=== PATIENT | female | born 1995 | race Two or more races ===

== ENCOUNTER → 2023-03-22 13:05 | Outpatient (BNVA) | payer OTHER, SELFPAY | PROVIDERS: PCP Internal Medicine; Visit Provider Physician Assistant Surgical ==

== ENCOUNTER 2023-03-30 07:48 | Outpatient (REF) | payer OTHER, SELFPAY ==
[2023-03-31 11:42] LABS: H Pylori Breath Test Negative (Negative)
== END 2023-03-30 07:49 | disposition home or self-care (01) ==
LOC: HO.LNP 07:48
PROVIDERS: Visit Provider Physician Assistant Surgical
DX: E66.01 Morbid (severe) obesity due to excess calories (principal)
CPT/HCPCS: 83013

== ENCOUNTER → 2023-03-30 08:32 | Outpatient (BNVA) | payer OTHER, SELFPAY | PROVIDERS: PCP Internal Medicine; Visit Provider Physician Assistant Surgical | DX: Z11.0 Encounter for screening for intestinal infectious diseases (principal); E66.01 Morbid (severe) obesity due to excess calories; Z68.42 Body mass index [BMI] 45.0-49.9, adult | CPT/HCPCS: 99202; 99211 ==

== ENCOUNTER 2023-03-31 10:00 | Outpatient (REF) | payer OTHER, SELFPAY ==
--- NOTE | ~2023-03-31 | XR_ITS ---
EXAMINATION: XR CHEST CLINICAL INFORMATION: Obesity COMPARISON: None available. TECHNIQUE: 2 views of the chest were obtained. FINDINGS: No significant abnormality is noted involving the heart, lungs, mediastinum, bony thorax or soft tissues. XR/XR chest 2V IMPRESSION: Unremarkable examination.
--- NOTE | 2023-03-31 10:08 | ECG_ITS ---
Test Reason : E66.01 Blood Pressure : / mmHG Vent. Rate : 081 BPM Atrial Rate : 081 BPM P-R Int : 140 ms QRS Dur : 072 ms QT Int : 402 ms P-R-T Axes : 024 037 008 degrees QTc Int : 466 ms Normal sinus rhythm Normal ECG No previous ECGs available Referred By: Valery Duncan Electronically Signed By:FANI GUZMAN MD
[2023-03-31 10:22] LABS: MANUAL DIFF FLAG NO
[2023-03-31 10:42] LABS: Basophils Percent Auto 0.4 % (0-2); Eosinophils Absolute Auto 0.1 X10*3/uL (0.0-0.4); Eosinophils Percent Auto 1.1 % (0-4); Hematocrit 39.8 % (37.0-47.0); Hemoglobin 12.5 g/dl (12.0-16.0); Imm Gran Abs Auto 0.04 X10*3/uL (0.00-0.03); Imm Gran Pct Auto 0.5 % (0.0-0.4); Lymphocytes Absolute Auto 1.2 X10*3/uL (1.2-4.9); Lymphocytes Percent Auto 14.6 % (20-40); Mean Corpuscular HGB Conc 31.4 g/dl (31.0-35.0); Mean Corpuscular Hemoglobin 26.1 pg (27.0-33.0); Mean Corpuscular Volume 83.1 fL (80.0-98.0); Mean Platelet Volume 11.5 fL (9.4-12.3); Monocytes Absolute Auto 0.5 X10*3/uL (0.1-1.2); Neutrophils Absolute Auto 6.3 x10*3/uL (2.0-8.3); Neutrophils Percent Auto 77.4 % (45-73); Platelet Count 289 X10*3/uL (160-400); Red Blood Count 4.79 X10*6/uL (4.20-5.50); Red Cell Distribution Width 13.7 % (11.0-16.0); White Blood Count 8.1 X10*3/uL (4.8-10.8)
[2023-03-31 11:29] LABS: Estimated Average Glucose 108 mg/dL; Hemoglobin A1c % 5.4 %
[2023-03-31 11:30] LABS: Alanine Aminotransferase 13 U/L (0-31); Albumin Level 4.2 g/dL (3.5-5.0); Alkaline Phosphatase 91 U/L (39-117); Anion Gap 14 (12-20); Aspartate Amino Transferase 13 U/L (5-31); Bilirubin Total 0.8 mg/dL (0.0-1.0); Blood Urea Nitrogen 9 mg/dL (9-16); C Reactive Protein 0.87 mg/dL (< or = 0.50); Carbon Dioxide 25 mmol/L (22-29); Chloride 104 mmol/L (96-108); Cholesterol 177 mg/dL; Estimated Glomerular Filt Rate > 60; Glucose Random 93 mg/dL (60-115); HDL Cholesterol 41 mg/dL; Iron 54 mcg/dL (30-160); LDL Cholesterol Calculated 117 mg/dl; Percent Iron Saturation 16 % (15-50); Sodium 139 mmol/L (135-145); Total Iron Binding Capacity 332 mcg/dL (228-428); Total Protein 7.6 g/dL (6.5-8.0); Triglycerides 97 mg/dL; Unsaturated Iron Binding 278 ug/dL
[2023-03-31 11:39] LABS: Ferritin 73 ng/mL (10-122); Insulin 21 uU/mL (2-29); TSH reflex Free T4 2.23 uIU/mL (0.32-4.0); Vitamin D 25-OH Total 24.4 ng/mL (>30)
[2023-03-31 11:56] LABS: Folate 11.9 ng/mL (> or = 4.0); Vitamin B12 394 pg/mL (200-900)
[2023-04-04 15:34] LABS: Calcium (PTHI) 9.1 mg/dL (8.6-10.2); PTHI 112 pg/mL (16-77)
[2023-04-06 01:03] LABS: Zinc 68 mcg/dL (60-130)
[2023-04-06 16:02] LABS: Vitamin A 39 mcg/dL (38-98)
[2023-04-08 13:54] LABS: Vitamin B1 13 nmol/L (8-30)
== END 2023-03-31 10:01 | disposition home or self-care (01) ==
LOC: HO.LAB 10:00
PROVIDERS: PCP Internal Medicine; Visit Provider Physician Assistant Surgical
DX: E66.01 Morbid (severe) obesity due to excess calories (principal)
CPT/HCPCS: 36415; 71046; 80053; 80061; 82306; 82607; 82728; 82746; 83036; 83525; 83540; 83970; 84425; 84443; 84590; 84630; 85025; 86140; 93005

== ENCOUNTER 2023-04-13 09:54 | Outpatient (REF) | payer OTHER, SELFPAY ==
--- NOTE | ~2023-04-13 | FL_ITS ---
EXAMINATION: XR FLUOROSCOPY UPPER GI WITH AIR CLINICAL INFORMATION: Obesity COMPARISON: None available. TECHNIQUE: Upper GI was performed using thin and thick barium and effervescent granules FINDINGS: Esophageal motility is normal. There is gastroesophageal reflux. No hernia is seen. The stomach and duodenum are normal. No fold thickening, mass, ulcer or stricture. FLUOROSCOPY TIME: 0.3 minutes DOSE AREA PRODUCT: 3.4 miller per centimeter squared. Total dose 24 mgy. 16 saved fluoroscopic images. FL/FL upper GI w air IMPRESSION: Gastroesophageal reflux otherwise unremarkable exam
== END 2023-04-13 09:55 | disposition home or self-care (01) ==
LOC: HO.XRAY 09:54
PROVIDERS: PCP Internal Medicine; Visit Provider Physician Assistant Surgical
DX: E66.01 Morbid (severe) obesity due to excess calories (principal)
CPT/HCPCS: 74246

== ENCOUNTER 2023-04-18 08:24 | Outpatient (REF) | payer OTHER, SELFPAY ==
--- NOTE | ~2023-04-18 | US_ITS ---
EXAMINATION: US COMPLETE ABDOMEN WITH LIVER ELASTOGRAPHY CLINICAL INFORMATION: Morbid obesity COMPARISON: None available. TECHNIQUE: Real-time imaging of the abdominal viscera. Noninvasive ultrasound liver fibrosis assessment is performed using Mamadou Elast[employer] point quantification shear wave elastography (2D-SWE) with a C5-2 MHz transducer. Multiple elastography samples are obtained. FINDINGS: PANCREAS: Normal. The visualized pancreatic head and body are normal in appearance. The remainder of the pancreas is obscured from visualization by the overlying bowel gas. ABDOMINAL AORTA: The proximal, middle, and distal aortic segments are normal in caliber. INFERIOR VENA CAVA: Visualized portions are normal. LIVER: Normal. The liver demonstrates normal size, contour and echogenicity. No focal lesion or intrahepatic biliary duct dilatation. The right lobe measures 16.4 cm in length. The left lobe measures 10.5 cm in length. Portal flow is hepatopedal Shear wave liver elastography median stiffness is 1.61 m/s (reference: normal median stiffness is 1.3 m/s or less). IQR/median stiffness to assess sampling precision is 0.11 (reference: good quality data set is IQR/median stiffness of 0.15 or less). GALLBLADDER: Normal. The gallbladder is physiologically distended without evidence of stones, sludge, polyps, wall thickening or pericholecystic fluid. COMMON BILE DUCT: Normal in caliber measuring 0.3 cm in diameter. RIGHT KIDNEY: Normal. No hydronephrosis. No renal calculi or focal parenchymal lesions. The kidney measures 10.5 cm in maximum dimension. LEFT KIDNEY: Normal. No hydronephrosis. No renal calculi or focal parenchymal lesions. The kidney measures 11.1 cm in maximum dimension. SPLEEN: Normal. The spleen measures 11.7 cm in maximum dimension. FREE FLUID: None. US/US abdomen comp w elastography IMPRESSION: 1. Normal abdominal ultrasound study. 2. Liver elastography: In the absence of other known clinical signs, measurements rule out compensated advanced chronic liver disease. If there are known clinical signs, further testing may be needed for confirmation. REFERENCE: Society of Radiologists in Ultrasound Liver Stiffness Thresholds (2019): LIVER STIFFNESS THRESHOLDS: *Liver Stiffness equal or less than 1.3 m/s: High probability of being normal. *Liver Stiffness less than 1.7 m/s: In the absence of other known clinical signs, rules out compensated advanced chronic liver disease. *Liver Stiffness 1.7-2.1 m/s: Suggestive of compensated advanced chronic liver disease but need further test for confirmation. *Liver Stiffness over 2.1 m/s: Rules in compensated advanced chronic liver disease. *Liver Stiffness over 2.4 m/s: Suggestive of clinically significant portal hypertension. QUALITY OF DATA SET: *IQR/Median value equal or less than 0.15 implies a quality data set. *IQR/Median value over 0.15 implies a poor quality data set. SIGNIFICANT CHANGE FROM PRIOR EXAM: Significant change if liver stiffness measurement is 10% or greater from prior exam. OTHER CONSIDERATIONS: The stage of liver fibrosis may be overestimated in the setting of acute hepatitis, liver inflammation, elevated liver function tests, hepatic vascular congestion, obstructive cholestasis, non-fasting state, and infiltrative diseases such as amyloidosis and lymphoma. In some patients with NAFLD, the liver stiffness thresholds for compensated advanced chronic liver disease may be lower. In causes other than viral hepatitis and NAFLD, liver stiffness thresholds are not well established.
== END 2023-04-18 08:25 | disposition home or self-care (01) ==
LOC: HO.US 08:24
PROVIDERS: PCP Internal Medicine; Visit Provider Physician Assistant Surgical
DX: E66.01 Morbid (severe) obesity due to excess calories (principal)
CPT/HCPCS: 76705; 76981

== ENCOUNTER 2023-04-26 10:31 | Outpatient (AMB) | payer OTHER, SELFPAY ==
[2023-04-26 10:33] VITALS: BP 120/68; PULSE 81; TEMP 36.3; O2SAT 95; BMI 44.2
--- NOTE | 2023-04-26 10:33 | A.OFFVIS_ITS ---
Intake VS Expanded 04/26/23 10:33 Height 5 ft 3 in Weight 249 lb 6.4 oz BMI 44.2 BP 120/68 Blood Pressure Location Rt brachial Blood Pressure Position Sitting Pulse 81 Pulse Source Pulse Oximeter Temp 97.4 F Temperature Source Temporal Artery Scan Pulse Oximetry 95 Oxygen Delivery Method Room Air Body Fat 110.4 Body Fat Percentage 44.3 Free Fat Mass 138.8 Muscle Mass 131.8 Visceral Mass 12.0 Water Mass 99.8 BMR 1,984 Intake Visit Reasons: (OV) F/U SWL Allergies No Known Allergies Allergy (Verified 04/26/23 10:36) Medication List - Last Reconciled 04/26/23 by СЕРГЕЙ Horton cholecalciferol (vitamin D3) 50 mcg PO DAILY HPI HPI Comments History of Present Illness Details The patient is a pleasant 28 year old female who returns to the clinic for pre-operative surgical weight loss management.? They were last seen in the office on 03/30/2023, recorded weight at that time was 258.2 pounds, with a BMI of 45.7.? Today's weight is 249.4 pounds and BMI is 44.2.? There has been a weight loss of 8.8 pounds since initiating the surgical weight loss program on 03/30/2023 with a total body weight loss of 3.4 %. Pre op work up completed as follows: SWL classes:? 02/21 BH appts: 05/03? RD appts: 05/02 Labs: 03/31, high CRP and PTH, low vit D H. pylori: 03/30, negative CXR: 03/31, unremarkable exam EK/15, NSR ABD U/S: done 04/18, read pending UGI: 04/13 Gastroesophageal reflux otherwise unremarkable exam? Sleep study: 04/28 Current meal plan includes: 2 Premier Protein shakes: 2 scoops in 8oz vanilla unsweetened almond milk (30 calories per 8oz) at 8:30am-10:30am and 1 scoop in 8oz vanilla unsweetened almond milk at 3pm-5pm 2 protein bars ([employer] or Atkins) at 12pm-2pm Dinner at 7pm (8 forks / 4 oz of protein and 8 forks / 4 oz of salad/vegetables).? Pt will sometimes have some yogurt (4oz) with lunchtime protein bar if she feels hungry Pt reports she changed to [employer] shakes. Current exercise plan includes: started walking, 30 min outside 3x/week PFSH Surgical History Hx of foot surgery Hx of wisdom tooth extraction Family History Mother Asthma Father No problems noted. Sister No problems noted. Sister PCOS (polycystic ovarian syndrome) Sister Epilepsy Sister Diabetes Son Autism Son Autism Son No problems noted. Social History Alcohol intake: current Alcohol intake frequency: holidays/special occasions only Patient Tobacco Use Status: Never used Tobacco Physical Exam Vital Signs: Last Vital Signs Temp 97.4 F 04/26/23 10:33 Pulse 81 04/26/23 10:33 BP 120/68 04/26/23 10:33 Pulse Ox 95 04/26/23 10:33 Oxygen Delivery Method Room Air 04/26/23 10:33 BMI result Body Mass Index 44.2 Assessment & Plan Assessment & Plan (1) Morbid obesity: Code(s): E66.01 - Morbid (severe) obesity due to excess calories Plan Pt to continue same meal plan but make sure she has either half a protein bar in evening, or a few oz yogurt at lunch to get to protein goal. Encouraged increasing exercise as able but also congratulated pt on making exercise a part of her routine considering she has a busy work schedule and has 3 young children. Labs reviewed, vit D previously supplemented. Will have pt meet with Dr. Thomas in 2 weeks, then next visit with me 2 weeks subsequent to that. Patient is morbidly obese and is not considered stable at this time. I spent a total of 30 minutes reviewing/updating records, examining the patient and counseling the patient on weight management as detailed above. Coding Level of Care Code Est Pt Level 4 (64173) Diagnoses Morbid obesity E66.01
== END 2023-04-26 11:08 | disposition home or self-care (01) ==
PROVIDERS: PCP Internal Medicine; Visit Provider Physician Assistant Surgical
DX: E66.01 Morbid (severe) obesity due to excess calories (principal); Z68.41 Body mass index [BMI] 40.0-44.9, adult
CPT/HCPCS: 99214

== ENCOUNTER → 2023-04-26 10:31 | Outpatient (BNVA) | payer OTHER, SELFPAY | PROVIDERS: PCP Internal Medicine; Visit Provider Physician Assistant Surgical | DX: E66.01 Morbid (severe) obesity due to excess calories (principal); Z68.41 Body mass index [BMI] 40.0-44.9, adult | CPT/HCPCS: 99212 ==

== ENCOUNTER → 2023-04-28 13:50 | Outpatient (REF) | payer OTHER, SELFPAY | LOC: HO.SL 13:50 | PROVIDERS: PCP Internal Medicine; Visit Provider Physician Assistant Surgical | DX: R06.83 Snoring (principal); E66.01 Morbid (severe) obesity due to excess calories | CPT/HCPCS: 95806 ==

== ENCOUNTER → 2023-04-28 13:59 | Outpatient (BNV) | payer OTHER, SELFPAY | PROVIDERS: PCP Internal Medicine; Visit Provider Psychiatry & Neurology Neurology | DX: R06.83 Snoring (principal) | CPT/HCPCS: 95806 ==

== ENCOUNTER 2023-05-02 09:00 | Outpatient (AMB) | payer OTHER, SELFPAY ==
--- NOTE | 2023-05-02 09:19 | MHC.AMNUTRGE ---
Intake Intake Visit Reasons: VIDEO Initial Nutrition [facility] Allergies No Known Allergies Allergy (Verified 04/26/23 10:36) HPI Nutrition Presentation Reason for consult elevated BMI Diet Assmnt Details 2 Aug[employer] protein shakes 26g, 1 bar, 1 meal Tuesday night had potato salad, rice, and meat. didn't feel good after eating it yesterday had alisa soup Stopped drinking soda and juice. Trying to drink more water. Exercise: walking 30 minute 1.5 miles - tracking on apple watch [facility] online classes: 01/22 completed Previous weight loss methods attempted Never tried to really change eating habits. Dietary counseling reduction Meal frequency regular: breakfast (linda dnouts breakfast sandwich , refresher drink), dinner and snacks and irregular: lunch ([employer] or fast food) Lifestyle Eating out 4 or more times/week Food frequency Dairy: daily (cheese and yogurt ), Fruit: daily, Vegetables: daily, Grains/pasta/breads/cereal (carbs): daily, Meats/poultry/fish (protein): daily, Soda: daily (but stopped 1 month ), Juice: daily and Coffee: never Diagnosis Nutrition problem #1 overweight/obesity As related to (etiology) #1 excess energy intake and physical inactivity As evidenced by (sign/symptom) #1 high BMI Monitoring/Goals Nutrition problem monitoring total energy intake, level of knowledge/skill, total PRO intake, total CHO intake, weight and oral fluids Outcome progress progressing Learning/Education Readiness to learn good Stages of change action Educational materials provided Yes Most Recent Diabetes Results: Cholesterol 177 mg/dL 03/31/23 HDL Cholesterol 41 mg/dL 03/31/23 Triglycerides 97 mg/dL 03/31/23 Creatinine 0.76 mg/dL (0.5-1.4) 03/31/23 Blood Urea Nitrogen 9 mg/dL (9-16) 03/31/23 Sodium 139 mmol/L (135-145) 03/31/23 Potassium 4.0 mmol/L (3.3-5.1) 03/31/23 Chloride 104 mmol/L (96-108) 03/31/23 Carbon Dioxide 25 mmol/L (22-29) 03/31/23 Calcium 9.0 mg/dL (8.4-10.2) 03/31/23 AST 13 U/L (5-31) 03/31/23 ALT 13 U/L (0-31) 03/31/23 Total Protein 7.6 g/dL (6.5-8.0) 03/31/23 Albumin 4.2 g/dL (3.5-5.0) 03/31/23 PFSH Surgical History Hx of foot surgery Hx of wisdom tooth extraction Family History Mother Asthma Father No problems noted. Sister No problems noted. Sister PCOS (polycystic ovarian syndrome) Sister Epilepsy Sister Diabetes Son Autism Son Autism Son No problems noted. Social History Alcohol intake: current Alcohol intake frequency: holidays/special occasions only Patient Tobacco Use Status: Never used Tobacco Assessment & Plan Assessment & Plan (1) Morbid obesity: Code(s): E66.01 - Morbid (severe) obesity due to excess calories Patient Instructions: Pt will continue her nutrition plan and focus on consistency. She will work on increasing exercise to 5 days, or increase duration. Finish online classes and follow-up with me in 4-6 weeks Telehealth Telehealth Location of provider rendering services: practice address Location of patient: address on file Patient Identification confirmed using: Name, : Yes Telehealth method: video Patient verbally consented to treatment: Yes Patient verbally consented to billing insurance company: Yes Patient informed of any privacy concerns related to visit: Yes Minutes spent on Phone/Video with Pt.: 30 Coding Level of Care Code Nutr Indiv Intake (83869) Diagnoses Morbid obesity E66.01 Time Spent (min) 30
== END 2023-05-02 12:55 | disposition home or self-care (01) ==
LOC: HO.HBS 09:42
PROVIDERS: PCP Internal Medicine; Visit Provider Dietitian, Registered
DX: E66.01 Morbid (severe) obesity due to excess calories (principal)

== ENCOUNTER → 2023-05-02 09:00 | Outpatient (BNVA) | payer OTHER, SELFPAY | PROVIDERS: PCP Internal Medicine; Visit Provider Dietitian, Registered | DX: E66.01 Morbid (severe) obesity due to excess calories (principal); Z71.3 Dietary counseling and surveillance | CPT/HCPCS: 97802 ==

== ENCOUNTER 2023-05-03 09:07 | Outpatient (AMB) | payer OTHER, SELFPAY ==
--- NOTE | 2023-05-03 09:09 | MHC.WMTHER ---
Intake Intake Visit Reasons: VIDEO BH Intake Allergies No Known Allergies Allergy (Verified 04/26/23 10:36) PFSH Surgical History Hx of foot surgery Hx of wisdom tooth extraction Family History Mother Asthma Father No problems noted. Sister No problems noted. Sister PCOS (polycystic ovarian syndrome) Sister Epilepsy Sister Diabetes Son Autism Son Autism Son No problems noted. Social History Alcohol intake: current Alcohol intake frequency: holidays/special occasions only Patient Tobacco Use Status: Never used Tobacco Behavioral Health Assessment Weight Management Therapy Therapy Notes Details Pt is looking to have weight loss surgery to help improve her health and quality of life. She stated that she struggles to keep up with her children, has low energy , and out of breathe often. She reported no therapist and stated that she has never been in therapy as an adult. Pt has no history of problems with drugs or alcohol, no eating disorder diagnosis from the past, no legal issues, and no history of inpatient psychiatric admissions. Presenting Concerns Referral Source provider Reason for referral weight loss surgery evaluation Precipitating Event obesity Living Situation Current Living Situation Rent At risk of losing current housing? No Satisfied with current living situation? Yes Comments She lives with her children ages 7, 6, and 1. Food/Weight/Diet Expectations of change weight loss and maintenance History/Relationship with food Pt stated that she has a very busy life with raising children, working all day and going to school. She would often have fast food and soda. Often would skip meals as well. History/Relationship with weight She reported life long weight issues, previously to having children she was 230lbs. Pt stated that she would gain and drastically loose as a teenager and had to have tests done for her thyroid/other conditions. History/Relationship with dieting OTC pills, keto, smaller portions Binge Eating Do you frequently eat large amounts of food in short periods of time, not feeling physically hungry? No Do you feel out of control when you eat a large amount of food in a short period of time? No Do you eat large amounts of food rapidly and typically alone? Yes Night Eating Do you wake up at least once during the night to eat? No If you wake up in the night, do you find that it is necessary to eat something in order to fall back asleep? Yes Do you have little or no appetite in the morning and feel very hungry in the evening, often overeating between dinner and when you go to bed? Yes Social History Family history and relationship Pt has three children that she lives with alone. She reported help from their father. 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 none Education Highest grade completed Currently in school for respitory therapy. Preferred learning style Auditory, Verbal, Written, Learn by doing and Visual Currently enrolled in educational program? Yes Interested in further educational program? 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 No Meaningful activities walking, going to the park with the kids Financial Situation Describe current financial situation Occasional struggle Financial assistance? None Service Service? No Mental Health and Addiction Treatment Current/Past substance abuse? No Current/Past addictive behavior concerns? No Medical and Physical Health Summary Physical exam in the last year? Yes Pain Screening Current pain? No Pain in the last few months? No Medications Is the patient compliant with medications? Yes Does the patient have Gonsalez Guardian in place? Not applicable Does the patient use complimentary health approaches? No Trauma/Abuse History History of trauma? No Questionnaires PHQ-9 Over the last 2 weeks, how often have you been bothered by any of the following problems? 1. Little interest or pleasure in doing things: several days 2. Feeling down, depressed, or hopeless: several days 3. Trouble falling or staying asleep, or sleeping too much: more than half the days 4. Feeling tired or having little energy: more than half the days 5. Poor appetite or overeating: nearly every day 6. Feeling bad about yourself - or that you are a failure or have let yourself or your family down: not at all 7. Trouble concentrating on things, such as reading the newspaper or watching television: several days 8. Moving or speaking so slowly that other people could have noticed. Or the opposite - being so fidgety or restless that you have been moving around a lot more than usual: not at all 9. Thoughts that you would be better off or of hurting yourself in some way: not at all Total score: 10 Source: Developed by Drs. Jalen Jones, Isabella Jackson, Saurabh Santo and colleagues, with an educational maria esther from [employer]. Binge Eating Scale Group 1 A. I don't feel self-conscious about my wt. or body size when I'm with others. B. I feel concerned about how I look to others, but it normally does not make me fell disappointed with myself C. I do get self-conscious about my appearance and wt. which makes me feel disappointed in myself. D. I feel very self-conscious about my wt. and frequently I feel intense shame and disgust for myself. I try to avoid social contacts because of my self-consciousness. Response Group 1: C Group 2 A. I don't have any difficulty eating slowly in the proper manner. B. Although I seem to gobble down foods, I don't end up feeling stuffed because of eating to much. C. At times, I tend to eat quickly and then, I feel uncomfortably full afterwards. D. I have the habit of bolting down my food, without really chewing it. When this happens I usually feel uncomfortably stuffed because I've eaten to much. Response Group 2: C Group 3 A. I feel capable to control my eating urges when I want to. B. I feel like I have failed to control my eating more than the average person. C. I feel utterly helpless when it comes to feeling in control of my eating urges. D. Because I feel so helpless about controlling my eating I have become very desperate about trying to get control. Response Group 3: B Group 4 A. I don't have the habit of eating when I'm bored. B. I sometimes eat when I'm bored, but often I'm able to get busy and get my mind off food. C. I have a regular habit of eating when I'm bored, but occasionally, I can use some other activity to get my mind off eating. D. I have a strong habit of eating when I'm bored. Nothing seems to help me breath the habit. Response Group 4: D Group 5 A. I'm usually physically hungry when I eat something. B. Occasionally, I eat something on impulse even though I really am not hungry. C. I have the regular habit of eating foods, that I might not really enjoy, to satisfy a hungry feeling even though physically, I don't need the food. D. Although I'm not physically hungry, I get a hungry feeling in my mouth that only seems to be satisfied when I eat a food, like sandwich, that fills my mouth. Sometimes, when I eat the food to satisfy my mouth hunger, I then spit the food out so I won't gain weight. Response Group 5: B Group 6 A. I don't feel any guilt or self-hate after I overeat. B. After I overeat, occasionally I feel guilt or self-hate. C. Almost all the time I experience strong guilt or self-hate after I overeat. Response Group 6: B Group 7 A. I don't lose total control of my eating when dieting even after periods when I overeat. B. Sometimes when I eat a forbidden food on a diet, I feel like I blew it and eat even more. C. Frequently, I have the habit of saying to myself, I've blown it now, why not go all the way, when I overeat on a diet. When that happens I eat more. D. I have a regular habit of starting a strict diets for myself but I break the diets by going on an eating binge. My life seems to be either a feast or famine. Response Group 7: B Group 8 A. I rarely eat so much food that I feel uncomfortably stuffed afterwards. B. Usually about once a month, I each such a quantity of food, I end up feeling very stuffed. C. I have regular periods during the month when I eat large amounts of food, either at mealtime or at snacks. D. I eat so much food that I regularly feel quite uncomfortable after eating and sometimes a bit nauseous. Response Group 8: B Group 9 A. My level of calorie intake does not go up very high or go down very low on a regular basis. B. Sometimes after I overeat, I will try to reduce my caloric intake to almost nothing to compensate for the excess calories I've eaten. C. I have a regular habit of overeating during the night. It seems that my routine is not to be hungry in the morning but overeat in the evening. D. In my adult years, I have had week-long periods where I practically starve myself. This follows periods when I overeat. It seems I live a life of either feast or famine. Response Group 9: D Group 10 A. I usually am able to stop eating when I want to. I know when enough is enough. B. Every so often, I experience a compulsion to eat which I can't seem to control. C. Frequently, I experience strong urges to eat which I seem unable to control, but at other times I can control my eating urges. D. I feel incapable of controlling urges to eat. I have a fear of not being able to stop eating voluntarily. Response Group 10: A Group 11 A. I don't have any problem stopping eating when I feel full. B. I usually can stop eating when I feel full but occasionally overeat leaving me feeling uncomfortably stuffed. C. I have a problem stopping eating once I start and usually I feel uncomfortably stuffed after I eat a meal. D. Because I have a problem not being able to stop eating when I want, I sometimes have to induce vomiting to relieve my stuffed feeling. Response Group 11: A Group 12 A. I seem to eat just as much when I'm with others, Family social gatherings as when I'm by myself. B. Sometimes, when I'm with other persons, I don't eat as much as I want to eat because I'm self-conscious about my eating. C. Frequently, I eat only a small amount of food when others are present, because I'm very embarrassed about my eating. D. I feel so ashamed about overeating that I pick times to overeat when I know no one will see me. I feel like a closet eater. Response Group 12: A Group 13 A. I eat three meals a day with only an occasional between meal snack. B. I eat 3 meals a day, but I also normally snack between meals. C. When I am snacking heavily, I get in the habit of skipping regular meals. D. There are regular periods when I seem to be continually eating, with no planned meals. Response Group 13: D Group 14 A. I don't think much about trying to control unwanted eating urges. B. At least some of the time, I feel my thoughts are pre-occupied with trying to control my eating urges. C. I feel that frequently I spend much time thinking about how much I ate or about trying not to eat anymore. D. It seems to me that most of my waking hours are pre-occupied by thoughts about eating or not eating. I feel like I'm constantly struggling not to eat. Response Group 14: A Group 15 A. I don't think about food a great deal. B. I have strong craving for food but they last only for brief periods of time. C. I have days when I can't seem to think about anything else but food. D. Most of my days seem to be pre-occupied with thoughts about food. I feel like I live to eat. Response Group 15: B Group 16 A. I usually know whether or not I'm physically hungry. I take the right portion of food to satisfy me. B. Occasionally, I feel uncertain about knowing whether or not I'm physically hungry. A these times it's hard to know how much food I should take to satisfy me. C. Even though I might know how many calories I should eat, I don't have any idea what is a normal amount of food for me. Response Group 16: C Binge Eating Score: 21 Score less than 17 Minimal Risk Score between 18-26 Moderate Risk Score between 27-46 High Risk Assessment & Plan Assessment & Plan (1) Adjustment disorder, unspecified: Code(s): F43.20 - Adjustment disorder, unspecified (2) Morbid obesity: Code(s): E66.01 - Morbid (severe) obesity due to excess calories Plan Patient reported doing well, some struggles around food and one food based meal but no reported serious issues. She is cleared for surgery when ready. Telehealth Telehealth Location of provider rendering services: other Location of patient: address on file Patient Identification confirmed using: Name, : Yes Telehealth method: video Patient verbally consented to treatment: Yes Patient verbally consented to billing insurance company: Yes Patient informed of any privacy concerns related to visit: Yes Minutes spent on Phone/Video with Pt.: 45 Coding Level of Care Code Tele Psy Diag Eval (05541) Diagnoses Adjustment disorder, unspecified F43.20 Morbid obesity E66.01 Time Spent (min) 45
== END 2023-05-03 09:38 | disposition home or self-care (01) ==
LOC: HO.HBST 09:07
PROVIDERS: PCP Internal Medicine; Visit Provider Counselor Mental Health
DX: F43.20 Adjustment disorder, unspecified (principal); E66.01 Morbid (severe) obesity due to excess calories
CPT/HCPCS: 90791

== ENCOUNTER → 2023-05-03 09:07 | Outpatient (BNVA) | payer OTHER, SELFPAY | PROVIDERS: PCP Internal Medicine; Visit Provider Counselor Mental Health ==

== ENCOUNTER 2023-05-10 09:21 | Outpatient (AMB) | payer OTHER, SELFPAY ==
--- NOTE | 2023-05-10 09:43 | MHC.OFFVISWM ---
Intake VS Expanded 05/10/23 09:52 Height 5 ft 3 in Weight 247 lb BMI 43.7 BP 123/73 Blood Pressure Location Lt brachial Blood Pressure Position Sitting Pulse 84 Temp 97 F Temperature Source Temporal Artery Scan Oxygen Flow Rate 98 Body Fat 112.4 Body Fat Percentage 45.5 Free Fat Mass 134.4 Muscle Mass 127.6 Visceral Mass 12.0 Water Mass 96.6 BMR 1,930 Neck Circumference 16 in Waist Circumference 3 ft 7 in Intake Visit Reasons: (OV) F/U SWL Intake Note: Patient is seen in office for follow up visit, following surgical weight loss. Veterans' Coordinator Required: No Accompanied by: Self / Same As Patient Allergies No Known Allergies Allergy (Verified 05/10/23 09:56) HPI HPI Comments History of Present Illness Details The patient is a 28-year-old woman who reports weight gain that started in high school and predominantly kept at bay by being active. She notes that her weight has continued to increase after childbirth; she has no plans to increase her family number at this time and has 3 children at home with an IUD in place. The patient is tried other fad diets and portion restriction within affective weight loss so she is interested in surgical weight loss, specifically a sleeve gastrectomy. She reports her heaviest weight is 259 lb and entered the surgical weight loss program with a weight of 258 lb. Today's weight 247 pounds and BMI is 43.8.? There has been a weight loss of 10.8 pounds since initiating the surgical weight loss program on 03/30/2023. Pre op work up completed as follows: SWL classes:? 02/21 BH appts: 05/03? RD appts: 05/02 Labs: 03/31, high CRP and PTH, low vit D H. pylori: 03/30, negative CXR: 03/31, unremarkable exam EK/15, NSR ABD U/S: done 04/18, read pending UGI: 04/13?Gastroesophageal reflux otherwise unremarkable exam? Sleep study: 04/28 [facility] Surgical History Hx of foot surgery Hx of wisdom tooth extraction Family History Mother Asthma Father No problems noted. Sister No problems noted. Sister PCOS (polycystic ovarian syndrome) Sister Epilepsy Sister Diabetes Son Autism Son Autism Son No problems noted. Social History Alcohol intake: current Alcohol intake frequency: holidays/special occasions only Patient Tobacco Use Status: Never used Tobacco Review of Systems Const All systems reviewed & are unremarkable except as noted in HPI and below Reports as per HPI Physical Exam The patient is non-toxic & in good spirits NC/AT, PERRLA, EOMI Mood, affect & judgment all appear appropriate Sclera anicteric conjunctiva pink and moist Oropharynx is clear with no aphthous ulcers, Mallampati class 4, mucous membranes moist Neck is supple with no masses, adenopathy or bruits Thyroid is nontender and free of dominant masses Heart is regular, normal S1-S2 no rubs or murmurs Lungs are clear and equal anteriorly with no audible wheezing, rubs or dullness to percussion Abdomen is obese with no demonstrable hernias. No HSM, rebound, rigidity, guarding, masses or bruits are present. Rectal exam is deferred Skin has good turgor and is free of rashes Extremities free of cyanosis clubbing edema Results Reviewed Results Reviewed: Labs 03/31/23 Hemoglobin 12.5 with normal indices, iron studies are within normal limits; platelet count 289k, white blood cell count 8.1 BUN 9, creatinine 0.76 Hemoglobin A1c 5.4 CRP elevated 0.87 Lipids, liver function tests, electrolytes within normal parameters Vitamin-D slightly low in being replaced, other multivitamins normal Diagnostic imaging CXR: NAD UGI: No HH, GERD Abd U/S: No significant pathology Sleep study result is pending Assessment & Plan Assessment & Plan (1) Vitamin D deficiency: Code(s): E55.9 - Vitamin D deficiency, unspecified (2) Morbid obesity: Code(s): E66.01 - Morbid (severe) obesity due to excess calories (3) Adjustment disorder, unspecified: Code(s): F43.20 - Adjustment disorder, unspecified Plan Using a teaching line assembly utility worker, I reviewed normal pathophysiology and options regarding surgical weight loss including laparoscopic sleeve gastrectomy, gastric bypass and continued medical weight loss. The importance of following postoperative diet that is high in lean protein and fiber and minimizing carbohydrates and fats was discussed and apparently understood. I reviewed the inherent risks of this procedure which include, but are not limited to: Bleeding that could require another operation or blood transfusion; the inherent risks of transfusion reaction infectious disease from blood transfusions; the risk of staple line leaks that could cause sepsis, multi-system organ failure and ; the risk of mesenteric or deep vein thrombosis of the lower extremities that could cause a fatal pulmonary embolism was reviewed; the risk of GERD that could require conversion to gastric bypass was discussed; the risk of recurrent hiatal hernia, especially in the setting of weight regain was reviewed. The risk of weight regain if maladaptive eating and sedentary behavior continue was discussed. The importance of proper diet and increased activity to augment surgical weight loss and the fact that no operation would result in weight loss of poor dietary decisions and sedentary behavior are resumed were discussed at length and apparently understood. The patient had the option of having a extension division director present and declined this option. 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 She had some questions regarding work restrictions postoperatively which seemed to be satisfactorily answered. Patient will follow-up with me a week after she sees Valery Duncan and continue on her current diet and work on increasing her exercise to 5 days a week, preferably every other day. Coding Level of Care Code Est Pt Level 4 (45994) Diagnoses Vitamin D deficiency E55.9 Morbid obesity E66.01 Adjustment disorder, unspecified F43.20
[2023-05-10 09:52] VITALS: BP 123/73; PULSE 84; TEMP 36.1; BMI 43.7
== END 2023-05-10 10:00 | disposition home or self-care (01) ==
PROVIDERS: PCP Internal Medicine; Visit Provider Surgery
DX: E66.01 Morbid (severe) obesity due to excess calories (principal); Z68.41 Body mass index [BMI] 40.0-44.9, adult; F43.20 Adjustment disorder, unspecified; E55.9 Vitamin D deficiency, unspecified
CPT/HCPCS: 99214

== ENCOUNTER → 2023-05-10 09:21 | Outpatient (BNVA) | payer OTHER, SELFPAY | PROVIDERS: PCP Internal Medicine; Visit Provider Surgery | DX: E66.01 Morbid (severe) obesity due to excess calories (principal); F43.20 Adjustment disorder, unspecified; Z68.41 Body mass index [BMI] 40.0-44.9, adult | CPT/HCPCS: 99212 ==

== ENCOUNTER 2023-05-24 10:54 | Outpatient (AMB) | payer OTHER, SELFPAY ==
--- NOTE | 2023-05-24 10:56 | A.OFFVIS_ITS ---
Intake VS Expanded 05/24/23 11:03 Height 5 ft 3 in Weight 244 lb BMI 43.2 BP 125/76 Blood Pressure Location Rt brachial Blood Pressure Position Sitting Pulse 89 Pulse Source Pulse Oximeter Temp 97.3 F Temperature Source Tympanic Pulse Oximetry 96 Oxygen Delivery Method Room Air Body Fat 105.4 Body Fat Percentage 43.2 Free Fat Mass 138.4 Muscle Mass 131.4 Visceral Mass 11.0 Water Mass 99.4 BMR 1,970 Intake Visit Reasons: (OV) F/U SWL Hotel [employer] Dining Room Cashier Required: No Allergies No Known Allergies Allergy (Verified 05/24/23 11:06) Medication List - Last Reviewed 05/24/23 by Rakel Quezada CMA cholecalciferol (vitamin D3) 50 mcg PO DAILY HPI HPI Comments History of Present Illness Details The patient is a pleasant 28 year old female who returns to the clinic for pre-operative surgical weight loss management.? They were last seen in the office on 03/30/2023, recorded weight at that time was 258.2 pounds, with a BMI of 45.7.? Today's weight is 249.4 pounds and BMI is 44.2.? There has been a weight loss of 8.8 pounds since initiating the surgical weight loss program on 03/30/2023 with a total body weight loss of 5.5 %. Pre op work up completed as follows: SWL classes:?05/24 BH appts: cleared 05/03? RD appts: needs followup Labs: 03/31, high CRP and PTH, low vit D H. pylori: 03/30, negative CXR: 03/31, unremarkable exam EK/15, NSR ABD U/S: done 04/18, WNL UGI: 04/13?Gastroesophageal reflux otherwise unremarkable exam? Sleep study: 04/28, no evidence of sleep apnea/hypoxemia Current meal plan includes: 2 [employer] shakes 8:30am-10:30am and 3pm-5pm 2 protein bars ([employer]Crunch or Atkins) at 12pm-2pm and optional 8-10pm (or second bar could be replaced with yogurt) Dinner at 7pm (8 forks / 4 oz of protein and 8 forks / 4 oz of salad/vegetables).? Pt will sometimes have some yogurt (4oz) with lunch Pt had changed to [employer]life shakes but plans to purchase the 30g version once she finishes her 26g shakes. Current exercise plan includes: started walking, 30 min outside 3x/week PFSH Surgical History Hx of foot surgery Hx of wisdom tooth extraction Family History Mother Asthma Father No problems noted. Sister No problems noted. Sister PCOS (polycystic ovarian syndrome) Sister Epilepsy Sister Diabetes Son Autism Son Autism Son No problems noted. Social History Alcohol intake: current Alcohol intake frequency: holidays/special occasions only Patient Tobacco Use Status: Never used Tobacco Assessment & Plan Assessment & Plan (1) Morbid obesity: Code(s): E66.01 - Morbid (severe) obesity due to excess calories (2) Adjustment disorder, unspecified: Code(s): F43.20 - Adjustment disorder, unspecified (3) Vitamin D deficiency: Code(s): E55.9 - Vitamin D deficiency, unspecified Plan Pt would like to continue same meal plan for now. She has increased walking for exercise to 4-5 days per week. Preop workup completed; pt has one additional followup with RD now that she has finished SWL classes. RTC [address] Thomas, then 3 weeks subsequent for next visit with me. Patient is morbidly obese and is not considered stable at this time. I spent a total of 30 minutes reviewing/updating records, examining the patient and counseling the patient on weight management as detailed above. Coding Level of Care Code Est Pt Level 4 (77614) Diagnoses Morbid obesity E66.01 Adjustment disorder, unspecified F43.20 Vitamin D deficiency E55.9
[2023-05-24 11:03] VITALS: BP 125/76; PULSE 89; TEMP 36.3; O2SAT 96; BMI 43.2
== END 2023-05-24 11:41 | disposition home or self-care (01) ==
PROVIDERS: PCP Internal Medicine; Visit Provider Physician Assistant Surgical
DX: E66.01 Morbid (severe) obesity due to excess calories (principal); Z68.41 Body mass index [BMI] 40.0-44.9, adult; F43.20 Adjustment disorder, unspecified; E55.9 Vitamin D deficiency, unspecified
CPT/HCPCS: 99214

== ENCOUNTER → 2023-05-24 10:54 | Outpatient (BNVA) | payer OTHER, SELFPAY | PROVIDERS: PCP Internal Medicine; Visit Provider Physician Assistant Surgical | DX: E66.01 Morbid (severe) obesity due to excess calories (principal); E55.9 Vitamin D deficiency, unspecified; F43.20 Adjustment disorder, unspecified; Z68.41 Body mass index [BMI] 40.0-44.9, adult | CPT/HCPCS: 99212 ==

== ENCOUNTER 2023-05-31 | Outpatient (REF) | payer OTHER, SELFPAY | END 2023-05-31 00:01 | LOC: CF | PROVIDERS: PCP Internal Medicine; Visit Provider Surgery | DX: E66.01 Morbid (severe) obesity due to excess calories (principal); E55.9 Vitamin D deficiency, unspecified; F43.20 Adjustment disorder, unspecified; Z68.41 Body mass index [BMI] 40.0-44.9, adult | CPT/HCPCS: 99212 ==

== ENCOUNTER 2023-05-31 08:08 | Outpatient (AMB) | payer OTHER, SELFPAY ==
--- NOTE | 2023-05-31 08:23 | A.OFFVIS_ITS ---
Intake VS Expanded 05/31/23 08:26 Height 5 ft 3 in Weight 244 lb 9.6 oz BMI 43.3 BP 123/69 Blood Pressure Location Rt brachial Blood Pressure Position Sitting Pulse 98 Pulse Source Pulse Oximeter Temp 96.9 F Temperature Source Temporal Artery Scan Pulse Oximetry 96 Oxygen Delivery Method Room Air Body Fat 110.4 Body Fat Percentage 45.2 Free Fat Mass 134.0 Muscle Mass 127.2 Visceral Mass 12.0 Water Mass 96.4 BMR 1,921 Intake Visit Reasons: (OV) F/U SWL System Manager Required: No License Clerk: License Clerk offered & declined Allergies No Known Allergies Allergy (Verified 05/31/23 08:27) Medication List - Last Reconciled 05/31/23 by Bassem Thomas MD cholecalciferol (vitamin D3) 50 mcg PO DAILY HPI HPI Comments History of Present Illness Details The patient is a 28-year-old woman who reports weight gain that started in high school and predominantly kept at bay by being active. She notes that her weight has continued to increase after childbirth; she has no plans to increase her family number at this time and has 3 children at home with an IUD in place. The patient is tried other fad diets and portion restriction within affective weight loss so she is interested in surgical weight loss, specifically a sleeve gastrectomy. She reports her heaviest weight is 259 lb and entered the surgical weight loss program with a weight of 258 lb. The patient notes that she is doing well on her current diet and is having morning shake, a lunch bar or shake, the yogurt and at 15:00 shake Dinner is frequently 4 oz of lean protein with 4 oz of vegetable or fruit She is currently walking 3 days a week approximately 30-60 minutes. On her phone, she dropped her last exercise session which was 232 kilocalorie views burned over 35 minutes Today's weight 244.6 pounds and BMI is 43.3.? There has been a weight loss of 13.4 pounds since initiating the surgical weight loss program on 03/30/2023. Pre op work up completed as follows: SWL classes:?05/24 appts: cleared 05/03? RD appts: needs followup Labs: 03/31, high CRP and PTH, low vit D H. pylori: 03/30, negative CXR: 03/31, unremarkable exam EK/15, NSR ABD U/S: done 04/18, WNL UGI: 04/13?Gastroesophageal reflux otherwise unremarkable exam? Sleep study: 04/28, no evidence of sleep apnea/hypoxemia PFSH Surgical History Hx of foot surgery Hx of wisdom tooth extraction Family History Mother Asthma Father No problems noted. Sister No problems noted. Sister PCOS (polycystic ovarian syndrome) Sister Epilepsy Sister Diabetes Son Autism Son Autism Son No problems noted. Social History Alcohol intake: current Alcohol intake frequency: holidays/special occasions only Patient Tobacco Use Status: Never used Tobacco Physical Exam Vital Signs: Last Vital Signs Temp 96.9 F 05/31/23 08:26 Pulse 98 05/31/23 08:26 BP 123/69 05/31/23 08:26 Pulse Ox 96 05/31/23 08:26 Oxygen Delivery Method Room Air 05/31/23 08:26 BMI result Body Mass Index 43.3 On exam she is nontoxic She is in good spirits She is in no acute respiratory distress Her sclera anicteric Abdomen is obese and nontender Results Reviewed Results Reviewed: Labs 03/31/23 Hemoglobin 12.5 with normal indices, iron studies are within normal limits; platelet count 289k, white blood cell count 8.1 BUN 9, creatinine 0.76 Hemoglobin A1c 5.4 CRP elevated 0.87 Lipids, liver function tests, electrolytes within normal parameters Vitamin-D slightly low in being replaced, other multivitamins normal Diagnostic imaging CXR: NAD UGI: No HH, GERD Abd U/S: No significant pathology Sleep study 04/28/23 result is negative for obstructive sleep apnea Assessment & Plan Assessment & Plan (1) Class 3 obesity: Code(s): E66.01 - Morbid (severe) obesity due to excess calories (2) Vitamin D deficiency: Code(s): E55.9 - Vitamin D deficiency, unspecified (3) Adjustment disorder, unspecified: Code(s): F43.20 - Adjustment disorder, unspecified (4) Morbid obesity: Code(s): E66.01 - Morbid (severe) obesity due to excess calories Plan The patient is congratulated on her healthy lifestyle changes and rib weight loss. We reviewed her diet and she does note that she has occasionally straight from the diet purchasing fast food for convenience reasons since there is been an unexpected in the family. She noted an intolerance to the food and now a preference for the healthier food and protein shakes that she is taking. The importance of increased activity to help facilitate weight loss was discussed and apparently understood. Her diet will stay as previously adjusted but she will try to increase to an additional day of walking or extend the 3 days to 60 minutes with a goal of 300 kilocalorie per exercise session. Using a teaching gang leader, again we reviewed the options of bypass at, medical weight loss and sleeve gastrectomy. The patient remains interested in a laparoscopic sleeve gastrectomy. We briefly reviewed the risks of dehydration, DVT and PE. The importance of following the diet and avoiding during the day 1st 18 months was again discussed. Patient currently has an IUD. Her questions seemed to be satisfactorily answered. She will follow up with Valery and all see her the week after that. Patient is advised that if she gets to 8% weight loss, she is free to contact us to begin submitting paperwork for insurance. She will be in college full-time at that point in the importance of allowing 1-2 weeks to focus on hydration and her own health postoperatively to minimize complications related to dehydration was reviewed and apparently understood. Coding Level of Care Code Est Pt Level 4 (57663) Diagnoses Class 3 obesity E66.01 Vitamin D deficiency E55.9 Adjustment disorder, unspecified F43.20 Morbid obesity E66.01
[2023-05-31 08:26] VITALS: BP 123/69; PULSE 98; TEMP 36.1; O2SAT 96; BMI 43.3
== END 2023-05-31 09:38 | disposition home or self-care (01) ==
PROVIDERS: PCP Internal Medicine; Visit Provider Surgery
DX: E66.01 Morbid (severe) obesity due to excess calories (principal); Z68.41 Body mass index [BMI] 40.0-44.9, adult; E55.9 Vitamin D deficiency, unspecified; F43.20 Adjustment disorder, unspecified
CPT/HCPCS: 99214

== ENCOUNTER 2023-06-02 09:12 | Outpatient (AMB) | payer OTHER, SELFPAY ==
--- NOTE | 2023-06-02 09:06 | A.OFFVIS_ITS ---
Intake Intake Visit Reasons: VIDEO f/u SWL Allergies No Known Allergies Allergy (Verified 05/31/23 08:27) HPI Nutrition Presentation Reason for consult elevated BMI Diet Assmnt Details 8:30 Core power shake - 26g 12pm fitcrunch bar 16g 3pm Core protein 26g 6pm dinner 4oz chicken, 2oz brococli, 2oz cauliflower she likes this plan, doesn't feel hungry. Patient has no questions or concerns today Exercise: walking 4x per week 30 minute-45 minutes - tracking on [employer] online classes: completed , scored well on post op material. reviewed. Previous weight loss methods attempted Never tried to really change eating habits. Diagnosis Nutrition problem #1 overweight/obesity As related to (etiology) #1 excess energy intake and physical inactivity As evidenced by (sign/symptom) #1 high BMI Monitoring/Goals Nutrition problem monitoring total energy intake, level of knowledge/skill, total PRO intake, total CHO intake, weight and oral fluids Outcome progress progressing Learning/Education Readiness to learn good Stages of change action Educational materials provided Yes Most Recent Diabetes Results: No Data to Display PFSH Surgical History Hx of foot surgery Hx of wisdom tooth extraction Family History Mother Asthma Father No problems noted. Sister No problems noted. Sister PCOS (polycystic ovarian syndrome) Sister Epilepsy Sister Diabetes Son Autism Son Autism Son No problems noted. Social History Alcohol intake: current Alcohol intake frequency: holidays/special occasions only Patient Tobacco Use Status: Never used Tobacco Assessment & Plan Assessment & Plan (1) Morbid obesity: Code(s): E66.01 - Morbid (severe) obesity due to excess calories Patient Instructions: Patient is cleared from a nutrition standpoint for bariatric surgery. Educational requirements have been completed. Reviewed vitamin supplementation and commitment to protein shake for several months post surgery. Encouraged communication with office as needed Telehealth Telehealth Location of provider rendering services: practice address Location of patient: address on file Patient Identification confirmed using: Name, : Yes Telehealth method: video Patient verbally consented to treatment: Yes Patient verbally consented to billing insurance company: Yes Patient informed of any privacy concerns related to visit: Yes Minutes spent on Phone/Video with Pt.: 15 Coding Level of Care Code Nutr Indiv Subseq ([id number]) Diagnoses Morbid obesity E66.01 Time Spent (min) 15
== END 2023-06-02 09:14 | disposition home or self-care (01) ==
LOC: HO.HBS 09:12
PROVIDERS: PCP Internal Medicine; Visit Provider Dietitian, Registered
DX: E66.01 Morbid (severe) obesity due to excess calories (principal)

== ENCOUNTER → 2023-06-02 09:12 | Outpatient (BNVA) | payer OTHER, SELFPAY | PROVIDERS: PCP Internal Medicine; Visit Provider Dietitian, Registered | DX: E66.01 Morbid (severe) obesity due to excess calories (principal) | CPT/HCPCS: 97803 ==

== ENCOUNTER 2023-06-28 11:29 | Outpatient (AMB) | payer OTHER, SELFPAY ==
--- NOTE | 2023-06-28 11:31 | A.OFFVIS_ITS ---
Intake VS Expanded 06/28/23 11:43 Height 5 ft 3 in Weight 245 lb 3.2 oz BMI 43.4 BP 124/58 L Blood Pressure Location Rt radial Blood Pressure Position Sitting Pulse 82 Pulse Source Pulse Oximeter Temp 96.7 F L Temperature Source Temporal Artery Scan Pulse Oximetry 97 Oxygen Delivery Method Room Air Body Fat 110.2 Body Fat Percentage 45.0 Free Fat Mass 135.0 Muscle Mass 128.0 Visceral Mass 12.0 Water Mass 97.0 BMR 1,932 Intake Visit Reasons: (OV) F/U SWL Allergies No Known Allergies Allergy (Verified 06/28/23 11:39) Medication List - Last Reconciled 06/28/23 by СЕРГЕЙ Horton cholecalciferol (vitamin D3) 50 mcg PO DAILY HPI HPI Comments History of Present Illness Details The patient is a pleasant 28 year old female who returns to the clinic for pre-operative surgical weight loss management.? They were last seen in the office on 05/31/2023, recorded weight at that time was 244.6 pounds.? Today's weight is 245.2 pounds and BMI is 43.4.? There has been a weight loss of 13 pounds since initiating the surgical weight loss program on 03/30/2023 with a total body weight loss of 5.03 %. Pt reports a lot of stress, school started, had a lot of events including her dad's wedding, was helping her [id number] after she fractured her ankle. Pre op work up completed as follows: SWL classes:?05/24 BH appts: cleared 05/03? RD appts: cleared 06/02 Labs: 03/31, high CRP and PTH, low vit D H. pylori: 03/30, negative CXR: 03/31, unremarkable exam EK/15, NSR ABD U/S: done 04/18, WNL UGI: 04/13?Gastroesophageal reflux otherwise unremarkable exam? Sleep study: 04/28, no evidence of sleep apnea/hypoxemia Current meal plan: 8:30 Fairlife 30g shake - chocolate 12pm fitcrunch bar 16g or chicken with s alad 3pm Fairlife 30g shake 6pm dinner 4oz chicken, 2oz broccoli, 2o z cauliflower drinking adequate fluids Exercise: walking 4x per week 30-45 minutes - tracking on apple watch PFSH Surgical History Hx of foot surgery Hx of wisdom tooth extraction Family History Mother Asthma Father No problems noted. Sister No problems noted. Sister PCOS (polycystic ovarian syndrome) Sister Epilepsy Sister Diabetes Son Autism Son Autism Son No problems noted. Social History Alcohol intake: current Alcohol intake frequency: holidays/special occasions only Patient Tobacco Use Status: Never used Tobacco Assessment & Plan Assessment & Plan (1) Morbid obesity: Code(s): E66.01 - Morbid (severe) obesity due to excess calories (2) Adjustment disorder, unspecified: Code(s): F43.20 - Adjustment disorder, unspecified (3) Vitamin D deficiency: Code(s): E55.9 - Vitamin D deficiency, unspecified Plan Pt would like to continue same meal plan and will make a concerted effort with her adherence. Encouraged increasing time spent exercising as well. Her preop testing is complete. She will follow up at previously scheduled appt with Dr. Thomas next week. Encouraged her to reach out via text with any questions or concerns between visits. Patient is morbidly obese and is not considered stable at this time. I spent a total of 30 minutes reviewing/updating records, examining the patient and counseling the patient on weight management as detailed above. Coding Level of Care Code Est Pt Level 4 (85052) Diagnoses Morbid obesity E66.01 Adjustment disorder, unspecified F43.20 Vitamin D deficiency E55.9
[2023-06-28 11:43] VITALS: BP 124/58; PULSE 82; TEMP 35.9; O2SAT 97; BMI 43.4
== END 2023-06-28 12:13 | disposition home or self-care (01) ==
PROVIDERS: PCP Internal Medicine; Visit Provider Physician Assistant Surgical
DX: E66.01 Morbid (severe) obesity due to excess calories (principal); Z68.41 Body mass index [BMI] 40.0-44.9, adult; E55.9 Vitamin D deficiency, unspecified
CPT/HCPCS: 99213

== ENCOUNTER → 2023-06-28 11:29 | Outpatient (BNVA) | payer OTHER, SELFPAY | PROVIDERS: PCP Internal Medicine; Visit Provider Physician Assistant Surgical ==

== ENCOUNTER 2023-07-04 12:45 | Outpatient (AMB) | payer OTHER, SELFPAY ==
--- NOTE | 2023-07-04 12:52 | A.OFFVIS_ITS ---
Intake VS Expanded 07/04/23 12:57 Height 5 ft 3 in Weight 247 lb 9.6 oz BMI 43.9 Blood Pressure Location Rt brachial Blood Pressure Position Sitting Pulse 90 Pulse Source Pulse Oximeter Temp 97.5 F Temperature Source Temporal Artery Scan Pulse Oximetry 97 Oxygen Delivery Method Room Air Body Fat 109.8 Body Fat Percentage 44.3 Free Fat Mass 137.8 Muscle Mass 131.0 Visceral Mass 12.0 Water Mass 99.0 BMR 1,969 Intake Visit Reasons: (OV) F/U SWL Allergies No Known Allergies Allergy (Verified 07/04/23 12:55) HPI HPI Comments History of Present Illness Details The patient is a 28-year-old woman who reports weight gain that started in high school and predominantly kept at bay by being active. She notes that her weight has continued to increase after childbirth; she has no plans to increase her family number at this time and has 3 children at home with an IUD in place. The patient is tried other fad diets and portion restriction within affective weight loss so she is interested in surgical weight loss, specifically a sleeve gastrectomy. She reports her heaviest weight is 259 lb and entered the surgical weight loss program with a weight of 258 lb. Her goal weight loss for surgery: 233 lbs / 25lbs weight loss; 07/04/23 office visit weight: 247.6 lbs/43.9 BMI, which is less than 50% goal. Today's weight is a 2 lb gain from last visit, but represents 11 lb weight loss since entering the program. The patient notes that she has not been trending her calorie expenditure during exercise due to not charging her watch or phone & is walking 3 days/week about 30 minutes. The patient notes that she is doing well on her current diet: Fairlife 30gm shake at breakfast Nooon/lunch bar or shake, or chicken & a green salad 3pm shake Fairlife 30 gm Dinner is frequently 4 oz of lean protein with 4 oz of vegetable or fruit Pre op work up completed as follows: SWL classes:?05/24 BH appts: cleared 05/03? RD appts: needs followup Labs: 03/31, high CRP and PTH, low vit D H. pylori: 03/30, negative CXR: 03/31, unremarkable exam EK/15, NSR ABD U/S: done 04/18, WNL UGI: 04/13?Gastroesophageal reflux otherwise unremarkable exam? Sleep study: 04/28, no evidence of sleep apnea/hypoxemia PFSH Surgical History Hx of wisdom tooth extraction Hx of foot surgery Family History Mother Asthma Father No problems noted. Sister No problems noted. Sister PCOS (polycystic ovarian syndrome) Sister Epilepsy Sister Diabetes Son Autism Son Autism Son No problems noted. Social History Alcohol intake: current Alcohol intake frequency: holidays/special occasions only Patient Tobacco Use Status: Never used Tobacco Review of Systems Const All systems reviewed & are unremarkable except as noted in HPI and below Reports as per HPI Physical Exam On exam she is nontoxic She is in good spirits She is in no acute respiratory distress Her sclera anicteric Abdomen is obese and nontender Results Reviewed Results Reviewed: Labs 03/31/23 Hemoglobin 12.5 with normal indices, iron studies are within normal limits; platelet count 289k, white blood cell count 8.1 BUN 9, creatinine 0.76 Hemoglobin A1c 5.4 CRP elevated 0.87 Lipids, liver function tests, electrolytes within normal parameters Vitamin-D slightly low in being replaced, other multivitamins normal Diagnostic imaging CXR: NAD UGI: No HH, GERD Abd U/S: No significant pathology Sleep study 04/28/23 result is negative for obstructive sleep apnea Assessment & Plan Assessment & Plan (1) Class 3 obesity: Code(s): E66.01 - Morbid (severe) obesity due to excess calories (2) Vitamin D deficiency: Code(s): E55.9 - Vitamin D deficiency, unspecified (3) Adjustment disorder, unspecified: Code(s): F43.20 - Adjustment disorder, unspecified Plan We reviewed the patient's recent weight gain and the fact that she has plateaue d. The importance of following the meal plan and upstaging from any snacking, especially of high carbohydrate/high fat foods was reviewed. The importance of trending her exercise burning a minimum of 350 kcal per session was reviewed in the patient notes that she has not been trending her exercise expenditure. She voiced is appointment over the weight gain and states that she has confused as to how she could gain weight with following the diet and exercising. Patient noted she would charge her cell phone and wash to trend her calorie expenditure with exercise. She is instructed to continue the current meal plan, concentrated on avoiding high carbohydrate/high fat foods and will follow up with me and 3 weeks. We again reviewed the fact that no operative intervention would result in weight loss if diet and increased activity/exercise were not part of the postoperative care. Patient verbalized understanding and her questions seemed to be answered. Coding Level of Care Code Est Pt Level 4 (75753) Diagnoses Class 3 obesity E66.01 Vitamin D deficiency E55.9 Adjustment disorder, unspecified F43.20
[2023-07-04 12:57] VITALS: PULSE 90; TEMP 36.4; O2SAT 97; BMI 43.9
== END 2023-07-04 13:12 | disposition home or self-care (01) ==
PROVIDERS: PCP Internal Medicine; Visit Provider Surgery
DX: E66.01 Morbid (severe) obesity due to excess calories (principal); Z68.41 Body mass index [BMI] 40.0-44.9, adult; E55.9 Vitamin D deficiency, unspecified; F43.20 Adjustment disorder, unspecified
CPT/HCPCS: 99214

== ENCOUNTER → 2023-07-04 12:45 | Outpatient (BNVA) | payer OTHER, SELFPAY | PROVIDERS: PCP Internal Medicine; Visit Provider Surgery | DX: E66.01 Morbid (severe) obesity due to excess calories (principal); E55.9 Vitamin D deficiency, unspecified; F43.20 Adjustment disorder, unspecified; Z68.41 Body mass index [BMI] 40.0-44.9, adult | CPT/HCPCS: 99212 ==

== ENCOUNTER 2023-07-18 12:47 | Outpatient (AMB) | payer OTHER, SELFPAY ==
--- NOTE | 2023-07-18 12:50 | MHC.OFFVISWM ---
Intake VS Expanded 07/18/23 12:56 BP 126/58 L Blood Pressure Location Rt brachial Blood Pressure Position Sitting Pulse 84 Pulse Source Pulse Oximeter Temp 98.0 F Temperature Source Tympanic Pulse Oximetry 95 Oxygen Delivery Method Room Air Height 5 ft 3 in Weight 243 lb 9.6 oz BMI 43.1 Body Fat % 43.7 Body Fat Mass 106.2 Fat Free Mass 137.2 Visceral Fat Rating 11.0 Body Water % 40.5 Body Water Mass 98.6 Muscle Mass/Score 130.2 Basal Metabolic Rate/Score 1,954 Intake Visit Reasons: (OV) F/U SWL Survey Research Analyst Required: No Head Banquet Waitress: Head Banquet Waitress offered & declined Allergies No Known Allergies Allergy (Verified 07/18/23 13:06) HPI HPI Comments History of Present Illness Details The patient is a 28-year-old woman who reports weight gain that started in high school and predominantly kept at bay by being active. She notes that her weight has continued to increase after childbirth; she has no plans to increase her family number at this time and has 3 children at home. Pt states an IUD in place & she has no plans to increase family/become . The patient is tried other fad diets and portion restriction within affective weight loss so she is interested in surgical weight loss, specifically a sleeve gastrectomy. She reports her heaviest weight is 259 lb and entered the surgical weight loss program with a weight of 258 lb. Her goal weight loss for surgery: 233 lbs / 25lbs weight loss; 07/18/23 office visit weight today: 247.6 lbs/43.1 BMI. Today's weight is a 4 lb loss from last visit, and represents 7 lb weight loss since entering the program. The patient notes that she has been trending her calorie expenditure during exercise & she's been reaching 350 kcal/session. The patient notes that she is doing well on her current diet: Fairlife 30gm premixed shake at breakfast at 8:30am Noon/lunch shake, or chicken & a green salad 3pm shake Fairlife 30 gm or protein bar Dinner is frequently 4 oz of lean protein with 4 oz of vegetable or fruit The pt reports hunger in the morning & we reviewed options: the pt can add a Monegasque yogurt as a mid-morning snack around 10-1030am, or a hard-boiled egg. Pt notes on the go life at times & wanted permission to change the order of the morning's meal plan, based on her time, which seems reasonable. The importance of avoiding carbs & drive-through foods was discussed and seemed to be understood. The pt will call if she needs adjustment re: meal plan. Pre op work up completed as follows: SWL classes:?05/24 BH appts: cleared 05/03? RD appts: cleared after her 06/02 visit Labs: 03/31, high CRP and PTH, low vit D (pt reports taking Vit D as directed) H. pylori: 03/30, negative CXR: 03/31, unremarkable exam EK/15, NSR ABD U/S: done 04/18, WNL UGI: 04/13?Gastroesophageal reflux otherwise unremarkable exam? Sleep study: 04/28, no evidence of sleep apnea/hypoxemia PFSH Surgical History Hx of wisdom tooth extraction Hx of foot surgery Family History Mother Asthma Father No problems noted. Sister No problems noted. Sister PCOS (polycystic ovarian syndrome) Sister Epilepsy Sister Diabetes Son Autism Son Autism Son No problems noted. Social History Alcohol intake: current Alcohol intake frequency: holidays/special occasions only Patient Tobacco Use Status: Never used Tobacco Review of Systems Const All systems reviewed & are unremarkable except as noted in HPI and below Reports as per HPI Physical Exam On exam she is nontoxic She is in good spirits She is in no acute respiratory distress Her sclera anicteric Abdomen is obese and nontender Results Reviewed Results Reviewed: Labs 03/31/23 Hemoglobin 12.5 with normal indices, iron studies are within normal limits; platelet count 289k, white blood cell count 8.1 BUN 9, creatinine 0.76 Hemoglobin A1c 5.4 CRP elevated 0.87 Lipids, liver function tests, electrolytes within normal parameters Vitamin-D slightly low in being replaced, other multivitamins normal Diagnostic imaging CXR: NAD UGI: No HH, GERD Abd U/S: No significant pathology Sleep study 04/28/23 result is negative for obstructive sleep apnea Assessment & Plan Assessment & Plan (1) Class 3 obesity: Code(s): E66.01 - Morbid (severe) obesity due to excess calories (2) Vitamin D deficiency: Code(s): E55.9 - Vitamin D deficiency, unspecified (3) Adjustment disorder, unspecified: Code(s): F43.20 - Adjustment disorder, unspecified (4) Morbid obesity: Code(s): E66.01 - Morbid (severe) obesity due to excess calories Plan We reviewed the patient's recent weight loss of 4 lbs with following the meal plan & exercise as directed. She expressed concern over being hungry in the morning and we reviewed options including a protein bar, additional shake, egg as well as being sure that changes of the lean protein do not lead to unwise choices regarding fats and carbohydrates her premade fast food.. The importance of following the meal plan and abstaining from any snacking, especially of high carbohydrate/high fat foods was reviewed. The importance of trending her exercise for a minimum of 350 kcal per session was noted by the pt & she will continue. working towards adding another day to increase weight loss was recommended. She is instructed to continue the current meal plan as outlined: Breakfast: Fairlife 30gm shake or 2 eggs--no carbs midmornin-10:30am: Fairlife 30gm shake, or Monegasque yogurt, or a protein bar if she is on the run Noon- Fairlife protein shake 30gm 3pm protein bar dinner 6-7pm: 4 oz protein/4 oz vegs (8 forkfuls/8 forkfuls) She will concentrate on avoiding high carbohydrate/high fat foods and will follow up with me and 3 weeks at the end of Jul. We again reviewed the fact that no operative intervention would result in weight loss if diet and increased activity/exercise were not part of the postoperative care. The importance of following the meal plan & calling with questions/hunger concerns was reviewed. Patient verbalized understanding and her questions seemed to be answered. Goal weight 233 representing a 25 lb weight loss re: pre-op surgery goal discussed; questions answered. Coding Level of Care Code Est Pt Level 4 (42939) Diagnoses Class 3 obesity E66.01 Vitamin D deficiency E55.9 Adjustment disorder, unspecified F43.20 Morbid obesity E66.01
[2023-07-18 12:56] VITALS: BP 126/58; PULSE 84; TEMP 36.7; O2SAT 95; BMI 43.1
== END 2023-07-18 13:18 | disposition home or self-care (01) ==
PROVIDERS: PCP Internal Medicine; Visit Provider Surgery
DX: E66.01 Morbid (severe) obesity due to excess calories (principal); Z68.41 Body mass index [BMI] 40.0-44.9, adult; E55.9 Vitamin D deficiency, unspecified; F43.20 Adjustment disorder, unspecified
CPT/HCPCS: 99214

== ENCOUNTER → 2023-07-18 12:47 | Outpatient (BNVA) | payer OTHER, SELFPAY | PROVIDERS: PCP Internal Medicine; Visit Provider Surgery | DX: E66.01 Morbid (severe) obesity due to excess calories (principal); E55.9 Vitamin D deficiency, unspecified; F43.20 Adjustment disorder, unspecified; Z68.41 Body mass index [BMI] 40.0-44.9, adult | CPT/HCPCS: 99212 ==

== ENCOUNTER → 2023-08-04 08:10 | Outpatient (BNVA) | payer OTHER, SELFPAY | PROVIDERS: PCP Internal Medicine; Visit Provider Physician Assistant Surgical ==

== ENCOUNTER 2023-08-17 14:25 | Outpatient (AMB) | payer OTHER, SELFPAY ==
--- NOTE | 2023-08-17 14:28 | A.OFFVIS_ITS ---
Intake VS Expanded 08/17/23 14:35 BP 117/62 Blood Pressure Location Rt brachial Blood Pressure Position Sitting Pulse 97 Pulse Source Pulse Oximeter Temp 96.5 F L Temperature Source Tympanic Pulse Oximetry 96 Oxygen Delivery Method Room Air Height 5 ft 3 in Weight 239 lb 9.6 oz BMI 42.4 Body Fat % 44.1 Body Fat Mass 105.6 Fat Free Mass 133.8 Visceral Fat Rating 11.0 Body Water % 40.1 Body Water Mass 96.2 Muscle Mass/Score 127.0 Basal Metabolic Rate/Score 1,910 Intake Visit Reasons: (OV) F/U SWL Allergies No Known Allergies Allergy (Verified 07/18/23 13:06) HPI HPI Comments History of Present Illness Details The patient is a 28-year-old woman who reports weight gain that started in high school and predominantly kept at bay by being active/exercising. She notes that her weight has continued to increase after childbirth; she has no plans to increase her familyby becoming . Has 3 children at home. Pt states an IUD in place. She reports she as tried fad diets and portion restriction without effective weight loss. She is interested in surgical weight loss, specifically a sleeve gastrectomy. She reports her heaviest weight is 259 lb and entered the surgical weight loss program with a weight of 258 lb. Her goal weight loss for surgery: 233 lbs / 25lbs weight loss; 08/17/23 office visit weight today: 239.6 lbs/42.4 BMI. Today's weight is a 8 lb loss from last visit, and represents 20 lb weight loss since entering the program. The patient notes that she has been trending her calorie expenditure during exercise & she's been reaching 350 kcal/session. She notes she hasn't exercised the past week due to school testing & URI. The patient notes that she is doing well on her current diet & no longer having hunger: Fairlife 30gm premixed shake at breakfast at 8:30am Noon/lunch shake, or chicken & a green salad 3pm shake Fairlife 30 gm or protein bar Dinner is frequently 4 oz of lean protein with 4 oz of vegetable or fruit Pt notes on the go life at times & wanted permission to change the order of the morning's meal plan, based on her time, which seems reasonable. The importance of avoiding carbs & drive-through foods was discussed and seemed to be understood. The pt will call if she needs adjustment re: meal plan. Pre op work up completed as follows: SWL classes:?05/24 BH appts: cleared 05/03? RD appts: cleared after her 06/02 visit Labs: 03/31, high CRP and PTH, low vit D (pt reports taking Vit D as directed) H. pylori: 03/30, negative CXR: 03/31, unremarkable exam EK/15, NSR ABD U/S: done 04/18, WNL UGI: 04/13?Gastroesophageal reflux otherwise unremarkable exam? Sleep study: 04/28, no evidence of sleep apnea/hypoxemia PFSH Surgical History Hx of wisdom tooth extraction Hx of foot surgery Family History Mother Asthma Father No problems noted. Sister No problems noted. Sister PCOS (polycystic ovarian syndrome) Sister Epilepsy Sister Diabetes Son Autism Son Autism Son No problems noted. Social History Alcohol intake: current Alcohol intake frequency: holidays/special occasions only Patient Tobacco Use Status: Never used Tobacco Review of Systems Const All systems reviewed & are unremarkable except as noted in HPI and below Physical Exam On exam she is nontoxic She is in good spirits She is in no acute respiratory distress Her sclera anicteric Abdomen is obese and nontender Results Reviewed Results Reviewed: Labs 03/31/23 Hemoglobin 12.5 with normal indices, iron studies are within normal limits; platelet count 289k, white blood cell count 8.1 BUN 9, creatinine 0.76 Hemoglobin A1c 5.4 CRP elevated 0.87 Lipids, liver function tests, electrolytes within normal parameters Vitamin-D slightly low in being replaced, other multivitamins normal Diagnostic imaging CXR: NAD UGI: No HH, GERD Abd U/S: No significant pathology Sleep study 04/28/23 result is negative for obstructive sleep apnea Assessment & Plan Assessment & Plan (1) Class 3 obesity: Code(s): E66.01 - Morbid (severe) obesity due to excess calories (2) Morbid obesity: Code(s): E66.01 - Morbid (severe) obesity due to excess calories (3) Vitamin D deficiency: Code(s): E55.9 - Vitamin D deficiency, unspecified (4) Adjustment disorder, unspecified: Code(s): F43.20 - Adjustment disorder, unspecified Plan The patient is congratulated on her ongoing healthy lifestyle choices. We again discussed the importance of meal plan and exercise. Her goal of 233 lbs was discussed and the patient believes she can continue with the current meal plan and is feeling well enough that she can resume exercise and would like to be re- evaluated in 2 weeks. Options including continued medical management versus sleeve gastrectomy were discussed. Patient remains interested sleeve gastrectomy. The risk of weight regain if maladaptive eating and sedentary behavior resume was again discussed and apparently understood. Patient's questions seemed to be satisfactorily answered. The importance of self-care, hydration and looking into purchasing celebrate 4 in 1 protein shakes was again discussed. Patient will return in 2 weeks. Coding Level of Care Code Est Pt Level 4 (87059) Diagnoses Class 3 obesity E66.01 Morbid obesity E66.01 Vitamin D deficiency E55.9 Adjustment disorder, unspecified F43.20
[2023-08-17 14:35] VITALS: BP 117/62; PULSE 97; TEMP 35.8; O2SAT 96; BMI 42.4
== END 2023-08-17 15:42 | disposition home or self-care (01) ==
PROVIDERS: PCP Internal Medicine; Visit Provider Surgery
DX: E66.01 Morbid (severe) obesity due to excess calories (principal); Z68.41 Body mass index [BMI] 40.0-44.9, adult
CPT/HCPCS: 99213

== ENCOUNTER → 2023-08-17 14:25 | Outpatient (BNVA) | payer OTHER, SELFPAY | PROVIDERS: PCP Internal Medicine; Visit Provider Surgery | DX: E66.01 Morbid (severe) obesity due to excess calories (principal); Z68.41 Body mass index [BMI] 40.0-44.9, adult; E55.9 Vitamin D deficiency, unspecified; F43.20 Adjustment disorder, unspecified | CPT/HCPCS: 99212 ==

== ENCOUNTER → 2023-08-31 14:23 | Outpatient (BNVA) | payer OTHER, SELFPAY | PROVIDERS: PCP Internal Medicine; Visit Provider Surgery ==

== ENCOUNTER 2023-09-01 08:12 | Outpatient (AMB) | payer OTHER, SELFPAY ==
--- NOTE | 2023-09-01 08:10 | MHC.OFFVISWM ---
Intake Intake Visit Reasons: (TV) F/U SWL Clinical Practice Consultant Required: No Allergies No Known Allergies Allergy (Verified 07/18/23 13:06) Medication List - Last Reconciled 09/01/23 by Bassem Thomas MD, [facility] [place] cholecalciferol (vitamin D3) 50 mcg PO DAILY HPI HPI Comments History of Present Illness Details The patient is a 28-year-old woman who reports weight gain that started in high school and predominantly kept at bay by being active/exercising. She notes that her weight has continued to increase after childbirth; she has no plans to increase her familyby becoming . Has 3 children at home. Pt states an IUD in place. She reports she as tried fad diets and portion restriction without effective weight loss. She is interested in surgical weight loss, specifically a sleeve gastrectomy. She reports her heaviest weight is 259 lb and entered the surgical weight loss program with a weight of 258 lb. Her goal weight loss for surgery: 233 lbs / 25lbs weight loss; 08/31/23 office visit weight today: 238.6 lbs/42.3 BMI. Today's weight is a 8 lb loss from last visit, and represents 21 lb weight loss since entering the program. The patient notes that she has been trending her calorie expenditure during exercise & she's been reaching 350 kcal/session. The patient notes that she is doing well on her current diet & no longer having hunger: Fairlife 30gm premixed shake at breakfast at 8:30am Noon/lunch shake, or chicken & a green salad 3pm shake Fairlife 30 gm or protein bar Dinner is frequently 4 oz of lean protein with 4 oz of vegetable or fruit Pt notes on the go life at times & wanted permission to change the order of the morning's meal plan, based on her time, which seems reasonable. The importance of avoiding carbs & drive-through foods was discussed and seemed to be understood. The pt will call if she needs adjustment re: meal plan. Pre op work up completed as follows: SWL classes:?05/24 BH appts: cleared 05/03? RD appts: cleared after her 06/02 visit Labs: 03/31, high CRP and PTH, low vit D (pt reports taking Vit D as directed) H. pylori: 03/30, negative CXR: 03/31, unremarkable exam EK/15, NSR ABD U/S: done 04/18, WNL UGI: 04/13?Gastroesophageal reflux otherwise unremarkable exam? Sleep study: 04/28, no evidence of sleep apnea/hypoxemia PFSH Surgical History Hx of wisdom tooth extraction Hx of foot surgery Family History Mother Asthma Father No problems noted. Sister No problems noted. Sister PCOS (polycystic ovarian syndrome) Sister Epilepsy Sister Diabetes Son Autism Son Autism Son No problems noted. Social History Alcohol intake: current Alcohol intake frequency: holidays/special occasions only Patient Tobacco Use Status: Never used Tobacco Review of Systems Const All systems reviewed & are unremarkable except as noted in HPI and below Results Reviewed Results Reviewed: Labs 03/31/23 Hemoglobin 12.5 with normal indices, iron studies are within normal limits; platelet count 289k, white blood cell count 8.1 BUN 9, creatinine 0.76 Hemoglobin A1c 5.4 CRP elevated 0.87 Lipids, liver function tests, electrolytes within normal parameters Vitamin-D slightly low in being replaced, other multivitamins normal Diagnostic imaging CXR: NAD UGI: No HH, GERD Abd U/S: No significant pathology Sleep study 04/28/23 result is negative for obstructive sleep apnea Assessment & Plan Assessment & Plan (1) Class 3 obesity: Code(s): E66.01 - Morbid (severe) obesity due to excess calories (2) Vitamin D deficiency: Code(s): E55.9 - Vitamin D deficiency, unspecified (3) Adjustment disorder, unspecified: Code(s): F43.20 - Adjustment disorder, unspecified (4) Morbid obesity: Code(s): E66.01 - Morbid (severe) obesity due to excess calories Plan The patient is congratulated on her interval weight loss. She has but a new exercise machine that was arriving next week and would like to proceed with sleeve gastrectomy. We again reviewed the importance of diet and following the recommended meal plan in addition to exercising 4 times a week with a goal of burning 2000 calories per week to optimize surgical weight loss. I again reminded the patient that if she relapses into a high carbohydrate, high fat diet and sedentary behavior, she will regain weight. The patient stated she understands and would like to proceed. We also briefly reviewed the importance of hydration in the inherent risks of surgery including bleeding, infection, weight regain, GERD, risk of DVT that could cause a fatal PE. The option of continuing with medical management given the upcoming holiday season was offered and discussed, but the patient notes that she would like to return to the office for preoperative/perioperative plan and schedule surgery this year. Patient is congratulated on her healthy lifestyle changes and her questions seemed to be satisfactorily answered. In addition to the telephone time, I spent 26 minutes total reviewing her record and tests to help coordinate her care. Follow-up in the office next week for 1 hour preop visit. Telehealth Telehealth Location of provider rendering services: practice address Location of patient: address on file Patient Identification confirmed using: Name, : Yes Telehealth method: voice only Patient verbally consented to treatment: Yes Patient verbally consented to billing insurance company: Yes Patient informed of any privacy concerns related to visit: Yes Minutes spent on Phone/Video with Pt.: 17 Coding Level of Care Code Tele New Pt Level 4 (84328) Diagnoses Class 3 obesity E66.01 Vitamin D deficiency E55.9 Adjustment disorder, unspecified F43.20 Morbid obesity E66.01
== END 2023-09-01 08:47 | disposition home or self-care (01) ==
LOC: HO.HBS 08:12
PROVIDERS: PCP Internal Medicine; Visit Provider Surgery
DX: E66.01 Morbid (severe) obesity due to excess calories (principal); Z68.41 Body mass index [BMI] 40.0-44.9, adult; E55.9 Vitamin D deficiency, unspecified; F43.20 Adjustment disorder, unspecified
CPT/HCPCS: 99213

== ENCOUNTER → 2023-09-01 08:12 | Outpatient (BNVA) | payer OTHER, SELFPAY | PROVIDERS: PCP Internal Medicine; Visit Provider Surgery ==

== ENCOUNTER 2023-09-13 07:46 | Outpatient (REF) | payer OTHER, SELFPAY ==
[2023-09-13 08:15] LABS: MANUAL DIFF FLAG NO
[2023-09-13 08:44] LABS: Basophils Percent Auto 0.4 % (0-2); Eosinophils Absolute Auto 0.1 X10*3/uL (0.0-0.4); Hematocrit 38.4 % (37.0-47.0); Hemoglobin 12.3 g/dl (12.0-16.0); Imm Gran Abs Auto 0.01 X10*3/uL (0.00-0.03); Imm Gran Pct Auto 0.1 % (0.0-0.4); Lymphocytes Percent Auto 14.3 % (20-40); Mean Corpuscular Hemoglobin 25.8 pg (27.0-33.0); Mean Corpuscular Volume 80.5 fL (80.0-98.0); Mean Platelet Volume 11.5 fL (9.4-12.3); Monocytes Absolute Auto 0.5 X10*3/uL (0.1-1.2); Monocytes Percent Auto 7.3 % (2-11); Neutrophils Absolute Auto 5.3 x10*3/uL (2.0-8.3); Neutrophils Percent Auto 76.9 % (45-73); Platelet Count 298 X10*3/uL (160-400); Red Blood Count 4.77 X10*6/uL (4.20-5.50); Red Cell Distribution Width 13.9 % (11.0-16.0); White Blood Count 6.9 X10*3/uL (4.8-10.8)
[2023-09-13 08:48] LABS: INTERNATIONAL NORM RATIO 1.1 (0.9-1.1); Prothrombin Time 13.4 SEC (11.1-13.3)
[2023-09-13 08:51] LABS: Partial Thromboplastin Time 33.7 SEC (26.0-36.4)
[2023-09-13 08:55] LABS: Estimated Average Glucose 108 mg/dL; Hemoglobin A1c % 5.4 % (<6.0)
[2023-09-13 09:19] LABS: Alanine Aminotransferase 16 U/L (0-31); Albumin Level 4.5 g/dL (3.5-5.0); Alkaline Phosphatase 92 U/L (39-117); Anion Gap 15 (12-20); Aspartate Amino Transferase 20 U/L (5-31); Blood Urea Nitrogen 10 mg/dL (9-16); C Reactive Protein 0.89 mg/dL (< or = 0.50); Calcium 9.1 mg/dL (8.4-10.2); Carbon Dioxide 23 mmol/L (22-29); Chloride 103 mmol/L (96-108); Cholesterol 170 mg/dL (<200); Estimated Glomerular Filt Rate > 60; Glucose Random 77 mg/dL (60-115); HDL Cholesterol 32 mg/dL (>40); Iron 47 mcg/dL (30-160); LDL Cholesterol Calculated 123 mg/dL (<100); Percent Iron Saturation 16 % (15-50); Potassium 3.8 mmol/L (3.3-5.1); Sodium 137 mmol/L (135-145); Total Iron Binding Capacity 295 mcg/dL (228-428); Triglycerides 79 mg/dL (<150); Unsaturated Iron Binding 248 ug/dL
[2023-09-13 09:36] LABS: Vitamin B12 636 pg/mL (200-900)
[2023-09-13 09:40] LABS: Ferritin 145 ng/mL (10-122); TSH reflex Free T4 1.37 uIU/mL (0.32-4.0); Vitamin D 25-OH Total 30.8 ng/mL (>30)
[2023-09-16 02:39] LABS: Zinc 84 mcg/dL (60-130)
[2023-09-16 03:13] LABS: Vitamin A 27 mcg/dL (38-98)
[2023-09-17 11:38] LABS: Vitamin B1 6 nmol/L (8-30)
== END 2023-09-13 07:47 | disposition home or self-care (01) ==
LOC: HO.LAB 07:46
PROVIDERS: PCP Internal Medicine; Visit Provider Surgery
DX: E66.01 Morbid (severe) obesity due to excess calories (principal); E55.9 Vitamin D deficiency, unspecified; F43.20 Adjustment disorder, unspecified
CPT/HCPCS: 36415; 80053; 80061; 82306; 82607; 82728; 83036; 83540; 84425; 84443; 84590; 84630; 85025; 85610; 85730; 86140

== ENCOUNTER 2023-09-13 08:20 | Outpatient (AMB) | payer OTHER, SELFPAY ==
--- NOTE | 2023-09-13 08:23 | MHC.OFFVISWM ---
Intake VS Expanded 09/13/23 08:30 BP 145/78 H Blood Pressure Location Rt brachial Blood Pressure Position Sitting Pulse 102 H Pulse Source Pulse Oximeter Temp 97.7 F Temperature Source Tympanic Pulse Oximetry 96 Oxygen Delivery Method Room Air Height 5 ft 3 in Weight 229 lb 3.2 oz BMI 40.6 Body Fat % 44.0 Body Fat Mass 100.8 Fat Free Mass 128.4 Visceral Fat Rating 11.0 Body Water % 40.2 Body Water Mass 92.2 Muscle Mass/Score 122.0 Basal Metabolic Rate/Score 1,831 Intake Visit Reasons: (OV) Pre Op LSG 09/21/23 Library Media Technician: Library Media Technician offered & declined Allergies No Known Allergies Allergy (Verified 09/13/23 08:33) HPI HPI Comments History of Present Illness Details The patient is a 28-year-old woman who reports weight gain that started in high school and predominantly kept at bay by being active/exercising. She notes that her weight has continued to increase after childbirth; she has no plans to increase her family by becoming . Has 3 children at home. Pt states an IUD in place. She reports she as tried fad diets and portion restriction without effective weight loss. She is interested in surgical weight loss, specifically a sleeve gastrectomy. She reports her heaviest weight is 259 lb and entered the surgical weight loss program with a weight of 258 lb/45.7 BMI. Her goal weight loss for surgery was met: 233 lbs / 25lbs weight loss; 09/14/23 office visit weight today: 229.2 lbs/40.6 BMI. Today's weight is a loss from last visit, and represents 29 lb weight loss since entering the SWL program. The patient notes that she has been trending her calorie expenditure during exercise & she's been reaching 350 kcal/session. The patient notes that she is doing well on her current diet (liver shrinking liquid diet sine last week)& no longer having hunger. Fairlife 30gm premixed shake x 4 Pt notes on the go life at times & wanted permission to change the order of the morning's meal plan, based on her time, which seems reasonable. The importance of avoiding carbs & drive-through foods was discussed and seemed to be understood. The pt will call if she needs adjustment re: meal plan. Pre op work up completed as follows: SWL classes:?05/24 appts: cleared 05/03? RD appts: cleared after her 06/02 visit Labs: 03/31, high CRP and PTH, low vit D (pt reports taking Vit D as directed) H. pylori: 03/30, negative CXR: 03/31, unremarkable exam EK/15, NSR ABD U/S: done 04/18, WNL UGI: 04/13?Gastroesophageal reflux otherwise unremarkable exam? Sleep study: 04/28, no evidence of sleep apnea/hypoxemia PFSH Surgical History Hx of wisdom tooth extraction Hx of foot surgery Family History Mother Asthma Father No problems noted. Sister No problems noted. Sister PCOS (polycystic ovarian syndrome) Sister Epilepsy Sister Diabetes Son Autism Son Autism Son No problems noted. Alcohol intake: current Alcohol intake frequency: holidays/special occasions only Patient Tobacco Use Status: Never used Tobacco Review of Systems Const All systems reviewed & are unremarkable except as noted in HPI and below Physical Exam On exam she is nontoxic She is in good spirits She is in no acute respiratory distress Her sclera anicteric Abdomen is obese and nontender Results Reviewed Results Reviewed: Labs 03/31/23 Hemoglobin 12.5 with normal indices, iron studies are within normal limits; platelet count 289k, white blood cell count 8.1 BUN 9, creatinine 0.76 Hemoglobin A1c 5.4 CRP elevated 0.87 Lipids, liver function tests, electrolytes within normal parameters Vitamin-D slightly low in being replaced, other multivitamins normal Diagnostic imaging CXR: NAD UGI: No HH, GERD Abd U/S: No significant pathology Sleep study 04/28/23 result is negative for obstructive sleep apnea Assessment & Plan Assessment & Plan (1) Class 3 obesity: Code(s): E66.01 - Morbid (severe) obesity due to excess calories (2) Vitamin D deficiency: Code(s): E55.9 - Vitamin D deficiency, unspecified (3) Adjustment disorder, unspecified: Code(s): F43.20 - Adjustment disorder, unspecified (4) Morbid obesity: Code(s): E66.01 - Morbid (severe) obesity due to excess calories Plan The patient is congratulated on her ongoing weight loss and options including continued medical weight loss, 2nd opinion, surgical weight loss including sleeve gastrectomy and gastric bypass were discussed. Patient seems to understand her options and would like to proceed with a laparoscopic sleeve gastrectomy, possible hiatal hernia repair, intraoperative upper endoscopy, possible open surgery, possible ventral hernia repair. I reviewed the inherent risks of this procedure which include, but are not limited to: Bleeding that could require another operation or blood transfusion; the inherent risks of transfusion reaction infectious disease from blood transfusions; the risk of staple line leaks that could cause sepsis, multi-system organ failure and ; the risk of mesenteric or deep vein thrombosis of the lower extremities that could cause a fatal pulmonary embolism was reviewed; the risk of GERD that could require conversion to gastric bypass was discussed; the risk of recurrent hiatal hernia, especially in the setting of weight regain was reviewed. The risk of weight regain if maladaptive eating and sedentary behavior continue was discussed. The importance of proper diet and increased activity to augment surgical weight loss and the fact that no operation would result in weight loss of poor dietary decisions and sedentary behavior are resumed were discussed at length and apparently understood. The patient had the option of having a hydrographic surveyor present and declined this option. Perioperative plan including the need to obtain protein shakes(she just purchased them), multivitamins, postop medications including the preoperative bowel prep were discussed & written instructions reviewed/questions answered. The importance of staying on the liquid/protein shake diet as long as possible to optimize weight loss and activity restrictions include that she will be able to walk for exercise was discussed and apparently understood. The patient will void her bladder chiropractor sole practitioner to surgery, have Ancef, 2 g IV and SCDs will be in place. Postoperative activity restrictions including recommendations regarding work were reviewed. 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 We discussed this candidly and that if she is not meeting hydration goals or protein goals at her 1 week postop, we need to proceed in the safest manner to minimize risk and help her recovery. Orders: Orders IRON PROFILE Today E55.9 - Vitamin D deficiency, unspecified, E66.01 - Morbid (severe) obesity due to excess calories, F43.20 - Adjustment disorder, unspecified Hemoglobin A1c Today E55.9 - Vitamin D deficiency, unspecified, E66.01 - Morbid (severe) obesity due to excess calories, F43.20 - Adjustment disorder, unspecified Prothrombin Time INR Today E55.9 - Vitamin D deficiency, unspecified, E66.01 - Morbid (severe) obesity due to excess calories, F43.20 - Adjustment disorder, unspecified Vitamin A Today E55.9 - Vitamin D deficiency, unspecified, E66.01 - Morbid (severe) obesity due to excess calories, F43.20 - Adjustment disorder, unspecified Type and Screen Today E55.9 - Vitamin D deficiency, unspecified, E66.01 - Morbid (severe) obesity due to excess calories, F43.20 - Adjustment disorder, unspecified Vitamin B1 Today E55.9 - Vitamin D deficiency, unspecified, E66.01 - Morbid (severe) obesity due to excess calories, F43.20 - Adjustment disorder, unspecified C Reactive Protein Today E55.9 - Vitamin D deficiency, unspecified, E66.01 - Morbid (severe) obesity due to excess calories, F43.20 - Adjustment disorder, unspecified Partial Thromboplastin Time Today E55.9 - Vitamin D deficiency, unspecified, E66.01 - Morbid (severe) obesity due to excess calories, F43.20 - Adjustment disorder, unspecified Vitamin B12 Today E55.9 - Vitamin D deficiency, unspecified, E66.01 - Morbid (severe) obesity due to excess calories, F43.20 - Adjustment disorder, unspecified Vitamin D 25-OH Total Today E55.9 - Vitamin D deficiency, unspecified, E66.01 - Morbid (severe) obesity due to excess calories, F43.20 - Adjustment disorder, unspecified Comprehensive Met. Panel Today E55.9 - Vitamin D deficiency, unspecified, E66.01 - Morbid (severe) obesity due to excess calories, F43.20 - Adjustment disorder, unspecified TSH reflex Free T4 Today E55.9 - Vitamin D deficiency, unspecified, E66.01 - Morbid (severe) obesity due to excess calories, F43.20 - Adjustment disorder, unspecified Lipid Panel Today E55.9 - Vitamin D deficiency, unspecified, E66.01 - Morbid (severe) obesity due to excess calories, F43.20 - Adjustment disorder, unspecified Complete Blood Count Auto Diff Today E55.9 - Vitamin D deficiency, unspecified, E66.01 - Morbid (severe) obesity due to excess calories, F43.20 - Adjustment disorder, unspecified PTHI Today E55.9 - Vitamin D deficiency, unspecified, E66.01 - Morbid (severe) obesity due to excess calories, F43.20 - Adjustment disorder, unspecified Ferritin Today E55.9 - Vitamin D deficiency, unspecified, E66.01 - Morbid (severe) obesity due to excess calories, F43.20 - Adjustment disorder, unspecified Zinc Today E55.9 - Vitamin D deficiency, unspecified, E66.01 - Morbid (severe) obesity due to excess calories, F43.20 - Adjustment disorder, unspecified Medications: New ondansetron HCl 4 mg PO Q6H PRN 20 tabs 0RF nausea and vomiting polyethylene glycol 3350 (Miralax) Take 7 packets 2 days before surgery and 7 packets 1 day before surgery. Mix each packet with 8 oz's of water before surgery. 14 packets 0RF pantoprazole 40 mg PO QAM 30 days 30 tabs 2RF sucralfate 10 mL PO BID 30 days 600 mL 2RF acetaminophen 500 mg (15 mL) PO Q6H PRN 237 mL 2RF fever or pain Coding Level of Care Code Est Pt Level 4 (38194) Diagnoses Class 3 obesity E66.01 Vitamin D deficiency E55.9 Adjustment disorder, unspecified F43.20 Morbid obesity E66.01
[2023-09-13 08:30] VITALS: BP 145/78; PULSE 102; TEMP 36.5; O2SAT 96; BMI 40.6
== END 2023-09-13 09:13 | disposition home or self-care (01) ==
PROVIDERS: PCP Internal Medicine; Visit Provider Surgery
DX: E66.01 Morbid (severe) obesity due to excess calories (principal); Z68.41 Body mass index [BMI] 40.0-44.9, adult; E55.9 Vitamin D deficiency, unspecified; F43.20 Adjustment disorder, unspecified
CPT/HCPCS: 99499

== ENCOUNTER 2023-09-21 06:14 | Inpatient (IN) | payer OTHER, SELFPAY ==
[2023-09-14 14:38] VITALS: BMI 40.4
--- NOTE | 2023-09-20 09:28 | P.CONAN_ITS ---
Documented by User: Leonie Phillips NP 09/20/23 09:29 HPI - Anesthesia Eval Consult details Narrative: 28yo F for Gastrectomy Sleeve-EGD, possible diaphragmatic hernia, possible ventral hernia, possible open PMFSH Active Problems Active Problems: All Active Problems (Updated 09/14/23 @ 14:41 by Shira Robertson RN) Class 3 obesity (Acute) Vitamin D deficiency (Acute) Adjustment disorder, unspecified (Acute) Morbid obesity (Acute) Past Medical History Medical History Acid reflux History of PCOS Family History Family History Mother Asthma Father No problems noted. Sister No problems noted. Sister PCOS (polycystic ovarian syndrome) Sister Epilepsy Sister Diabetes Son Autism Son Autism Son No problems noted. 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 If so, by whom?: No Are you DNR?: No Advance Directives: No Advance Directives Information Provided: Yes Advance Directives on File: No Recently lost weight without trying: No Nutrition Risks: No Nutritional Risk Patient : No FDLMP: unknown : No Poor oral hygiene: No Meds Allergies Allergy/AdvReac Type Severity Reaction Status Date / Time No Known Allergies Allergy Verified 09/14/23 14:43 Exam Height,Weight and Vital Signs: Height 5 ft 3 in Weight 103.419 kg Pertinent Lab Results Pertinent Lab Results: Laboratory Tests 09/13/23 08:10 Blood Type O Positive Antibody Screen NEGATIVE Laboratory Tests 09/13/23 08:13 WBC 6.9 Hgb 12.3 Hct 38.4 Plt Count 298 Sodium 137 Potassium 3.8 Chloride 103 Carbon Dioxide 23 BUN 10 Creatinine 0.83 Narrative Narrative: EKG 03/2023 Vent. Rate : 081 BPM Atrial Rate : 081 BPM P-R Int : 140 ms QRS Dur : 072 ms QT Int : 402 ms P-R-T Axes : 024 037 008 degrees QTc Int : 466 ms Normal sinus rhythm Normal ECG No previous ECGs available Assessment and Plan Assessment Anesthesia Assessment: Chart Reviewed Documented by User: Belia Leon MD 09/21/23 07:34 [facility] Past Medical History Medical History Acid reflux History of PCOS Family History Family History Mother Asthma Father No problems noted. Sister No problems noted. Sister PCOS (polycystic ovarian syndrome) Sister Epilepsy Sister Diabetes Son Autism Son Autism Son No problems noted. 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 If so, by whom?: No Are you DNR?: No Advance Directives: No Advance Directives Information Provided: Yes Advance Directives on File: No Recently lost weight without trying: No Nutrition Risks: No Nutritional Risk Patient : No FDLMP: unknown : No Poor oral hygiene: No Meds Allergies Allergy/AdvReac Type Severity Reaction Status Date / Time No Known Allergies Allergy Verified 09/14/23 14:43 Exam Airway Mallampati Class: II TM Dist: >3cm Neck ROM: Full Loose/Missing/Broken Teeth: No Heart: RRR Lungs: CTA Assessment and Plan Assessment Anesthesia Assessment: Anesthesia Plan Discussed Final Anesthetic Review NPO: Yes ASA Class: III Final Preanesthetic Review: Meds/Allgs Chart Reviewed, Consent Obtained/Reviewed and Anes Risks/Benef Reviewed Patient Risk: Intermediate Procedure Risk: Intermediate Anesthetic Plan Anesthetic Plan: GA Disposition: Standard PACU
--- NOTE | 2023-09-20 17:25 | MHC.SHP ---
Pre-Procedural Eval Section A Date of Service: 09/20/23 The patient is an INPATIENT: Yes The History & Physical has been completed within 30 days and I have reviewed it.: Yes Section B Chief Complaint: Morbid (severe) obesity due to excess calories Allergies: Allergies Allergy/AdvReac Type Severity Reaction Status Date / Time No Known Allergies Allergy Verified 09/14/23 14:43 Plan I have reviewed the history and physical and performed a pertinent physical examination on my patient. No changes have occurred unless specified. Time Spent With Patient Time: Total time managing care of this patient today ____ minutes.
[2023-09-21] VITALS (14 sets, daily range): BP systolic 117–141; BP diastolic 72–87; PULSE 64–97; RESP 9–18; TEMP 36.2–36.8; O2SAT 96–100; BMI 39.4
[2023-09-21 06:23] LABS: UPreg QC Valid YES; Urine Pregnancy NEGATIVE (NEGATIVE)
--- NOTE | 2023-09-21 06:31 | P.OP_ITS ---
Operative Note Operative Note Date of Service: 09/21/23 Narrative: Preop diagnosis: [Obesity] Postop diagnosis: [Same, no evidence of hiatal hernia] Procedure: [Laparoscopic sleeve gastrectomy, gastropexy, intraoperative upper endoscopy] Surgeon: Bassem Thomas MD, [facility], [facility] Assist: [Grabiel Cortes PA-C] Anesthesia: [GET, Local: Marcaine, 0.5% plain] Estimated blood loss: [10cc] Specimen: [Portion of stomach with fundus] Intraoperative findings: [No evidence of hiatal hernia, grossly normal liver (slightly enlarged and fatty but with no other gross finding) and grossly normal stomach] Indications: [The patient is a 28-year-old woman with obesity refractory to medical management who presented to the surgical weight loss program in March, at a weight of 258 lb with a BMI of 45.7. She had attempted multiple medical weight loss efforts which failed and after being provided with options, was interested in a laparoscopic sleeve gastrectomy. Education regarding diet and exercise was provided in the importance of postoperative compliance with the meal plan and exercise to optimize surgical weight loss was reviewed and after the patient demonstrated appropriate weight loss preoperatively, options again were discussed and the patient wanted to proceed with a laparoscopic or open sleeve gastrectomy, possible hiatal hernia repair, intraoperative upper endoscopy and possible ventral hernia repair. I reviewed the inherent risks of this procedure which include, but are not limited to: Bleeding that could require another operation or blood transfusion; the inherent risks of transfusion reaction infectious disease from blood transfusions; the risk of staple line leaks that could cause sepsis, multi-system organ failure and ; the risk of mesenteric or deep vein thrombosis of the lower extremities that could cause a fatal pulmonary embolism was reviewed; the risk of GERD that could require conversion to gastric bypass was discussed; the risk of recurrent hiatal hernia, especially in the setting of weight regain was reviewed. The risk of weight regain if maladaptive eating and sedentary behavior continue was discussed. The importance of proper diet and increased activity to augment surgical weight loss and the fact that no operation would result in weight loss of poor dietary decisions and sedentary behavior are resumed were discussed at length and apparently understood; she declined a 2nd opinion, interpretive services and stated that she wanted to proceed.] Procedure: [The patient was identified in the preoperative holding area by myself and again in the operating suite 6 by myself and the OR team. Patient was placed supine on the operating table. Safety straps were utilized and a footboard utilized. The patient was induced in general endotracheal anesthesia administered with excellent effect. An appropriate time-out was performed. The patient's abdomen was then widely prepped and draped in the usual manner for surgery using chlorprep. Antibiotics per protocol were administered by Anesthesia. After infiltrating preemptive local in the skin and subcutaneous tissues in the left upper quadrant, a stab incision was made sharply in the left subcostal abdomen and the Veress needle inserted without incident. An appropriate drop test was performed then a pneumoperitoneum of 15 mmHg was obtained using carbon dioxide. Opening pressures were 9 mmHg. Next, a 5 mm 0 degree scope over a 5 mm Optiview trocar was used to access the abdomen via the epigastric incision in the midline. Once the abdomen was entered, the the trocar obturator was removed and the laparoscope was used to confirm there was no injury from the Veress needle nor trocar insertion injury to the bowel or mesentery, then the scope was switched to a 5 mm 45 degree laparoscope. Next, using preemptive local, additional 5 mm trocars were placed under direct laparoscopic vision on the patient's left abdomen, then right and the 5 mm midline trocar upsized to a 12 mm to accommodate the stapler. The patient was then positioned in reverse Trendelenburg and the liver retractor deployed through the right lateral 5 mm trocar and secured. A 40 British ViSiGi bougie was inserted by Anesthesia per os and advanced to the stomach to decompress. It was then withdrawn to the GE junction all under direct laparoscopic vision. Dissection was begun along the greater curvature using the 5 mm [place] LigaSure for hemostasis and continued to the left rosalva of the diaphragm. Dissection was then carried towards the pylorus to 3-4 cm from the pylorus and retro gastric adhesions lysed. The gastroesophageal fat pad was carefully mobilized taking care to avoid injury to the esophagus and stomach and dissection carried towards the short gastrics taking care to avoid injury to the spleen and splenic artery. The diaphragmatic hiatus was carefully examined for a hernia, and no apparent hernia was appreciated. Next, the 40 Fr ViSiGi bougie was advanced by anesthesia under direct vision and laparoscopic guidance and positioned in the antrum approximately 3 cm from the pylorus using laparoscopic graspers to serve as a guide for a stapled sleeve gastrectomy. Stapling was performed with [employer] power stapler Endo-AILEEN stapler with a purple 45 and 60 loads as needed to keep the sleeve morphology uniform. The bougie served as a guide to maintain the same sleeve caliber to avoid stricture & sleeve distortion. The 10 mm clip electronic coils supervisor was used to apply additional clips to the staple line. Care was taken to be sure that the sleeve laid flat and was without stricture. Once the sleeve was complete, the portion of stomach was placed in the lower abdomen to be sent for removal and permanent section. The staple line, gastrocolic omentum, spleen and short gastric areas were all inspected for hemostasis which was found to be good. The bougie was withdrawn under laparoscopic vision used to suction the esophagus and hypopharynx and then discarded. After inspecting again for hemostasis, a gastropexy was performed using 2-0 Polysorb suture to secure the sleeve gastrectomy to the gastrocolic omentum with intracorporeal suturing technique. Next, I broke scrub perform an on-table upper endoscopy to assess the sleeve and the esophagus and stomach. The patient was returned to neutral position and the Olympus 160 gastroscope was advanced per os taking care to preserve the endotracheal tube. The esophagus was intubated without incident. Minimal air was insufflated and the scope advanced into the newly formed sleeve. The staple line was inspected for hemostasis and the morphology of the sleeve appeared straight with a uniform diameter. Intraoperatively, there was no evidence of staple line leak seen during laparoscopy as air was insufflated via endoscope. The scope was then used to aspirate the air from the sleeve withdrawn and removed. I then rescrubbed to return to the operative field and again inspected the field for hemostasis. After final assessment for hemostasis, the patient was returned to neutral position, a Crissy used to withdraw the resected gastric specimen which was sent for permanent section. The fascia of the 12 mm midline was closed using an 0 Polysorb figure of 8 on a suture passer under direct l aparoscopic vision. The abdomen was then deflated and all trocars removed. The suture was then tied and the skin closed with 4-0 Monocryl subcuticular sutures. The abdomen was then washed and dried, benzoin and Steri-Strips applied followed by Tegaderms. The patient tolerated the procedure well was then extubated the recover in stable condition. All sponge needle and instrument counts were correct x2. At the patient's request, I contacted Lazara Berger at [phone] to review the operation, perioperative and postoperative plan. A brief message saying that surgery went well was left as no in answered.. ]
[2023-09-21] MEDS: Aprepitant 32 MG/4.4 ML VIAL IVPUSH (07:02)
[2023-09-21] MEDS: Lactated Ringers 1,000 ML 150 ML IVCONT (07:02)
--- NOTE | 2023-09-21 07:07 | PHA.MEDREC ---
Pharmacy Consult ? Medication Reconciliation Pharmacy has REVIEWED the medication reconciliation DONE BY RN.
[2023-09-21] MEDS: ceFAZolin Sodium/Dextrose,Iso 2 GM/50 ML PIGGYBACK IV ×2 (07:55→13:39)
[2023-09-21] MEDS: Acetaminophen 1,000 MG/100 ML PIGGYBACK 400 MG IV (10:00)
--- NOTE | 2023-09-21 10:35 | PM.DS ---
DS: Providers Provider Date of Service: 09/22/23 Date of admission: 09/21/23 06:14 Primary care physician: Unknown Physician DS: Summary Hospital Course Hospital Course: ADMITTING DIAGNOSIS: obesity, ? DISCHARGE DIAGNOSIS: same, s/p laparoscopic sleeve gastrectomy ? PAST SURGICAL HISTORY: foot surgery ? PROCEDURE: upper endoscopy, laparoscopic sleeve gastrectomy ? DISCHARGE SUMMARY: ? History of Present Illness: ? The patient is a?28 year-old woman with a BMI of?45.7 kg/m2 and associated co-morbidities as described above. The patient had extensive work-up,lost?30.8 lbs preoperatively and was electively scheduled for laparoscopic, possible open sleeve gastrectomy and gastropexy. Risks and complications of the surgery were discussed with the patient in advance, particularly the possibility of , pulmonary embolism, anastomotic leak, bleeding, bowel injury, GERD, cardiac, renal or pulmonary complications. The patient understood all the risks and was in agreement with the surgical plan. ? Hospital Course: ? The patient underwent an uneventful laparoscopic sleeve gastrectomy with gastropexy on the day of admission. Postoperatively, the patient was transferred to the surgical floor. The patient received IV Acetaminophen and IV dilaudid for pain control. Patient was started on bariatric phase 1 diet POD #0. On postoperative day one, the patient was feeling well without nausea, vomiting, fevers, or tachycardia. The patient had some mild incisional pain and the abdomen was soft. ? On the morning of postoperative day one, the patient was continued on 1 ounce of water or ice every half hour. During the day, the patient did fairly well, having some incisional pain, but able to ambulate adequately and to tolerate liquids well. ? Since the patient is doing well, we decided that the patient was ready to be discharged. The patient was given instructions to follow-up with me next week and to call my office for any fever over 101, persistent abdominal pain, nausea, vomiting, GERD, symptoms of DVT such as calf tenderness, or leg swelling, or pulmonary embolism such as chest pain or shortness of breath. The patient was also instructed to drink 40-60 ounces of liquids per day using the 1-ounce cups. The patient had been given prescriptions for Tylenol for pain, Zofran prn for nausea, and pantoprazole and carafate previously. The patient was encouraged to ambulate and use the incentive spirometer. The patient was allowed to shower, but no baths, and encouraged to stay active at home. All of these instructions were given to the patient personally. All questions were answered and the patient understood all instructions, the instructions were also given to the patient in print. Time Attestation Discharge coordination time: Less than 30 minutes Quality: Safe Use of Opioids Does Pt have an Active Cancer Diagnosis on the Problem List?: No Quality: Stroke Does the patient have a stroke diagnosis?: No Physical Exam Vital Signs: Vital Signs: Last Vital Signs Temp 97.4 F 09/21/23 06:33 Pulse 96 09/21/23 06:33 Resp 16 09/21/23 06:33 BP 117/73 09/21/23 06:33 Pulse Ox 98 09/21/23 06:33 O2 Del Method Room Air 09/21/23 06:33 BMI result Body Mass Index 39.4 DS: Data Data Completed and Pending Pending studies at discharge: Pending at discharge 09/21/23 10:18 Surgical [PTH] Routine Labs on day of discharge: Laboratory Results - last 24 hr 09/21/23 06:14 Urine Test NEGATIVE Discharge Plan Discharge Anticipated Discharge Date/Time: 09/22/23 10:00 Patient Disposition: Home, Self-Care Discharge Diagnosis: s/p laparoscopic sleeve gastrectomy Referrals: Physician,Unknown J [Physician] - 1 Week Discharge Medications: Continued ondansetron HCl 4 mg tablet 4 mg PO Q6H PRN (Reason: nausea and vomiting) Qty: 20 0RF pantoprazole 40 mg tablet,delayed release (DR/EC) 40 mg PO QAM 30 Days Qty: 30 2RF sucralfate 100 mg/mL suspension 10 ml PO BID 30 Days Qty: 600 2RF acetaminophen 500 mg/15 mL liquid 500 mg PO Q6H PRN (Reason: fever or pain) Qty: 237 2RF Discontinued cholecalciferol (vitamin D3) 50 mcg (2,000 unit) capsule 50 mcg PO DAILY Qty: 90 3RF Discharge Orders: Discharge Order (Routine); Ordered 09/22/23 Ordered By: Bassem Thomas Diet: bariatric diet Activity on Discharge: No heavy lifting Stand Alone Forms: Patient Portal Discharge page Care Plan Goals: weight loss Health Concerns: obesity Plan of Treatment: No tub baths, sex or returning to work until discussed at first post op appointment. No exercise, alcohol, tobacco or illegal drug use. Continue to use incentive spirometer hourly while awake. Walk in home for 5- 10 minutes every 2 hours during the first week. Follow all instructions in the bariatric handbook and call with any questions.Discharge Instructions 1. Please call your doctor or come back to the emergency room should any new symptoms arise. 2. You will receive a courtesy call from [facility] 24-48 hours after discharge. 3. Activity: abstain from alcohol, practice limited stair climbing, no bending, no driving, no exercise, no illicit substances, no lifting, no sex, no tub bath, no work. 4. Diet: continue as discussed with Dr. Thomas. 5. Dressing Change/Wound Care: Your incision is covered by clear bandages and guaze underneath. If the area is tender, you may apply an ice pack for short intervals (no more than 20 minutes on, followed by at least 20 minutes off). Do not apply heat. Do not use creams, lotions, or topical antibiotics unless instructed to do so by your surgeon. These can cause infection or allergic reaction. 6. Call your doctor if: - Your temperature exceeds 101.5 F - You experience excessive pain or swelling - You have an unexpected reaction to medication - You have excessive bleeding - You experience continued vomiting/nausea - Your incision begins to separate - Your incision shows signs of infection such as increased redness, swelling, excessive pain, heat, or drainage (light blood or clear fluid is normal) 7. General instructions: No lifting greater than 5 lbs for 1 week and not more than 20lbs the next 3?weeks. No driving until seen at the office in 5-7 days after surgery. If you do not move your bowels in the next 2 days, please tell?Dr. Thomas. Please walk around your home every hour or two to prevent blood clots from forming in your legs. You do not need to wake from sleeping to walk. Please sleep in a bed or couch to prevent kinking at the hips and knees. Please take your incentive spirometer (your lung supervisor ship maintenance services) home with you and use it for the next few days to prevent pneumonia. You may shower, no hot tubs, baths or swimming pools.?Please follow the post op diet instructions you are?given by Dr Thomas? and text me daily at 5-6pm for an update.?If you have any issues or concerns or questions please communicate this to him via text.? The Celebrate shakes have all of the bariatric vitamins you need if you consume these shakes. If you are drinking other protein shakes, you will need to purchase the Celebrate multivitamins and calcium that are available in the hospital gift shop on the first floor of the main hospital.??Do not take anything without first discussing with Dr Thomas. Please make sure you are consuming at least 40 ounces of fluids per day starting the?day AFTER your discharge from the hospital. Always drink 1-2 ml per minute using the 5ml?syringe. If you drink faster you may experience?bloating,?gas pain, burping, nausea or heartburn. In that case please slow down your pace and use the syringe to?understand better the?proper?pace and volume of drinking. Do not hesitate to contact the office with any questions at . The patient's medical history has been reviewed and they are considered low risk for post op DVT and therefore DVT prophylaxis is not considered necessary. Travel after surgery was reviewed. The patient has not disclosed any travel plans during the first 30 days after surgery and they have been advised that within the first 30 days after surgery any bus, plane, train or car travel over 2 hours in duration is contraindicated due to the possibility of developing blood clots from immobility. Any travel, needs to include periods of ambulation of 10 minutes in duration every 2 hours.? The patient was instructed to discuss any plans for travel during this period with their bariatric surgeon. Assessment: stable s/p laparoscopic sleeve gastrectomy Discharge Date/Time: 09/22/23 10:13
[2023-09-21 11:50] LABS: Hematocrit 38.6 % (37.0-47.0); Hemoglobin 12.3 g/dl (12.0-16.0)
[2023-09-21 11:53] LABS: Anion Gap 20 (12-20); Blood Urea Nitrogen 7 mg/dL (9-16); Calcium 8.5 mg/dL (8.4-10.2); Carbon Dioxide 16 mmol/L (22-29); Chloride 105 mmol/L (96-108); Creatinine Clr Calc Pharmacy 128.3; Estimated Glomerular Filt Rate > 60; Glucose Random 128 mg/dL (60-115); Potassium 3.8 mmol/L (3.3-5.1); Sodium 137 mmol/L (135-145)
[2023-09-21] MEDS: HYDROmorphone HCl 0.5 MG/0.5 ML SYRINGE 0.25 MG IVPUSH ×3 (12:20→22:06)
--- NOTE | 2023-09-21 12:36 | P.PNGS_ITS ---
Subjective Subjective Date of Service: 09/21/23 Patient reports: no new complaints, still having pain and nausea Interval history: The patient is seen postop and 384 on [place] 3. She is still somewhat groggy and has some nausea but denies any vomiting. She is just starting sips of water and has not been out of bed yet due to her grogginess. She notes some pain but that it is adequately controlled and denies any chest pain or difficulty breathing. Physical Exam 2 Vital Signs: Vital Signs: Last Vital Signs Temp 98.2 F 09/21/23 10:30 Pulse 93 09/21/23 12:00 Resp 16 09/21/23 12:20 BP 125/72 09/21/23 12:20 Pulse Ox 98 09/21/23 12:20 O2 Del Method Nasal Cannula wit h Capnography 09/21/23 12:20 O2 Flow Rate 2 09/21/23 12:20 BMI result Body Mass Index 39.4 Most recent pulse is 64 Patient is in good spirits She is having no respiratory distress and has appropriate incisional pain with the binder in place Objective Data Active Medications Albuterol Sulfate (Albuterol Sulfate (0.083%) 2.5 Mg/3 Ml Vial.Neb) 2.5 mg INHALE ONCE PRN PRN Reason: Wheezing Fentanyl (Fentanyl Citrate/Pf 100 Mcg/2 Ml Vial) 25 mcg IVPUSH Q5M PRN; Protocol PRN Reason: Pain, Moderate(Pain Scale 4-6) Hydromorphone HCl (Hydromorphone Hcl 0.5 Mg/0.5 Ml Syringe) 0.25 mg IVPUSH Q5M PRN; Protocol PRN Reason: Pain, Severe (Pain Scale 7-10) Last Admin: 09/21/23 12:20 Dose: 0.25 mg Documented By: AIMEE Lactated Ringer's (Lr) 1,000 mls @ 150 mls/hr IVCONT .Q6H40M ZENIA Last Admin: 09/21/23 07:02 Dose: 150 mls/hr Documented By: NEHA Promethazine HCl 6.25 mg/ (Sodium Chloride) 50.25 mls @ 201 mls/hr IV ONCE PRN PRN Reason: Nausea and Vomiting Ondansetron HCl (Ondansetron Hcl 4 Mg/2 Ml Vial) 4 mg IVPUSH ONCE PRN PRN Reason: Nausea and Vomiting Oxycodone HCl (Oxycodone Hcl Immed Release 5 Mg Tablet) 5 mg PO ONCE PRN PRN Reason: Pain, Severe (Pain Scale 7-10) Labs 09/21/23 11:30 09/21/23 11:30 Labs: Laboratory Results - last 24 hr 09/21/23 09/21/23 06:14 11:30 Anion Gap 20 Estim Creat Clear Calc 128.3 Estimated GFR > 60 Random Glucose 128 H Calcium 8.5 D Urine Test NEGATIVE Procedures Date of Service Date of Service: 09/21/23 Progress Note: A&P Assessment and plan (1) S/P laparoscopic sleeve gastrectomy: Status: Acute (2) Class 3 obesity: Status: Acute (3) Vitamin D deficiency: Status: Acute Plan The importance of beginning sips when her nausea settles down was discussed. Patient will get out of bed with nurses help when she is more awake. See orders. Patient briefed of the operation her questions seemed satisfactorily answered. Time Spent With Patient Time: Total time managing care of this patient today ____ minutes. Quality Stroke Does the patient have a stroke diagnosis?: No VTE Prior VTE?: No VTE Risk Level:: Surgical - moderate VTE Device Contraindication: N/A - Device Ordered VTE Drug Contraindication: Treatment Not Indicated
[2023-09-21] MEDS: Lactated Ringers 1,000 ML 100 ML IVCONT ×2 (12:54→21:53)
[2023-09-21] MEDS: ondansetron HCL 4 MG/2 ML VIAL IVPUSH (16:02)
[2023-09-21] MEDS: Acetaminophen 1,000 MG/100 ML PIGGYBACK 16.7 MG IV ×2 (16:03→21:53)
[2023-09-21] MEDS: Famotidine/PF 20 MG/2 ML VIAL IVPUSH (20:42)
[2023-09-22 04:00] VITALS: BP 140/87; PULSE 81; RESP 16; TEMP 36.1; O2SAT 98
[2023-09-22] MEDS: Acetaminophen 1,000 MG/100 ML PIGGYBACK 16.7 MG IV (04:04)
--- NOTE | 2023-09-22 06:24 | P.PNGS_ITS ---
Subjective Subjective Date of Service: 09/22/23 Patient reports: no new complaints, feels better and tolerating liquids well Interval history: Patient is postop day 1 status post sleeve gastrectomy. She reports she is doing very well, been up and walked and meeting hydration goals. Labs were drawn but not reported as of this note. She denies any GERD, regurgitation, odynophagia, dysphagia, chest pain, difficulty breathing or shortness of breath. She is anxious to go home Physical Exam 2 Vital Signs: Vital Signs: Last Vital Signs Temp 97.0 F 09/22/23 04:00 Pulse 81 09/22/23 04:00 Resp 16 09/22/23 04:00 BP 140/87 H 09/22/23 04:00 Pulse Ox 98 09/22/23 04:00 O2 Del Method Room Air 09/22/23 04:00 O2 Flow Rate 2 09/21/23 14:36 BMI result Body Mass Index 39.4 On exam she is in good spirits She is in no acute distress She is having no respiratory difficulty Abdominal binder is intact with the appropriate incisional tenderness and no peritoneal sign Objective Data Active Medications Albuterol Sulfate (Albuterol Sulfate (0.083%) 2.5 Mg/3 Ml Vial.Neb) 2.5 mg INHALE ONCE PRN PRN Reason: Wheezing Famotidine (Famotidine/Pf 20 Mg/2 Ml Vial) 20 mg IVPUSH BID ZENIA Last Admin: 09/21/23 20:42 Dose: 20 mg Documented By: CASTILTrina Fentanyl (Fentanyl Citrate/Pf 100 Mcg/2 Ml Vial) 25 mcg IVPUSH Q5M PRN; Protocol PRN Reason: Pain, Moderate(Pain Scale 4-6) Hydromorphone HCl (Hydromorphone Hcl 0.5 Mg/0.5 Ml Syringe) 0.25 mg IVPUSH Q5M PRN; Protocol PRN Reason: Pain, Severe (Pain Scale 7-10) Last Admin: 09/21/23 12:20 Dose: 0.25 mg Documented By: AIMEE Hydromorphone HCl (Hydromorphone Hcl 0.5 Mg/0.5 Ml Syringe) 0.25 mg IVPUSH Q4H PRN; Protocol PRN Reason: Pain, Moderate(Pain Scale 4-6) Last Admin: 09/21/23 22:06 Dose: 0.25 mg Documented By: BOBBY Lactated Ringer's (Lr) 1,000 mls @ 150 mls/hr IVCONT .Q6H40M [facility] Last Admin: 09/22/23 04:06 Dose: Not Given Documented By: BOBBY Non-Admin Reason: IV Running Promethazine HCl 6.25 mg/ (Sodium Chloride) 50.25 mls @ 201 mls/hr IV ONCE PRN PRN Reason: Nausea and Vomiting Lactated Ringer's (Lr) 1,000 mls @ 100 mls/hr IVCONT .Q10H [facility] Last Admin: 09/21/23 21:53 Dose: 100 mls/hr Documented By: BOBBY Acetaminophen (Ofirmev) 1,000 mg in 100 mls @ 16.7 mls/hr IV .Q6H [facility] Last Admin: 09/22/23 04:04 Dose: 16.7 mls/hr Documented By: BOBBY Metoclopramide HCl (Metoclopramide Hcl 10 Mg/2 Ml Vial) 10 mg IVPUSH Q6H PRN PRN Reason: Nausea Ondansetron HCl (Ondansetron Hcl 4 Mg/2 Ml Vial) 4 mg IVPUSH ONCE PRN PRN Reason: Nausea and Vomiting Ondansetron HCl (Ondansetron Hcl 4 Mg/2 Ml Vial) 4 mg IVPUSH Q8H PRN PRN Reason: Nausea Last Admin: 09/21/23 16:02 Dose: 4 mg Documented By: JASON Oxycodone HCl (Oxycodone Hcl Immed Release 5 Mg Tablet) 5 mg PO ONCE PRN PRN Reason: Pain, Severe (Pain Scale 7-10) Sodium Chloride (0.9 % Sodium Chloride Flush 3 Ml Syringe) 3 ml IVFLUSH QSHIFT [facility] Last Admin: 09/22/23 00:07 Dose: Not Given Documented By: BOBBY Non-Admin Reason: IV Running Labs 09/21/23 11:30 09/21/23 11:30 Labs: Laboratory Results - last 24 hr 09/21/23 11:30 Anion Gap 20 Estim Creat Clear Calc 128.3 Estimated GFR > 60 Random Glucose 128 H Calcium 8.5 D Labs from today, 7 are drawn and pending Procedures Date of Service Date of Service: 09/22/23 Progress Note: A&P Assessment and plan (1) S/P laparoscopic sleeve gastrectomy: Status: Acute (2) Class 3 obesity: Status: Acute Plan Instructions regarding diet and activity reviewed and apparently understood. Patient has written instructions regarding advancing her postoperative diet, follow-up appointment with me next week. Patient has my cell phone for text/contact as well as the PAs. Plan for discharge later assuming labs are stable/appropriate. Time Spent With Patient Time: Total time managing care of this patient today ____ minutes. Quality Stroke Does the patient have a stroke diagnosis?: No VTE Prior VTE?: No VTE Risk Level:: Surgical - moderate VTE Device Contraindication: N/A - Device Ordered VTE Drug Contraindication: Treatment Not Indicated
[2023-09-22 07:19] VITALS: BP 124/70; PULSE 76; RESP 16; TEMP 36.3; O2SAT 99
[2023-09-22] MEDS: Lactated Ringers 1,000 ML 100 ML IVCONT (07:19)
[2023-09-22 07:21] LABS: MANUAL DIFF FLAG NO
[2023-09-22 07:46] LABS: Anion Gap 17 (12-20); Basophils Percent Auto 0.1 % (0-2); Blood Urea Nitrogen 5 mg/dL (9-16); Calcium 8.6 mg/dL (8.4-10.2); Carbon Dioxide 19 mmol/L (22-29); Chloride 106 mmol/L (96-108); Creatinine Clr Calc Pharmacy 115.8; Estimated Glomerular Filt Rate > 60; Glucose Random 89 mg/dL (60-115); Hematocrit 35.2 % (37.0-47.0); Hemoglobin 11.4 g/dl (12.0-16.0); Imm Gran Abs Auto 0.04 X10*3/uL (0.00-0.03); Imm Gran Pct Auto 0.4 % (0.0-0.4); Lymphocytes Absolute Auto 0.9 X10*3/uL (1.2-4.9); Lymphocytes Percent Auto 8.6 % (20-40); Mean Corpuscular HGB Conc 32.4 g/dl (31.0-35.0); Mean Corpuscular Hemoglobin 26.2 pg (27.0-33.0); Mean Corpuscular Volume 80.9 fL (80.0-98.0); Mean Platelet Volume 12.5 fL (9.4-12.3); Monocytes Absolute Auto 0.8 X10*3/uL (0.1-1.2); Monocytes Percent Auto 7.5 % (2-11); Neutrophils Absolute Auto 8.5 x10*3/uL (2.0-8.3); Neutrophils Percent Auto 83.4 % (45-73); Platelet Count 289 X10*3/uL (160-400); Potassium 4.1 mmol/L (3.3-5.1); Red Blood Count 4.35 X10*6/uL (4.20-5.50); Red Cell Distribution Width 14.6 % (11.0-16.0); Sodium 138 mmol/L (135-145); White Blood Count 10.2 X10*3/uL (4.8-10.8)
[2023-09-22] MEDS: Famotidine/PF 20 MG/2 ML VIAL IVPUSH (07:58)
--- NOTE | 2023-09-22 09:07 | MHC.CM.PN ---
Addendum entered by Temi Washburn 09/22/23 09:37: Patient is discharged today to home self care. Transport home provided by family. Original Note: Female 28 S/P LSG She lives by herself. She is independent with all functional mobility. PCP updated, Julita Hubbard. DP home self care. Patient has arranged for her mother to provide transportation home.
--- NOTE | 2023-09-22 13:44 | HO.POSTANES ---
Post Anesthesia Evaluation Post Anesthesia Evaluation Date of Service: 09/22/23 Vital Signs: Vital Signs Temp Pulse Resp BP Pulse Ox O2 Del Method 09/22/23 07:19 97.4 F 76 16 124/70 99 Room Air 09/22/23 04:00 97.0 F 81 16 140/87 H 98 Room Air Anesthesia: General Endotracheal-GETA Mental Status: Awake Pain Control: Satisfactory Nausea/Vomiting: None Hydration: Adequate Anesthesia-Related Issues: No Anes. Related Issues
== END 2023-09-22 10:13 | disposition home or self-care (01) | DRG 403 ==
LOC: HO.SSSA 10:40 → HO.S3 13:34
PROVIDERS: Nurse Practitioner; Physician Assistant Surgical; Admitting Provider Surgery; PCP Internal Medicine; Visit Provider Surgery
PROC: 0DB64Z3 Excision of Stomach, Percutaneous Endoscopic Approach, Vertical (ICD-10-PCS; CPT 43845; principal; 2023-09-21 07:30)
DX: E66.01 Morbid (severe) obesity due to excess calories (principal); E28.2 Polycystic ovarian syndrome; E55.9 Vitamin D deficiency, unspecified; Z68.39 Body mass index [BMI] 39.0-39.9, adult; Z79.899 Other long term (current) drug therapy
CPT/HCPCS: 36415; 80048; 81025; 85014; 85018; 85025; 86850; 86900; 86901; 88307; 88342; 99024; C1713; C9145; J0131; J0665; J0690; J1100; J1170; J2250; J2405; J2704; J3010; J7120

== ENCOUNTER → 2023-09-21 06:14 | Outpatient (BNV) | payer OTHER, SELFPAY | PROVIDERS: Admitting Provider Surgery; Visit Provider Surgery | DX: E66.01 Morbid (severe) obesity due to excess calories (principal); Z68.41 Body mass index [BMI] 40.0-44.9, adult | CPT/HCPCS: 43659; 43775; 99024 ==

== ENCOUNTER 2023-09-27 09:11 | Outpatient (AMB) | payer OTHER, SELFPAY ==
--- NOTE | 2023-09-27 09:24 | A.OFFVIS_ITS ---
Intake VS Expanded 09/27/23 09:36 BP 126/80 Blood Pressure Location Rt brachial Blood Pressure Position Sitting Pulse 101 H Pulse Source Pulse Oximeter Temp 96.9 F Temperature Source Tympanic Pulse Oximetry 96 Oxygen Delivery Method Room Air Height 5 ft 3 in Weight 216 lb 3.2 oz BMI 38.3 Body Fat % 44.2 Body Fat Mass 95.4 Fat Free Mass 120.6 Visceral Fat Rating 10.0 Body Water % 40.1 Body Water Mass 86.6 Muscle Mass/Score 114.4 Basal Metabolic Rate/Score 1,726 Intake Visit Reasons: (OV) 6 Days PO LSG 09/21/23 Allergies No Known Allergies Allergy (Verified 09/27/23 09:26) HPI HPI Comments History of Present Illness Details The patient returns to the office following laparoscopic sleeve gastrectomy without hiatal hernia repair on 09/21/2023. She reports her heaviest weight is 259 lb and entered the surgical weight loss program with a weight of 258 lb/45.7 BMI. She presents today at a weight of 216.2/BMI38.3 representing 42 lb weight loss since entering the surgical weight loss program. Since surgery, she reports she is doing well and denies any GERD, dysphagia, odynophagia, regurgitation, hematemesis, nausea or vomiting Meal patient is using fair light protein shakes, 90 g total per day. plan: Exercise: Currently walking and interested in going back to the gym. Restrictions reviewed H2O: Only obtaining 30+ oz. Goal of 50-60 oz per day review She denies any interval change to her health history or medications. [facility] Medical History Acid reflux History of PCOS Surgical History (Updated 09/26/23 @ 07:52 by Rakel Quezada [facility]) Hx of laparoscopic partial gastrectomy Hx of LASIK Hx of wisdom tooth extraction Hx of foot surgery Family History Mother Asthma Father No problems noted. Sister No problems noted. Sister PCOS (polycystic ovarian syndrome) Sister Epilepsy Sister Diabetes Son Autism Son Autism Son No problems noted. Social History Household Members: Family Housing: Apartment Are you a primary patient care to a significant other at home: Yes (3 children, mom to help post-op) Do you presently have visiting nurse or other home services: No Alcohol intake: current Alcohol intake frequency: does not drink Comment: COUNTS CORRECT Patient Tobacco Use Status: Never used Tobacco service: No Physical Exam On exam she is afebrile and nontoxic She is in good spirits She is having no respiratory distress Abdominal incisions are healing well with no evidence of cellulitis. No abdominal tenderness nor hernias are appreciated Results Reviewed Results Reviewed: Pathology from 09/21/2023 confirmed no evidence of Helicobacter and normal gastric mucosa with no atypia/dysplasia was reviewed with the patient Assessment & Plan Assessment & Plan (1) S/P laparoscopic sleeve gastrectomy: Code(s): Z98.84 - Bariatric surgery status (2) Class 3 obesity: Code(s): E66.01 - Morbid (severe) obesity due to excess calories (3) Vitamin D deficiency: Code(s): E55.9 - Vitamin D deficiency, unspecified (4) Adjustment disorder, unspecified: Code(s): F43.20 - Adjustment disorder, unspecified Plan The patient is congratulated on her weight loss since entering the program. Meal plan was reviewed. Patient will continue to work on increasing her activity with a goal of 300 kcal per exercise session, minimum of 4 days per week, continue postoperative medications as ordered, work on hydration and follow-up in 3 weeks. Follow up with Valery Duncan and Niyah Garrett is arranged. School & work notes provided Coding Level of Care Code Global (69121) Diagnoses S/P laparoscopic sleeve gastrectomy Z98.84 Class 3 obesity E66.01 Vitamin D deficiency E55.9 Adjustment disorder, unspecified F43.20
[2023-09-27 09:36] VITALS: BP 126/80; PULSE 101; TEMP 36.1; O2SAT 96; BMI 38.3
== END 2023-09-27 10:16 | disposition home or self-care (01) ==
PROVIDERS: PCP Internal Medicine; Visit Provider Surgery
DX: Z98.84 Bariatric surgery status (principal); E66.01 Morbid (severe) obesity due to excess calories; E55.9 Vitamin D deficiency, unspecified; F43.20 Adjustment disorder, unspecified
CPT/HCPCS: 99024

== ENCOUNTER → 2023-09-27 09:11 | Outpatient (BNVA) | payer OTHER, SELFPAY | PROVIDERS: PCP Internal Medicine; Visit Provider Surgery | DX: E66.01 Morbid (severe) obesity due to excess calories (principal); E55.9 Vitamin D deficiency, unspecified; F43.20 Adjustment disorder, unspecified; Z98.84 Bariatric surgery status; Z68.38 Body mass index [BMI] 38.0-38.9, adult | CPT/HCPCS: 99212 ==

== ENCOUNTER 2023-09-29 14:57 | Outpatient (AMB) | payer OTHER, SELFPAY ==
--- NOTE | 2023-09-29 14:58 | A.OFFVIS_ITS ---
Intake VS Expanded 09/29/23 15:05 BP 157/65 H Blood Pressure Location Rt brachial Blood Pressure Position Sitting Pulse 90 Pulse Source Pulse Oximeter Temp 96.5 F L Temperature Source Tympanic Pulse Oximetry 99 Oxygen Delivery Method Room Air Height 5 ft 3 in Weight 215 lb 9.6 oz BMI 38.2 Body Fat % 44.4 Body Fat Mass 95.6 Fat Free Mass 119.8 Visceral Fat Rating 10.0 Body Water % 39.9 Body Water Mass 86.0 Muscle Mass/Score 113.8 Basal Metabolic Rate/Score 1,715 Intake Visit Reasons: nausea and rash Allergies No Known Allergies Allergy (Verified 09/29/23 15:09) HPI HPI Comments History of Present Illness Details Patient is a pleasant 28-year-old female who underwent sleeve gastrectomy on 09/21 23. She was last seen in the office on 09/27/2023. She states that she developed a rash approximately 2 days postoperatively underneath her breasts and between her breasts as well as her abdomen. It has been somewhat itchy. She did make Dr. Thomas aware of this on 09/27/2023 and he had suggested to try some Aveeno moisturizer. The patient tried this without any significant success. Last night she applied her son's triamcinolone cream and she thinks it may have helped some but she is not sure. She denies any change in her laundry detergent, soap, no new perfumes or creams or lotions. She is using the [employer] shake ready to drink product which she was doing for several months prior to surgery. She additionally just started taking flintstone vitamins 1 day ago. The only new medications are pantoprazole and Carafate. No one else is sick at home and she has not tried any other oral intake of any new products. She denies any significant pain. She has about. She is tolerating 1 and half shakes per day and approximately 40 oz of water. [facility] Medical History (Updated 09/29/23 @ 15:50 by СЕРГЕЙ Alaniz) Acid reflux History of PCOS Surgical History Hx of laparoscopic partial gastrectomy Hx of LASIK Hx of wisdom tooth extraction Hx of foot surgery Family History Mother Asthma Father No problems noted. Sister No problems noted. Sister PCOS (polycystic ovarian syndrome) Sister Epilepsy Sister Diabetes Son Autism Son Autism Son No problems noted. Social History (Reviewed 09/29/23 @ 15:17 by Rakel Quezada [facility]) Household Members: Family Housing: Apartment Are you a primary prompt care rn to a significant other at home: Yes (3 children, mom to help post-op) Do you presently have visiting nurse or other home services: No Alcohol intake: current Alcohol intake frequency: does not drink Comment: COUNTS CORRECT Patient Tobacco Use Status: Never used Tobacco service: No Physical Exam Vital Signs: Last Vital Signs Temp 96.5 F L 09/29/23 15:05 Pulse 90 09/29/23 15:05 BP 157/65 H 09/29/23 15:05 Pulse Ox 99 09/29/23 15:05 Oxygen Delivery Method Room Air 09/29/23 15:05 BMI result Body Mass Index 38.2 GI Other: Incisions are clean, dry, intact. There is a slightly raised appearance to the bailey-incision that is slightly reddened. No warmth or drainage. There is a petechial rash between her breasts and her posterior trunk. Assessment & Plan Assessment & Plan (1) Dermatitis: Code(s): L30.9 - Dermatitis, unspecified Plan: Unclear etiology. Possibly pantoprazole or sucralfate. Will discontinue the pantoprazole. She was encouraged to apply Benadryl lotion 2-3 times per day sparingly. We will contact her over the weekend to see how she is feeling. She will call the office sooner with any questions, concerns or worsening symptoms. Coding Level of Care Code Global (08717) Diagnoses Dermatitis L30.9
[2023-09-29 15:05] VITALS: BP 157/65; PULSE 90; TEMP 35.8; O2SAT 99; BMI 38.2
== END 2023-09-29 15:51 | disposition home or self-care (01) ==
PROVIDERS: PCP Internal Medicine; Visit Provider Physician Assistant Surgical
DX: L30.9 Dermatitis, unspecified (principal)
CPT/HCPCS: 99024

== ENCOUNTER → 2023-09-29 14:57 | Outpatient (BNVA) | payer OTHER, SELFPAY | PROVIDERS: PCP Internal Medicine; Visit Provider Physician Assistant Surgical | DX: L30.9 Dermatitis, unspecified (principal) | CPT/HCPCS: 99212 ==

== ENCOUNTER 2023-10-06 14:34 | Outpatient (AMB) | payer OTHER, SELFPAY ==
--- NOTE | 2023-10-06 14:27 | A.OFFVIS_ITS ---
Intake Intake Visit Reasons: (TV) PO LSG 09/21/23 Educational Program Assistant Required: No Allergies No Known Allergies Allergy (Verified 09/29/23 15:09) HPI Nutrition Presentation Details LSG DOS 09/21/[address] Thomas Reason for consult elevated BMI Diet Assmnt Details Using the [email or web address] shakes Tuesday (10/02) was the last time she drank 2 shakes . Since then, has only been able to do 1.5 shakes . However yesterday did not drink any shakes. She is repulsed by them, has vomited twice (two separate days). She reports feeling OK. Is receptive to other ideas for liquid protein, but finances are a factor. states bone broth is disgusting Hydration: 40-50oz Vitamins: taking 2 flinstones, a hair, skin, nails gummy Previous weight loss methods attempted Never tried to really change eating habits. Diagnosis Nutrition problem #1 inadequate protein energy As related to (etiology) #1 inadequate oral intake As evidenced by (sign/symptom) #1 poor PO intake Monitoring/Goals Nutrition problem monitoring total energy intake, level of knowledge/skill, total PRO intake, total CHO intake, weight and oral fluids Outcome progress progressing Learning/Education Readiness to learn good Stages of change action Educational materials provided Yes Most Recent Diabetes Results: Cholesterol 170 mg/dL (<200) 09/13/23 HDL Cholesterol 32 mg/dL (>40) L 09/13/23 Triglycerides 79 mg/dL (<150) 09/13/23 Creatinine 0.82 mg/dL (0.5-1.4) 09/22/23 Blood Urea Nitrogen 5 mg/dL (9-16) L 09/22/23 Sodium 138 mmol/L (135-145) 09/22/23 Potassium 4.1 mmol/L (3.3-5.1) 09/22/23 Chloride 106 mmol/L (96-108) 09/22/23 Carbon Dioxide 19 mmol/L (22-29) L 09/22/23 Calcium 8.6 mg/dL (8.4-10.2) 09/22/23 AST 20 U/L (5-31) 09/13/23 ALT 16 U/L (0-31) 09/13/23 Total Protein 8.0 g/dL (6.5-8.0) 09/13/23 Albumin 4.5 g/dL (3.5-5.0) 09/13/23 [facility] Medical History (Updated 09/30/23 @ 00:03 by Mulugeta Fabian) Acid reflux History of PCOS Surgical History Hx of laparoscopic partial gastrectomy Hx of LASIK Hx of wisdom tooth extraction Hx of foot surgery Family History Mother Asthma Father No problems noted. Sister No problems noted. Sister PCOS (polycystic ovarian syndrome) Sister Epilepsy Sister Diabetes Son Autism Son Autism Son No problems noted. Social History Household Members: Family Housing: Apartment Are you a primary campground caretaker to a significant other at home: Yes (3 children, mom to help post-op) Do you presently have visiting nurse or other home services: No Alcohol intake: current Alcohol intake frequency: does not drink Comment: COUNTS CORRECT Patient Tobacco Use Status: Never used Tobacco service: No Assessment & Plan Assessment & Plan (1) S/P laparoscopic sleeve gastrectomy: Code(s): Z98.84 - Bariatric surgery status Plan several options given. Isopure water, celebrate corrales, gave protein water handout. Celebrate soups an option. She will try these products, and call office as needed. maintain hydration. Educated pt on diet advancement, did not advance to any food at this stage. Next steps (may consider smoothie or drinkable hebrew yogurt?) if still nothing tolerated Telehealth Telehealth Location of provider rendering services: practice address Location of patient: address on file Patient Identification confirmed using: Name, : Yes Telehealth method: voice only Patient verbally consented to treatment: Yes Patient verbally consented to billing insurance company: Yes Patient informed of any privacy concerns related to visit: Yes Minutes spent on Phone/Video with Pt.: 30 Coding Level of Care Code Nutr Indiv Subseq ([id number]) Diagnoses S/P laparoscopic sleeve gastrectomy Z98.84 Time Spent (min) 30
== END 2023-10-06 14:47 | disposition home or self-care (01) ==
LOC: HO.HBS 14:34
PROVIDERS: PCP Internal Medicine; Visit Provider Dietitian, Registered
DX: Z98.84 Bariatric surgery status (principal)

== ENCOUNTER → 2023-10-06 14:34 | Outpatient (BNVA) | payer OTHER, SELFPAY | PROVIDERS: PCP Internal Medicine; Visit Provider Dietitian, Registered | DX: Z98.84 Bariatric surgery status (principal) | CPT/HCPCS: 97803 ==

== ENCOUNTER 2023-10-12 14:56 | Outpatient (AMB) | payer OTHER, SELFPAY ==
--- NOTE | 2023-10-12 12:23 | A.OFFVIS_ITS ---
Intake VS Expanded 10/12/23 15:04 BP 130/71 Blood Pressure Location Rt brachial Blood Pressure Position Sitting Pulse 81 Pulse Source Pulse Oximeter Temp 96.1 F L Temperature Source Tympanic Pulse Oximetry 95 Oxygen Delivery Method Room Air Height 5 ft 3 in Weight 218 lb 6 oz BMI 38.7 Intake Visit Reasons: nausea post op 09/21/23 Allergies No Known Allergies Allergy (Verified 10/12/23 15:05) HPI HPI Comments History of Present Illness Details Pt is s/p LSG with DR Thomas on 09/21/23 - now 3 weeks post op. 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 Since surgery she has not been able to tolerate any of the protein supplements that she has tried. Which inclue, Celebrate 4:1, Fairlife, Celebrate water and Gatorade protein water. She has only drunk water for the last 5 days and is taking a [place] vitamin per day. Not exercising due to dizzzines, but is working FT 8 hours per day. [facility] Medical History (Updated 09/30/23 @ 00:03 by Mulugeta Fabian) Acid reflux History of PCOS Surgical History Hx of laparoscopic partial gastrectomy Hx of LASIK Hx of wisdom tooth extraction Hx of foot surgery Family History Mother Asthma Father No problems noted. Sister No problems noted. Sister PCOS (polycystic ovarian syndrome) Sister Epilepsy Sister Diabetes Son Autism Son Autism Son No problems noted. Social History Household Members: Family Housing: Apartment Are you a primary weekend caregiver to a significant other at home: Yes (3 children, mom to help post-op) Do you presently have visiting nurse or other home services: No Alcohol intake: current Alcohol intake frequency: does not drink Comment: COUNTS CORRECT Patient Tobacco Use Status: Never used Tobacco service: No Physical Exam Vital Signs: Last Vital Signs Temp 96.1 F L 10/12/23 15:04 Pulse 81 10/12/23 15:04 BP 130/71 10/12/23 15:04 Pulse Ox 95 10/12/23 15:04 Oxygen Delivery Method Room Air 10/12/23 15:04 Const General: cooperative, healthy appearing, comfortable and no acute distress GI Inspection: Yes incision (all completely healed) and Yes Abdominal panniculus present Palpation (GI): Soft to palpation, nontender and no guarding Assessment & Plan Assessment & Plan (1) S/P laparoscopic sleeve gastrectomy: Code(s): Z98.84 - Bariatric surgery status Plan: Pt is 3 weeks s/p LSG and has very inadequate nutrition, and no exercise due to dizziness. VSS today , no signs of dehydration. She does not like the sweet shakes, will start tonight with: 10am - 12 pm - Celebrate Rebuild unflavores with UAM or water (20 grams) 2pm - 4pm - same shake 7pm - 9pm same shake 1 bar - divided in half each day She will text me tonight to see how she tolerates the unflavored shake She will start Celebrate MVI, swallowable tabs and have with her bar each day. Once she is receiving adequate nutrition I will have her start exercising. Appt with me in office next week. Coding Level of Care Code Global (07932) Diagnoses S/P laparoscopic sleeve gastrectomy Z98.84
[2023-10-12 15:04] VITALS: BP 130/71; PULSE 81; TEMP 35.6; O2SAT 95; BMI 38.7
== END 2023-10-12 16:21 | disposition home or self-care (01) ==
PROVIDERS: PCP Internal Medicine; Visit Provider Physician Assistant
DX: E66.9 Obesity, unspecified (principal); Z68.38 Body mass index [BMI] 38.0-38.9, adult; Z90.3 Acquired absence of stomach [part of]; Z98.84 Bariatric surgery status
CPT/HCPCS: 99024

== ENCOUNTER → 2023-10-12 14:56 | Outpatient (BNVA) | payer OTHER, SELFPAY | PROVIDERS: PCP Internal Medicine; Visit Provider Physician Assistant | DX: Z98.84 Bariatric surgery status (principal) | CPT/HCPCS: 99212 ==

== ENCOUNTER 2023-10-19 14:53 | Outpatient (AMB) | payer OTHER, SELFPAY ==
--- NOTE | 2023-10-19 14:55 | MHC.OFFVISWM ---
Intake VS Expanded 10/19/23 15:01 BP 129/63 Blood Pressure Location Rt brachial Blood Pressure Position Sitting Pulse 93 Pulse Source Pulse Oximeter Temp 96.4 F L Temperature Source Tympanic Pulse Oximetry 93 Oxygen Delivery Method Room Air Height 5 ft 3 in Weight 207 lb 6.4 oz BMI 36.7 Body Fat % 42.3 Body Fat Mass 87.8 Fat Free Mass 119.4 Visceral Fat Rating 9.0 Body Water % 41.5 Body Water Mass 86.0 Muscle Mass/Score 113.6 Basal Metabolic Rate/Score 1,699 Intake Visit Reasons: (OV) PO LSG 09/21/23 Allergies No Known Allergies Allergy (Verified 10/12/23 15:05) Medication List - Last Reconciled 10/19/23 by Goldie Patrick PA-C pantoprazole 40 mg PO QAM 30 days sucralfate 10 mL PO BID 30 days HPI HPI Comments History of Present Illness Details Pt is now 5 weeks s/p LSG with Dr Thomas, [employer]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 Dizziness resolved. Meal plan:wakes at 6am 8am - 1 scrambled egg sometimes adds 1/3 oz cheese 10am - Celebrate or REady Clean bar- 15 grams, 200 calories - over 1.5 hours 12 pm - ground beef, chicken or fish - 1.5 oz with cauliflower mashed potatoes 1.5 oz 6pm - plant based chicken 8pm - bar Exercise - none yet. has stepper at home, Walking videos 1. 5 miles in 30 minutes [facility] Medical History (Updated 09/30/23 @ 00:03 by Mulugeta Fabian) Acid reflux History of PCOS Surgical History Hx of laparoscopic partial gastrectomy Hx of LASIK Hx of wisdom tooth extraction Hx of foot surgery Family History Mother Asthma Father No problems noted. Sister No problems noted. Sister PCOS (polycystic ovarian syndrome) Sister Epilepsy Sister Diabetes Son Autism Son Autism Son No problems noted. Social History Household Members: Family Housing: Apartment Are you a primary lead care manager to a significant other at home: Yes (3 children, mom to help post-op) Do you presently have visiting nurse or other home services: No Alcohol intake: current Alcohol intake frequency: does not drink Comment: COUNTS CORRECT Patient Tobacco Use Status: Never used Tobacco service: No Assessment & Plan Assessment & Plan (1) Morbid obesity: Code(s): E66.01 - Morbid (severe) obesity due to excess calories Plan: Needs 90 grams protein per day, can not get this much without protein shakes or water. She states she is ready to try a half shake again and will let me know if she can tolerate it and I will add it to her meal plan. She will also try to restart bariatric MVI. 8am - 20 gram protein bar 11 am - bar 3pm - bar 6pm - 2 oz protein -fish or chicken and 1 oz cooked vegetable (eat protein first - but stop if starts to feel full) Exercise - daily for 300 calories - combination of walking videos and stepper. Text me in 2 days to let me know what she is doing. Start texting me with weekly weights. Next appt in 2 weeks with me. Exercise - (2) S/P laparoscopic sleeve gastrectomy: Code(s): Z98.84 - Bariatric surgery status Plan: see above Coding Level of Care Code Global (50608) Diagnoses Morbid obesity E66.01 S/P laparoscopic sleeve gastrectomy Z98.84
[2023-10-19 15:01] VITALS: BP 129/63; PULSE 93; TEMP 35.8; O2SAT 93; BMI 36.7
== END 2023-10-19 15:44 | disposition home or self-care (01) ==
PROVIDERS: PCP Internal Medicine; Visit Provider Physician Assistant
DX: E66.01 Morbid (severe) obesity due to excess calories (principal); Z68.36 Body mass index [BMI] 36.0-36.9, adult; Z90.3 Acquired absence of stomach [part of]; Z98.84 Bariatric surgery status
CPT/HCPCS: 99024

== ENCOUNTER → 2023-10-19 14:53 | Outpatient (BNVA) | payer OTHER, SELFPAY | PROVIDERS: PCP Internal Medicine; Visit Provider Physician Assistant | DX: E66.01 Morbid (severe) obesity due to excess calories (principal); Z98.84 Bariatric surgery status; Z68.36 Body mass index [BMI] 36.0-36.9, adult | CPT/HCPCS: 99212 ==

== ENCOUNTER 2023-10-26 09:43 | Outpatient (AMB) | payer OTHER, SELFPAY ==
--- NOTE | 2023-10-26 09:35 | MHC.AMNUTRGE ---
Intake VS Expanded 10/26/23 09:44 Height 5 ft 3 in Weight 207 lb BMI 36.7 Intake Visit Reasons: VIDEO PO LSG 09/21/23 Area Cleaner Required: No Allergies No Known Allergies Allergy (Verified 10/12/23 15:05) HPI Nutrition Presentation Details LSG DOS 09/21/[address] Thomas Reason for consult elevated BMI Diet Assmnt Details 3 protein bars - pt requesting options for bars with more protein and more flavor variety. list provided 2oz chicken or fish and 1oz cooked veg is OK with the above Hydration: drinks 60oz water feels that she is doing better now Previous weight loss methods attempted Never tried to really change eating habits. Diagnosis Nutrition problem #1 inadequate protein energy As related to (etiology) #1 inadequate oral intake As evidenced by (sign/symptom) #1 poor PO intake Monitoring/Goals Nutrition problem monitoring total energy intake, level of knowledge/skill, total PRO intake, total CHO intake, weight and oral fluids Outcome progress progressing Learning/Education Readiness to learn good Stages of change action Educational materials provided Yes Most Recent Diabetes Results: Creatinine 0.82 mg/dL (0.5-1.4) 09/22/23 Blood Urea Nitrogen 5 mg/dL (9-16) L 09/22/23 Sodium 138 mmol/L (135-145) 09/22/23 Potassium 4.1 mmol/L (3.3-5.1) 09/22/23 Chloride 106 mmol/L (96-108) 09/22/23 Carbon Dioxide 19 mmol/L (22-29) L 09/22/23 Calcium 8.6 mg/dL (8.4-10.2) 09/22/23 [facility] Medical History (Updated 09/30/23 @ 00:03 by Mulugeta Fabain) Acid reflux History of PCOS Surgical History Hx of laparoscopic partial gastrectomy Hx of LASIK Hx of wisdom tooth extraction Hx of foot surgery Family History Mother Asthma Father No problems noted. Sister No problems noted. Sister PCOS (polycystic ovarian syndrome) Sister Epilepsy Sister Diabetes Son Autism Son Autism Son No problems noted. Social History Household Members: Family Housing: Apartment Are you a primary child care development specialist to a significant other at home: Yes (3 children, mom to help post-op) Do you presently have visiting nurse or other home services: No Alcohol intake: current Alcohol intake frequency: does not drink Comment: COUNTS CORRECT Patient Tobacco Use Status: Never used Tobacco service: No Assessment & Plan Assessment & Plan (1) Obesity (BMI 30-39.9): Code(s): E66.9 - Obesity, unspecified Plan pt will continue to follow up with Goldie and communicate as needed with office Telehealth Telehealth Location of provider rendering services: practice address Location of patient: address on file Patient Identification confirmed using: Name, : Yes Telehealth method: video Patient verbally consented to treatment: Yes Patient verbally consented to billing insurance company: Yes Patient informed of any privacy concerns related to visit: Yes Minutes spent on Phone/Video with Pt.: 20 Coding Level of Care Code Nutr Indiv Subseq (95842) Diagnoses Obesity (BMI 30-39.9) E66.9 Time Spent (min) 15
[2023-10-26 09:44] VITALS: BMI 36.7
== END 2023-10-26 09:47 | disposition home or self-care (01) ==
LOC: HO.HBS 09:43
PROVIDERS: PCP Internal Medicine; Visit Provider Dietitian, Registered
DX: E66.9 Obesity, unspecified (principal)

== ENCOUNTER → 2023-10-26 09:43 | Outpatient (BNVA) | payer OTHER, SELFPAY | PROVIDERS: PCP Internal Medicine; Visit Provider Dietitian, Registered | DX: E66.9 Obesity, unspecified (principal); Z68.36 Body mass index [BMI] 36.0-36.9, adult | CPT/HCPCS: 97803 ==

== ENCOUNTER 2023-11-07 10:58 | Outpatient (AMB) | payer OTHER, SELFPAY ==
--- NOTE | 2023-11-07 10:07 | A.OFFVIS_ITS ---
Intake VS Expanded 11/07/23 10:45 Height 5 ft 3 in Weight 203 lb BMI 36.0 Intake Visit Reasons: (video) PO LSG 09/21/23 Allergies No Known Allergies Allergy (Verified 10/12/23 15:05) Medication List - Last Reconciled 11/07/23 by Goldie Patrick PA-C [id number]-ned-lzgg-FA-vit K 45 mg iron- 800 mcg-120 mcg (Bariatric Multivitamins) caps PO sucralfate 10 mL PO BID 30 days HPI HPI Comments History of Present Illness Details Pt is now about 6 weeks s/p LSG. She had significant difficulty in the first month finding protein products that she can tolerate. Averaging 2 lbs per week. Meal plan: 8am - Pure protein bar - 21 grams 12pm - bar again 3pm - bar again 6pm -2 oz chicken/turkey and 1 oz vegeta ble. Takes Celebrate MVI with dinne, tolerated well. 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 Sister No problems noted. Sister PCOS (polycystic ovarian syndrome) Sister Epilepsy Sister Diabetes Son Autism Son Autism Son No problems noted. Social History Household Members: Family Housing: Apartment Are you a primary care connector to a significant other at home: Yes (3 children, mom to help post-op) Do you presently have visiting nurse or other home services: No Alcohol intake: current Alcohol intake frequency: does not drink Comment: COUNTS CORRECT Patient Tobacco Use Status: Never used Tobacco service: No Assessment & Plan Assessment & Plan (1) S/P laparoscopic sleeve gastrectomy: Code(s): Z98.84 - Bariatric surgery status Plan: Now 6 weeks post op LSG. Now tolerating a better meal plan. Will substitute 1 bar for a Fairlife shake to add another 9 grams protein per day Time to increase her exercise - Team [employer] Project - 30 minutes - 3 d/ week (goal of 5 d/week) , other videos 4 d/ week. Text me weights weekly to increase to 4 lbs/week. Next appt with me in 4 weeks. Telehealth Telehealth Location of provider rendering services: practice address Location of patient: address on file Patient Identification confirmed using: Name, : Yes Telehealth method: voice only Patient verbally consented to treatment: Yes Patient verbally consented to billing insurance company: Yes Patient informed of any privacy concerns related to visit: Yes Coding Level of Care Code Global (10299) Diagnoses S/P laparoscopic sleeve gastrectomy Z98.84
[2023-11-07 10:45] VITALS: BMI 36.0
== END 2023-11-07 12:12 | disposition home or self-care (01) ==
LOC: HO.HBS 10:58
PROVIDERS: PCP Internal Medicine; Visit Provider Physician Assistant
DX: E66.9 Obesity, unspecified (principal); Z68.36 Body mass index [BMI] 36.0-36.9, adult; Z90.3 Acquired absence of stomach [part of]; Z98.84 Bariatric surgery status
CPT/HCPCS: 99024

== ENCOUNTER → 2023-11-07 10:58 | Outpatient (BNVA) | payer OTHER, SELFPAY | PROVIDERS: PCP Internal Medicine; Visit Provider Physician Assistant | DX: Z98.84 Bariatric surgery status (principal) | CPT/HCPCS: 99212 ==

== ENCOUNTER 2023-12-07 10:00 | Outpatient (AMB) | payer OTHER, SELFPAY ==
--- NOTE | 2023-12-07 09:33 | A.OFFVIS_ITS ---
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 She had difficulty in the first few weeks tolerating bariatric diet, but is doing well now. She has lost 10 lbs over 4 weeks for TBWL of 64.3 lbs or 24.9%. No n/v abd pain or reflux Meal plan: 8:15 am - 2 hb eggs 11:30 - 20 gram Pure protein bar 2:30 pm- same bar 6pm - 6 forks of lean protein, 2 forks b roccoli Time to increase her exercise - Team Body Project - 30 minutes - 3 d/ week (goal of 5 d/week) , other videos 4 d/ week. [facility] Medical History (Updated 09/30/23 @ 00:03 by Mulugeta Fabian) Acid reflux History of PCOS Surgical History Hx of laparoscopic partial gastrectomy Hx of LASIK Hx of wisdom tooth extraction Hx of foot surgery Family History Mother Asthma Father No problems noted. Sister No problems noted. Sister PCOS (polycystic ovarian syndrome) Sister Epilepsy Sister Diabetes Son Autism Son Autism Son No problems noted. Social History Household Members: Family Housing: Apartment Are you a primary lead care manager to a significant other at home: Yes (3 children, mom to help post-op) Do you presently have visiting nurse or other home services: No Alcohol intake: current Alcohol intake frequency: does not drink Comment: COUNTS CORRECT Patient Tobacco Use Status: Never used Tobacco service: No Assessment & Plan Assessment & Plan (1) S/P laparoscopic sleeve gastrectomy: Code(s): Z98.84 - Bariatric surgery status Plan: Needs 80 - 85 grams protein/day. 8:15 - 2 eggs, takes bariatric MVI 11:30 - 20 gram bar 2:30 - 20 gram bar 6 pm - dinner 4 forks of protein, 2 forks vegetables Drink 20 grams protein water per day. Exercise - TBP videos with 2 lbs weights -4 d/week. Walking videos 3 days. Just bought walking pad for home use. Speed 3.5, 350 calories. Next appt with me in 4 weeks. Telehealth Telehealth Location of provider rendering services: practice address Location of patient: address on file Patient Identification confirmed using: Name, : Yes Telehealth method: video Patient verbally consented to treatment: Yes Patient verbally consented to billing insurance company: Yes Patient informed of any privacy concerns related to visit: Yes Coding Level of Care Code Global (36104) Diagnoses S/P laparoscopic sleeve gastrectomy Z98.84
[2023-12-07 09:34] VITALS: BMI 34.3
== END 2023-12-07 10:21 | disposition home or self-care (01) ==
LOC: HO.HBS 10:01
PROVIDERS: PCP Internal Medicine; Visit Provider Physician Assistant
DX: Z98.84 Bariatric surgery status (principal)
CPT/HCPCS: 99024

== ENCOUNTER → 2023-12-07 10:00 | Outpatient (BNVA) | payer OTHER, SELFPAY | PROVIDERS: PCP Internal Medicine; Visit Provider Physician Assistant | DX: Z98.84 Bariatric surgery status (principal) | CPT/HCPCS: 99212 ==

== ENCOUNTER 2024-01-04 09:30 | Outpatient (AMB) | payer OTHER, SELFPAY ==
--- NOTE | 2024-01-04 09:35 | MHC.OFFVISWM ---
Intake VS Expanded 01/04/24 09:36 Height 5 ft 3 in Weight 183 lb 4 oz BMI 32.5 Intake Visit Reasons: VIDEO PO LSG 09/21/23 Allergies No Known Allergies Allergy (Verified 10/12/23 15:05) Medication List - Last Reconciled 01/04/24 by Goldie Patrick PA-C [id number]-ugb-yvvx-FA-vit K 45 mg iron- 800 mcg-120 mcg (Bariatric Multivitamins) caps PO HPI HPI Comments History of Present Illness Details 28 yo woman now 3.5 months s/p LSG. 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 No n/v, abd pain or reflux. Meal plan: now can tolerate Fairlife shakes again, has been having a few. 8am - bar or 2 boiled eggs 11:30 am - bar (20 grams) 3pm - bar 6 PM - 4 forks protein and 2 forks veg Exercise - TBP videos M, W,F. treadmill - speed 3.5, incline 3 mostly - 350 caloires, 45 minutes [facility] Medical History (Updated 01/04/24 @ 09:46 by Goldie Patrick PA-C) Acid reflux History of PCOS Surgical History Hx of laparoscopic partial gastrectomy Hx of LASIK Hx of wisdom tooth extraction Hx of foot surgery Family History Mother Asthma Father No problems noted. Sister No problems noted. Sister PCOS (polycystic ovarian syndrome) Sister Epilepsy Sister Diabetes Son Autism Son Autism Son No problems noted. 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 Meal plan - now can have raw and cooked vegetables. Will have protein shake at 3pm instead of bar and continue 80 grams protein per day. Exercise - Continue TBP videos 3 d/week - with weights for ST. Treadmill - speed 3.5, incline 3 - 9 (3minutes), 11 calories minute. Next appt with Valery in 6 weeks. (2) S/P laparoscopic sleeve gastrectomy: Code(s): Z98.84 - Bariatric surgery status Plan see above Telehealth Telehealth Location of provider rendering services: practice address Location of patient: address on file Patient Identification confirmed using: Name, : Yes Telehealth method: video Patient verbally consented to treatment: Yes Patient verbally consented to billing insurance company: Yes Patient informed of any privacy concerns related to visit: Yes Coding Level of Care Code Tele Est Pt Level 4 (45820) Diagnoses Obesity E66.9 S/P laparoscopic sleeve gastrectomy Z98.84
[2024-01-04 09:36] VITALS: BMI 32.5
== END 2024-01-04 09:55 | disposition home or self-care (01) ==
PROVIDERS: PCP Internal Medicine; Visit Provider Physician Assistant
DX: E66.9 Obesity, unspecified (principal); Z98.84 Bariatric surgery status
CPT/HCPCS: 99214

== ENCOUNTER → 2024-01-04 09:30 | Outpatient (BNVA) | payer OTHER, SELFPAY | PROVIDERS: PCP Internal Medicine; Visit Provider Physician Assistant ==

== ENCOUNTER 2024-02-13 12:06 | Outpatient (AMB) | payer OTHER, SELFPAY ==
--- NOTE | 2024-02-13 12:03 | MHC.OFFVISWM ---
VS Expanded 02/13/24 12:09 Height 5 ft 3 in Weight 175 lb BMI 31.0 Intake Visit Reasons: (telephone) PO LSG 09/21/23 Allergies No Known Allergies Allergy (Verified 10/12/23 15:05) Medication List - Last Reconciled 02/13/24 by СЕРГЕЙ Horton inulin (Fiber Gummies) 2 grams PO DAILY [id number]-tlz-fbaw-FA-vit K 45 mg iron- 800 mcg-120 mcg (Bariatric Multivitamins) caps PO HPI Comments Details: This?is a?29?yo female who is s/p LSG 09/21/2023. Presents for 4.5 month post op visit. Weight at last visit on 01/04/2024 was 183.4 pounds with a BMI of 32.5, weight today is 175 pounds, representing a 8.4 pound weight loss with a BMI today of 31.? No complaints of nausea, emesis, abdominal pain or reflux. Reports constipation, BMs only about once a week. Present meal plan includes: 8am - bar or 2 boiled eggs 11:30 am - bar (20 grams) or yogurt 3pm - Workface shake 6 PM - 4 forks protein and 2 forks veg goal 75g protein per day takes MVI but it causes nausea no matter what time she takes it Exercise routine includes: TBP videos 3 d/week - with weights for ST. Treadmill - speed 3.5, incline 3 - 9 (3minutes), 11 calories minute. [facility] Medical History (Updated 01/04/24 @ 09:46 by Goldie Patrick PA-C) Acid reflux History of PCOS Surgical History Hx of laparoscopic partial gastrectomy Hx of LASIK Hx of wisdom tooth extraction Hx of foot surgery Family History Mother Asthma Father No problems noted. Sister No problems noted. Sister PCOS (polycystic ovarian syndrome) Sister Epilepsy Sister Diabetes Son Autism Son Autism Son No problems noted. Social History Household Members: Family Housing: Apartment Are you a primary manager urgent care to a significant other at home: Yes (3 children, mom to help post-op) Do you presently have visiting nurse or other home services: No Alcohol intake: current Alcohol intake frequency: does not drink Comment: COUNTS CORRECT Patient Tobacco Use Status: Never used Tobacco service: No Physical Exam Vital Signs: BMI result Body Mass Index 31.0 Telehealth Telehealth Telehealth Platform: Telephone Location of provider rendering services: other Location of patient: address on file Patient Identification confirmed using: Name, : Yes Telehealth method: voice only Patient verbally consented to treatment: Yes Patient verbally consented to billing insurance company: Yes Patient informed of any privacy concerns related to visit: Yes Minutes spent on Phone/Video with Pt.: 15 Assessment & Plan Assessment & Plan (1) Obesity: Code(s): E66.9 - Obesity, unspecified Category: Medical (2) S/P laparoscopic sleeve gastrectomy: Code(s): Z98.84 - Bariatric surgery status Category: Surgical Plan Pt to continue meal plan and exercise regimen. Senna rx for constipation, can use MoM or Miralax PRN as well. Labs ordered in anticipation of 6 month visit. RTC 6 weeks. Patient is obese and is not considered stable at this time. I spent a total of 30 minutes reviewing/updating records, examining the patient and counseling the patient on weight management as detailed above. Orders: Orders Hemoglobin A1c Today Z98.84 - Bariatric surgery status Lipid Panel Today Z.84 - Bariatric surgery status IRON PROFILE Today Z.84 - Bariatric surgery status Zinc Today Z98.84 - Bariatric surgery status C Reactive Protein Today Z98.84 - Bariatric surgery status Vitamin B1 Today Z.84 - Bariatric surgery status Ferritin Today Z98.84 - Bariatric surgery status Insulin Today Z.84 - Bariatric surgery status Complete Blood Count Auto Diff Today Z98.84 - Bariatric surgery status Comprehensive Met. Panel Today Z.84 - Bariatric surgery status Vitamin B12 and Folate Today Z98.84 - Bariatric surgery status Vitamin A Today Z98.84 - Bariatric surgery status TSH reflex Free T4 Today Z98.84 - Bariatric surgery status Vitamin D 25-OH Total Today Z98.84 - Bariatric surgery status Medications: New sennosides (senna) 8.6 mg PO DAILY 90 caps 1RF
[2024-02-13 12:09] VITALS: BMI 31.0
== END 2024-02-13 12:22 | disposition home or self-care (01) ==
LOC: HO.HBS 12:06
PROVIDERS: PCP Internal Medicine; Visit Provider Physician Assistant Surgical
DX: E66.9 Obesity, unspecified (principal); Z98.84 Bariatric surgery status
CPT/HCPCS: 99214

== ENCOUNTER → 2024-02-13 12:06 | Outpatient (BNVA) | payer OTHER, SELFPAY | PROVIDERS: PCP Internal Medicine; Visit Provider Physician Assistant Surgical ==

== ENCOUNTER 2024-03-28 07:18 | Outpatient (REF) | payer OTHER, SELFPAY ==
[2024-03-28 07:33] LABS: MANUAL DIFF FLAG NO
[2024-03-28 07:44] LABS: Basophils Percent Auto 0.4 % (0-2); Eosinophils Absolute Auto 0.1 X10*3/uL (0.0-0.4); Eosinophils Percent Auto 1.8 % (0-4); Hematocrit 36.7 % (37.0-47.0); Hemoglobin 12.4 g/dl (12.0-16.0); Imm Gran Abs Auto 0.02 X10*3/uL (0.00-0.03); Imm Gran Pct Auto 0.3 % (0.0-0.4); Lymphocytes Absolute Auto 1.3 X10*3/uL (1.2-4.9); Lymphocytes Percent Auto 18.5 % (20-40); Mean Corpuscular HGB Conc 33.8 g/dl (31.0-35.0); Mean Corpuscular Hemoglobin 28.1 pg (27.0-33.0); Mean Corpuscular Volume 83.2 fL (80.0-98.0); Mean Platelet Volume 11.4 fL (9.4-12.3); Monocytes Absolute Auto 0.4 X10*3/uL (0.1-1.2); Monocytes Percent Auto 6.5 % (2-11); Neutrophils Absolute Auto 4.9 x10*3/uL (2.0-8.3); Neutrophils Percent Auto 72.5 % (45-73); Platelet Count 251 X10*3/uL (160-400); Red Blood Count 4.41 X10*6/uL (4.20-5.50); Red Cell Distribution Width 13.5 % (11.0-16.0); White Blood Count 6.8 X10*3/uL (4.8-10.8)
[2024-03-28 07:54] LABS: Estimated Average Glucose 105 mg/dL; Hemoglobin A1c % 5.3 % (<6.0)
[2024-03-28 08:36] LABS: Alanine Aminotransferase 8 U/L (0-31); Albumin Level 4.2 g/dL (3.5-5.0); Alkaline Phosphatase 90 U/L (39-117); Anion Gap 9 (12-20); Aspartate Amino Transferase 11 U/L (5-31); Bilirubin Total 1.3 mg/dL (0.0-1.0); Blood Urea Nitrogen 10 mg/dL (9-16); C Reactive Protein 0.17 mg/dL (< or = 0.50); Calcium 9.2 mg/dL (8.4-10.2); Carbon Dioxide 26 mmol/L (22-29); Chloride 106 mmol/L (96-108); Cholesterol 162 mg/dL (<200); Estimated Glomerular Filt Rate > 60; Glucose Random 87 mg/dL (60-115); HDL Cholesterol 45 mg/dL (>40); Iron 80 mcg/dL (30-160); LDL Cholesterol Calculated 101 mg/dL (<100); Percent Iron Saturation 26 % (15-50); Potassium 3.5 mmol/L (3.3-5.1); Sodium 137 mmol/L (135-145); Total Iron Binding Capacity 309 mcg/dL (228-428); Total Protein 7.2 g/dL (6.5-8.0); Triglycerides 80 mg/dL (<150); Unsaturated Iron Binding 229 ug/dL
[2024-03-28 08:55] LABS: Ferritin 77 ng/mL (10-122); Insulin 6 uU/mL (2-29); TSH reflex Free T4 2.35 uIU/mL (0.32-4.0); Vitamin D 25-OH Total 25.8 ng/mL (>30)
[2024-03-28 08:59] LABS: Folate 6.4 ng/mL (> or = 4.0); Vitamin B12 473 pg/mL (200-900)
[2024-04-02 04:16] LABS: Vitamin A 36 mcg/dL (38-98)
[2024-04-02 16:08] LABS: Zinc 66 mcg/dL (60-130)
[2024-04-03 15:09] LABS: Vitamin B1 18 nmol/L (8-30)
== END 2024-03-28 07:19 | disposition home or self-care (01) ==
LOC: HO.LAB 07:18
PROVIDERS: PCP Internal Medicine; Visit Provider Physician Assistant Surgical
DX: Z98.84 Bariatric surgery status (principal)
CPT/HCPCS: 36415; 80053; 80061; 82306; 82607; 82728; 82746; 83036; 83525; 83540; 84425; 84443; 84590; 84630; 85025; 86140

== ENCOUNTER 2024-03-29 12:00 | Outpatient (AMB) | payer OTHER, SELFPAY ==
--- NOTE | 2024-03-29 11:59 | A.OFFVIS_ITS ---
VS Expanded 03/29/24 12:09 Height 5 ft 3 in Weight 170 lb 2 oz BMI 30.1 Intake Visit Reasons: TELEPHONE PO LSG 09/21/23 Allergies No Known Allergies Allergy (Verified 10/12/23 15:05) Medication List - Last Reconciled 03/29/24 by СЕРГЕЙ Horton cholecalciferol (vitamin D3) 50 mcg PO DAILY inulin (Fiber Gummies) 2 grams PO DAILY [id number]-vmf-cgqg-FA-vit K 45 mg iron- 800 mcg-120 mcg (Bariatric Multivitamins) caps PO sennosides (senna) 8.6 mg PO DAILY HPI Comments Details: This?is a?29?yo female who is s/p LSG 09/21/2023. Presents for 6 month post op visit. Weight at last visit on 02/13/2024 was 175 pounds with a BMI of 31, weight today is 170.2 pounds, representing a 4.8 pound weight loss with a BMI today of 30.1.? No complaints of nausea, emesis, abdominal pain or reflux. Takes meds for constipation. Present meal plan includes: 8am - bar or 2 boiled eggs 11:30 am - bar (20 grams) or yogurt 3pm - Bioptigen shake 6 PM - 4 forks protein and 2 forks veg goal 75g protein per day takes MVI but it causes nausea no matter what time she takes it sometimes will have a meal (salad with chicken) for lunch Exercise routine includes: TBP videos 3 d/week - with weights for ST. Treadmill - speed 3.5, incline 3 - 9 (3minutes), 11 calories minute. [facility] Medical History (Updated 01/04/24 @ 09:46 by Goldie Patrick PA-C) Acid reflux History of PCOS Surgical History Hx of laparoscopic partial gastrectomy Hx of LASIK Hx of wisdom tooth extraction Hx of foot surgery Family History Mother Asthma Father No problems noted. Sister No problems noted. Sister PCOS (polycystic ovarian syndrome) Sister Epilepsy Sister Diabetes Son Autism Son Autism Son No problems noted. Social History Household Members: Family Housing: Apartment Are you a primary day care worker to a significant other at home: Yes (3 children, mom to help post-op) Do you presently have visiting nurse or other home services: No Alcohol intake: current Alcohol intake frequency: does not drink Comment: COUNTS CORRECT Patient Tobacco Use Status: Never used Tobacco service: No Telehealth Telehealth Telehealth Platform: Telephone Location of provider rendering services: practice address Location of patient: address on file Patient Identification confirmed using: Name, : Yes Telehealth method: voice only Patient verbally consented to treatment: Yes Patient verbally consented to billing insurance company: Yes Patient informed of any privacy concerns related to visit: Yes Minutes spent on Phone/Video with Pt.: 12 Assessment & Plan Assessment & Plan (1) Obesity: Code(s): E66.9 - Obesity, unspecified Category: Medical (2) S/P laparoscopic sleeve gastrectomy: Code(s): Z98.84 - Bariatric surgery status Category: Surgical Plan Pt to continue same meal plan. She is satisfied with plan and exercise regimen, feels well. Labs reviewed, some vitamin levels still pending, vit D low, supplement sent. RTC 3 months. Pt will reach out via text with any concerns between appts. Patient is obese and is not considered stable at this time. I spent a total of 30 minutes reviewing/updating records, examining the patient and counseling the patient on weight management as detailed above. Medications: New cholecalciferol (vitamin D3) 50 mcg PO DAILY 90 caps 3RF
[2024-03-29 12:09] VITALS: BMI 30.1
--- OUTSIDE RECORDS SUMMARY | 2024-03-29 13:40 | XMS_ITS | Continuity of Care Document ---
Author Organization [facility] Address [address] [place] [id number] Care Team Providers Care Vehicle Dynamics Engineer Name Role Phone Suzanne Bradley NP Primary Care Physician Encounter [facility] Date(s): 09/22/21 - 10/22/21 [facility] [address] [place] [id number] Allergies, Adverse Reactions, Alerts Substance Reaction Severity Status NKA Active Medications ibuprofen 400 mg oral tablet 1 tablet = 400 mg, By Mouth, Every 4 hours, PRN for pain, # 60 tablet, 0 Refills, Maintenance, 08/26/14 18:46:52, Tablet, 1 tablet By Mouth Every 4 hours,PRN:for pain Start Date: 08/26/14 Status: Ordered Ortho Tri-Cyclen Lo oral tablet 1 tablet, By Mouth, Daily, # 28 tablet, 0 Refills, Maintenance, 08/26/14 18:47:28, Tablet, 1 tabletBy Mouth Daily Start Date: 08/26/14 Status: Ordered
== END 2024-03-29 12:30 | disposition home or self-care (01) ==
LOC: HO.HBS 13:38
PROVIDERS: PCP Internal Medicine; Visit Provider Physician Assistant Surgical
DX: E66.9 Obesity, unspecified (principal); Z98.84 Bariatric surgery status
CPT/HCPCS: 99214

== ENCOUNTER → 2024-03-29 12:00 | Outpatient (BNVA) | payer OTHER, SELFPAY | PROVIDERS: PCP Internal Medicine; Visit Provider Physician Assistant Surgical | DX: E66.9 Obesity, unspecified (principal); Z98.84 Bariatric surgery status ==

== ENCOUNTER 2024-07-02 15:41 | Outpatient (AMB) | payer OTHER, SELFPAY ==
--- NOTE | 2024-07-02 15:04 | MHC.OFFVISWM ---
Intake Visit Reasons: TELEPHONE PO LSG 09/21/23 Allergies No Known Allergies Allergy (Verified 10/12/23 15:05) Medication List - Last Reconciled 07/02/24 by СЕРГЕЙ Horton cholecalciferol (vitamin D3) 125 mcg PO DAILY inulin (Fiber Gummies) 2 grams PO DAILY rvcteannnuqq-ktf-mmca-FA-vit K 45 mg iron- 800 mcg-120 mcg (Bariatric Multivitamins) caps PO sennosides (senna) 8.6 mg PO DAILY vitamin A palmitate 10,000 units PO DAILY HPI Comments Details: This?is a?29?yo female who is s/p LSG 09/21/2023. Presents for 9 month post op visit. Weight at last visit on 03/29/2024 was 170 pounds with a BMI of 30.1, weight today is 155.2 pounds, representing a 14.8 pound weight loss with a BMI today of 27.5.? No complaints of nausea, emesis, abdominal pain or reflux, or constipation. Present meal plan includes: 8am - 2 boiled eggs 11:30 am - bar (20 grams) or yogurt or sometimes will have a meal (salad with chicken) 3pm - bar 6 PM - 4 forks protein and 2 forks veg goal 75g protein per day takes MVI but it causes nausea no matter what time she takes it sometimes doesn't have a lot of hunger, other times will feel very hungry Exercise routine includes: TBP videos 3 d/week - with weights for ST. Treadmill - speed 3.5, incline 3 - 9 (3minutes), 11 calories minute. Pt reports some issues of excess skin of upper thighs, unevenness. No chafing or rashes. [facility] Medical History (Updated 07/02/24 @ 15:16 by СЕРГЕЙ Horton) Acid reflux History of PCOS Surgical History Hx of laparoscopic partial gastrectomy Hx of LASIK Hx of wisdom tooth extraction Hx of foot surgery Family History Mother Asthma Father No problems noted. Sister No problems noted. Sister PCOS (polycystic ovarian syndrome) Sister Epilepsy Sister Diabetes Son Autism Son Autism Son No problems noted. Social History Household Members: Family Housing: Apartment Are you a primary youth care worker to a significant other at home: Yes (3 children, mom to help post-op) Do you presently have visiting nurse or other home services: No Alcohol intake: current Alcohol intake frequency: does not drink Comment: COUNTS CORRECT Patient Tobacco Use Status: Never used Tobacco service: No Telehealth Telehealth Telehealth Platform: Telephone Location of provider rendering services: other Location of patient: address on file Patient Identification confirmed using: Name, : Yes Telehealth method: voice only Patient verbally consented to treatment: Yes Patient verbally consented to billing insurance company: Yes Patient informed of any privacy concerns related to visit: Yes Minutes spent on Phone/Video with Pt.: 15 Assessment & Plan Assessment & Plan (1) Overweight: Code(s): E66.3 - Overweight Category: Medical (2) S/P laparoscopic sleeve gastrectomy: Code(s): Z98.84 - Bariatric surgery status Category: Surgical Plan Pt doing well on current meal plan, exercise regimen. Will let us know if she starts to experience issues of excess skin of upper thighs. Will try regular women's MVI in addition to vit A/D supplemented. RTC 3 months for annual. I spent a total of 30 minutes reviewing/updating records, examining the patient and counseling the patient on weight management as detailed above.
== END 2024-07-02 15:47 | disposition home or self-care (01) ==
LOC: HO.HBS 15:41
PROVIDERS: PCP Internal Medicine; Visit Provider Physician Assistant Surgical
DX: E66.3 Overweight (principal); Z98.84 Bariatric surgery status
CPT/HCPCS: 99214

== ENCOUNTER → 2024-07-02 15:41 | Outpatient (BNVA) | payer OTHER, SELFPAY | PROVIDERS: PCP Internal Medicine; Visit Provider Physician Assistant Surgical | DX: E66.3 Overweight (principal); Z98.84 Bariatric surgery status ==

== ENCOUNTER 2024-09-24 07:50 | Outpatient (REF) | payer OTHER, SELFPAY ==
[2024-09-24 08:07] LABS: MANUAL DIFF FLAG NO
[2024-09-24 09:17] LABS: Basophils Percent Auto 0.6 % (0-2); Eosinophils Absolute Auto 0.1 X10*3/uL (0.0-0.4); Hematocrit 35.4 % (37.0-47.0); Hemoglobin 11.7 g/dl (12.0-16.0); Imm Gran Abs Auto 0.02 X10*3/uL (0.00-0.03); Imm Gran Pct Auto 0.4 % (0.0-0.4); Lymphocytes Absolute Auto 1.2 X10*3/uL (1.2-4.9); Lymphocytes Percent Auto 22.4 % (20-40); Mean Corpuscular HGB Conc 33.1 g/dl (31.0-35.0); Mean Corpuscular Hemoglobin 27.9 pg (27.0-33.0); Mean Corpuscular Volume 84.5 fL (80.0-98.0); Mean Platelet Volume 11.4 fL (9.4-12.3); Monocytes Absolute Auto 0.4 X10*3/uL (0.1-1.2); Neutrophils Absolute Auto 3.5 x10*3/uL (2.0-8.3); Neutrophils Percent Auto 67.6 % (45-73); Platelet Count 246 X10*3/uL (160-400); Red Blood Count 4.19 X10*6/uL (4.20-5.50); Red Cell Distribution Width 12.8 % (11.0-16.0); White Blood Count 5.2 X10*3/uL (4.8-10.8)
[2024-09-24 09:18] LABS: Estimated Average Glucose 105 mg/dL; Hemoglobin A1C 104.1702 umol/L; Hemoglobin A1c % 5.3 % (<6.0); Total Hemoglobin (HGBA1C) 2986.3277 umol/L
[2024-09-24 09:53] LABS: Alanine Aminotransferase 10 U/L (0-31); Albumin Level 4.1 g/dL (3.5-5.0); Alkaline Phosphatase 66 U/L (39-117); Anion Gap 9 (12-20); Aspartate Amino Transferase 15 U/L (5-31); Bilirubin Total 1.2 mg/dL (0.0-1.0); Blood Urea Nitrogen 6 mg/dL (9-16); C Reactive Protein < 0.10 mg/dL (< or = 0.50); Calcium 8.9 mg/dL (8.4-10.2); Carbon Dioxide 25 mmol/L (22-29); Chloride 105 mmol/L (96-108); Cholesterol 144 mg/dL (<200); Estimated Glomerular Filt Rate > 60; Glucose Random 84 mg/dL (60-115); HDL Cholesterol 47 mg/dL (>40); Iron 130 mcg/dL (30-160); LDL Cholesterol Calculated 85 mg/dL (<100); Percent Iron Saturation 46 % (15-50); Potassium 3.4 mmol/L (3.3-5.1); Sodium 136 mmol/L (135-145); Total Iron Binding Capacity 280 mcg/dL (228-428); Triglycerides 63 mg/dL (<150); Unsaturated Iron Binding 150 ug/dL
[2024-09-24 10:10] LABS: Folate 13.2 ng/mL (> or = 4.0); Vitamin B12 595 pg/mL (200-900)
[2024-09-24 10:16] LABS: Ferritin 103 ng/mL (10-122); Insulin 5 uU/mL (2-29); TSH reflex Free T4 1.82 uIU/mL (0.32-4.0); Vitamin D 25-OH Total 35.6 ng/mL (>30)
[2024-09-28 02:58] LABS: Zinc 85 mcg/dL (60-130)
[2024-09-28 16:24] LABS: Vitamin B1 13 nmol/L (8-30)
[2024-09-29 18:43] LABS: Vitamin A 30 mcg/dL (38-98)
== END 2024-09-24 07:51 | disposition home or self-care (01) ==
LOC: HO.LAB 07:50
PROVIDERS: PCP Internal Medicine; Visit Provider Physician Assistant Surgical
DX: Z98.84 Bariatric surgery status (principal)
CPT/HCPCS: 36415; 80053; 80061; 82306; 82607; 82728; 82746; 83036; 83525; 83540; 84425; 84443; 84590; 84630; 85025; 86140

== ENCOUNTER 2024-10-01 13:54 | Outpatient (AMB) | payer OTHER, SELFPAY ==
--- NOTE | 2024-10-01 13:04 | MHC.OFFVISWM ---
VS Expanded 10/01/24 13:06 Height 5 ft 3 in Weight 153 lb BMI 27.1 Intake Visit Reasons: TELEPHONE PO LSG 09/21/23 Allergies No Known Allergies Allergy (Verified 10/12/23 15:05) Medication List - Last Reconciled 10/01/24 by СЕРГЕЙ Horton inulin (Fiber Gummies) 2 grams PO DAILY cqzdouyrypru-kmr-kmoi-FA-vit K 45 mg iron- 800 mcg-120 mcg (Bariatric Multivitamins) caps PO sennosides (senna) 8.6 mg PO DAILY HPI Comments Details: This?is a?29?yo female who is s/p LSG 09/21/2023. Presents for 1 year post op visit. Weight at last visit on 07/02/2024 was 155 pounds, 2lb weight loss Recently found out she is about 6 weeks . Due May 29. Present meal plan includes: 8am - 2 boiled eggs 11:30 am - bar (20 grams) or yogurt or sometimes will have a meal (salad with chicken) 3pm - bar 6 PM - 4 forks protein and 2 forks veg goal 75g protein per day Exercise routine includes: TBP videos 3 d/week - with weights for ST. Treadmill - speed 3.5, incline 3 - 9 (3minutes), 11 calories minute Pt reports some issues of excess skin of upper thighs, unevenness. No chafing or rashes. [facility] Medical History (Updated 10/01/24 @ 13:32 by СЕРГЕЙ Horton) Acid reflux History of PCOS Surgical History Hx of laparoscopic partial gastrectomy Hx of LASIK Hx of wisdom tooth extraction Hx of foot surgery Family History Mother Asthma Father No problems noted. Sister No problems noted. Sister PCOS (polycystic ovarian syndrome) Sister Epilepsy Sister Diabetes Son Autism Son Autism Son No problems noted. Social History Household Members: Family Housing: Apartment Are you a primary intensive care medicine specialist to a significant other at home: Yes (3 children, mom to help post-op) Do you presently have visiting nurse or other home services: No Alcohol intake: current Alcohol intake frequency: does not drink Comment: COUNTS CORRECT Patient Tobacco Use Status: Never used Tobacco service: No Telehealth Telehealth Telehealth Platform: Telephone Location of provider rendering services: practice address Location of patient: address on file Patient Identification confirmed using: Name, : Yes Telehealth method: voice only Patient verbally consented to treatment: Yes Patient verbally consented to billing insurance company: Yes Patient informed of any privacy concerns related to visit: Yes Minutes spent on Phone/Video with Pt.: 16 Assessment & Plan Assessment & Plan (1) Overweight: Code(s): E66.3 - Overweight Category: Medical (2) S/P laparoscopic sleeve gastrectomy: Code(s): Z98.84 - Bariatric surgery status Category: Medical (3) : Code(s): Z34.90 - Encounter for supervision of normal , unspecified, unspecified trimester Category: Medical Plan Pt to stop vit A/D supplements. Will obtain bariatric vitamin. Recommended 70-75g protein per day for maintenance needs. Emailed pt handout and vitamin A rich foods. Reviewed labs. RTC 3 months. I spent a total of 30 minutes reviewing/updating records, examining the patient and counseling the patient on weight management as detailed above.
[2024-10-01 13:06] VITALS: BMI 27.1
== END 2024-10-01 14:01 | disposition home or self-care (01) ==
LOC: HO.HBS 13:54
PROVIDERS: PCP Internal Medicine; Visit Provider Physician Assistant Surgical
DX: E66.3 Overweight (principal); Z68.27 Body mass index [BMI] 27.0-27.9, adult; Z98.84 Bariatric surgery status; Z34.90 Encounter for supervision of normal pregnancy, unspecified, unspecified trimester
CPT/HCPCS: 99214; G2211

== ENCOUNTER 2025-01-01 11:18 | Outpatient (AMB) | payer OTHER, SELFPAY ==
--- NOTE | 2025-01-01 11:13 | A.OFFVIS_ITS ---
VS Expanded 01/01/25 11:17 Height 5 ft 3 in Weight 152 lb BMI 26.9 Intake Visit Reasons: TELEPHONE PO LSG 09/21/23 Allergies No Known Allergies Allergy (Verified 10/12/23 15:05) Medication List - Last Reconciled 01/01/25 by СЕРГЕЙ Horton inulin (Fiber Gummies) 2 grams PO DAILY hzbbevmputqc-nzv-yeeg-FA-vit K 45 mg iron- 800 mcg-120 mcg (Bariatric Multivitamins) caps PO sennosides (senna) 8.6 mg PO DAILY HPI Comments Details: This is a 29 yo female who is s/p LSG 09/21/2023. Presents for 1 year 3 month post op visit. Weight at last visit on 10/01/2024 was 153 pounds. In 2nd trimester of . Due in May. Nausea is better now. Had to be hospitalized for 2 days due to dehydration while having the flu. Feeling more hungry, trying to prioritize protein mostly. Weight maintaining at 153 recently, went down to 149. Present meal plan includes: 8am - 2 boiled eggs or scrambled eggs, turkey bravo lunch- salad with chicken, or will incorporate beef 3pm - bar 6 PM - protein and veg goal 75g protein per day Exercise routine includes: TBP videos 3 d/week - with weights for ST. Treadmill incline workouts Pt reports some issues of excess skin of upper thighs, unevenness. No chafing or rashes. [facility] Medical History (Updated 10/01/24 @ 13:32 by СЕРГЕЙ Horton) Acid reflux History of PCOS Surgical History Hx of laparoscopic partial gastrectomy Hx of LASIK Hx of wisdom tooth extraction Hx of foot surgery Family History Mother Asthma Father No problems noted. Sister No problems noted. Sister PCOS (polycystic ovarian syndrome) Sister Epilepsy Sister Diabetes Son Autism Son Autism Son No problems noted. Social History Household Members: Family Housing: Apartment Are you a primary healthcare manager to a significant other at home: Yes (3 children, mom to help post-op) Do you presently have visiting nurse or other home services: No Alcohol intake: current Alcohol intake frequency: does not drink Comment: COUNTS CORRECT Patient Tobacco Use Status: Never used Tobacco service: No Telehealth Telehealth Telehealth Platform: Telephone Location of provider rendering services: other Location of patient: address on file Patient Identification confirmed using: Name, : Yes Telehealth method: voice only Patient verbally consented to treatment: Yes Patient verbally consented to billing insurance company: Yes Patient informed of any privacy concerns related to visit: Yes Minutes spent on Phone/Video with Pt.: 14 Assessment & Plan Assessment & Plan (1) : Code(s): Z34.90 - Encounter for supervision of normal , unspecified, unspecified trimester Category: Medical (2) S/P laparoscopic sleeve gastrectomy: Code(s): Z98.84 - Bariatric surgery status Category: Surgical (3) Overweight: Code(s): E66.3 - Overweight Category: Medical Plan Pt doing very well so far with weight stability during . Prioritizing protein and getting most of her nutrition from whole foods. Will recheck vitamin labs and CBC- was low in vit A and D previously, but had stopped supplements, taking MVI only now. RTC 3 months. Orders: Orders Vitamin B12 and Folate Today Z34.90 - Encounter for supervision of normal , unspecified, unspecified trimester, Z98.84 - Bariatric surgery status Zinc Today Z34.90 - Encounter for supervision of normal , unspecified, unspecified trimester, Z98.84 - Bariatric surgery status Vitamin A Today Z34.90 - Encounter for supervision of normal , unspecified, unspecified trimester, Z98.84 - Bariatric surgery status Complete Blood Count Auto Diff Today Z34.90 - Encounter for supervision of normal , unspecified, unspecified trimester, Z98.84 - Bariatric surgery status Vitamin B1 Today Z34.90 - Encounter for supervision of normal , unspecified, unspecified trimester, Z98.84 - Bariatric surgery status Vitamin D 25-OH Total Today Z34.90 - Encounter for supervision of normal pre gnancy, unspecified, unspecified trimester, Z98.84 - Bariatric surgery status
[2025-01-01 11:17] VITALS: BMI 26.9
== END 2025-01-01 11:25 | disposition home or self-care (01) ==
LOC: HO.HBS 11:18
PROVIDERS: PCP Internal Medicine; Visit Provider Physician Assistant Surgical
DX: E66.3 Overweight (principal); Z68.26 Body mass index [BMI] 26.0-26.9, adult; Z90.3 Acquired absence of stomach [part of]; Z98.84 Bariatric surgery status
CPT/HCPCS: 99214; G2211

== ENCOUNTER 2025-01-11 07:33 | Outpatient (REF) | payer OTHER, SELFPAY ==
[2025-01-11 08:08] LABS: MANUAL DIFF FLAG NO
[2025-01-11 08:35] LABS: Basophils Percent Auto 0.2 % (0-2); Eosinophils Absolute Auto 0.1 X10*3/uL (0.0-0.4); Eosinophils Percent Auto 1.2 % (0-4); Hematocrit 32.7 % (37.0-47.0); Hemoglobin 11.3 g/dl (12.0-16.0); Imm Gran Abs Auto 0.02 X10*3/uL (0.00-0.03); Imm Gran Pct Auto 0.3 % (0.0-0.4); Lymphocytes Absolute Auto 0.8 X10*3/uL (1.2-4.9); Lymphocytes Percent Auto 14.3 % (20-40); Mean Corpuscular HGB Conc 34.6 g/dl (31.0-35.0); Mean Corpuscular Hemoglobin 29.4 pg (27.0-33.0); Mean Corpuscular Volume 84.9 fL (80.0-98.0); Mean Platelet Volume 11.7 fL (9.4-12.3); Monocytes Absolute Auto 0.3 X10*3/uL (0.1-1.2); Monocytes Percent Auto 5.5 % (2-11); Neutrophils Absolute Auto 4.6 x10*3/uL (2.0-8.3); Neutrophils Percent Auto 78.5 % (45-73); Platelet Count 188 X10*3/uL (160-400); Red Blood Count 3.85 X10*6/uL (4.20-5.50); Red Cell Distribution Width 14.3 % (11.0-16.0); White Blood Count 5.8 X10*3/uL (4.8-10.8)
[2025-01-11 09:26] LABS: Vitamin D 25-OH Total 35.4 ng/mL (>30)
[2025-01-11 09:39] LABS: Folate 14.2 ng/mL (> or = 4.0); Vitamin B12 402 pg/mL (200-900)
[2025-01-14 18:58] LABS: Vitamin A 51 mcg/dL (38-98)
[2025-01-15 06:13] LABS: Zinc 57 mcg/dL (60-130)
[2025-01-20 12:43] LABS: Vitamin B1 15 nmol/L (8-30)
== END 2025-01-11 07:34 | disposition home or self-care (01) ==
LOC: HO.LAB 07:33
PROVIDERS: PCP Internal Medicine; Visit Provider Physician Assistant Surgical
DX: Z34.90 Encounter for supervision of normal pregnancy, unspecified, unspecified trimester (principal); Z98.84 Bariatric surgery status
CPT/HCPCS: 36415; 82306; 82607; 82746; 84425; 84590; 84630; 85025

== ENCOUNTER 2025-03-18 13:10 | Outpatient (AMB) | payer OTHER, SELFPAY ==
--- NOTE | 2025-03-18 12:39 | MHC.OFFVISWM ---
VS Expanded 03/18/25 12:40 Height 5 ft 3 in Weight 165 lb BMI 29.2 Intake Visit Reasons: TELEPHONE PO LSG 09/21/23 Allergies No Known Allergies Allergy (Verified 10/12/23 15:05) Medication List - Last Reconciled 03/18/25 by СЕРГЕЙ Horton inulin (Fiber Gummies) 2 grams PO DAILY hkeuwjhiahdt-muh-kejg-FA-vit K 45 mg iron- 800 mcg-120 mcg (Bariatric Multivitamins) caps PO sennosides (senna) 8.6 mg PO DAILY HPI Comments Details: This is a 29 yo female who is s/p LSG 09/21/2023. Weight at last visit on 01/01/2025 was 153 pounds. In 3rd trimester of . Due in May. Nausea is better now. Had bloodwork done by PCP recently, no anemia. Present meal plan includes: 8am - 2 boiled eggs or scrambled eggs, turkey bravo lunch- salad with chicken, or will incorporate beef 3pm - bar 6pm - protein and veg- chicken and fish goal 75g protein per day Exercise routine includes: none recently due to bad sciatica - painful to walk Pt reports some issues of excess skin of upper thighs, unevenness. No chafing or rashes. Also has some excess skin of abdomen, which has actually had some rashy areas. [facility] Medical History (Updated 10/01/24 @ 13:32 by СЕРГЕЙ Horton) Acid reflux History of PCOS Surgical History Hx of laparoscopic partial gastrectomy Hx of LASIK Hx of wisdom tooth extraction Hx of foot surgery Family History Mother Asthma Father No problems noted. Sister No problems noted. Sister PCOS (polycystic ovarian syndrome) Sister Epilepsy Sister Diabetes Son Autism Son Autism Son No problems noted. Social History Household Members: Family Housing: Apartment Are you a primary district manager primary care sales to a significant other at home: Yes (3 children, mom to help post-op) Do you presently have visiting nurse or other home services: No Alcohol intake: current Alcohol intake frequency: does not drink Comment: COUNTS CORRECT Patient Tobacco Use Status: Never used Tobacco service: No Telehealth Telehealth Telehealth Platform: Telephone Location of provider rendering services: practice address Location of patient: address on file Patient Identification confirmed using: Name, : Yes Telehealth method: voice only Patient verbally consented to treatment: Yes Patient verbally consented to billing insurance company: Yes Patient informed of any privacy concerns related to visit: Yes Minutes spent on Phone/Video with Pt.: 16 Assessment & Plan Assessment & Plan (1) : Code(s): Z34.90 - Encounter for supervision of normal , unspecified, unspecified trimester Category: Medical (2) Overweight: Code(s): E66.3 - Overweight Category: Medical (3) S/P laparoscopic sleeve gastrectomy: Code(s): Z98.84 - Bariatric surgery status Category: Surgical Plan Doing well with weight gain so far in - 10lbs, goal to gain 15-25lbs total. Her nutrition plan is adequate. Plans to breastfeed and supplement formula. Pt agrees to follow up 6-8 weeks after of baby to check in. RTC in July. Medications: New clotrimazole 1% 1 appl topical BID 45 grams 3RF
[2025-03-18 12:40] VITALS: BMI 29.2
--- OUTSIDE RECORDS SUMMARY | 2025-03-18 14:13 | XMS_ITS | Clinical Summary ---
Author Organization [facility] Address [address] [place] [address] Phone Care Team Providers Care Preschool Director Name Role Phone Alecia Hubbard MD Primary Care Provider [phone] Allergies Active Allergy Reactions Criticality Noted Date Comments Other 02/27/2024 Seasonal Allergies Medications vit,lois 70-eszz-mgoyh 27 mg iron- 1 mg tabletIndications: state, incidental Take 1 tablet by mouth 1 (one) time each day. 30 each 12 09/26/20 24 Active M-Alex Plus 27 mg iron- 1 mg tablet Take 1 tablet by mouth 1 (one) time each day. 09/26/20 24 Active pyridoxine (Vitamin B-6) 25 mg tablet Take 1 tablet (25 mg total) by mouth every 8 (eight) hours if needed (nausea). 180 tablet 1 12/07/19 25 Active Additional Information Patient not taking.Reported on 03/08/2025 ondansetron ODT (ZOFRAN-ODT) 4 mg disintegrating tablet Take 1 tablet (4 mg total) by mouth every 8 (eight) hours if needed. 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 [facility] site: [facility] ([facility]): [address] [place] [phone] ([phone]) 2. Delivery site: [facility] 3. Mobile Mommas: No 4. Dating criteria: LMP 5. Blood type: O+ 6. 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 GBS: Date: 7. FOB name: Olvin 8. Plans A. Epidural or other pain management - B. Labor support identified - C. Tdap - Date: Flu - Date: D. Breast or Bottle feed: E. Baby's name - F. Circumcision - 9. Hospital Course: Anemia 11/05/2024 H/O gastric sleeve 11/05/2024 Estimated Date of Delivery Comme nts Yes 05/29/2025 Date entered manohar or to episode creation Resolved Problems Problem Noted Date Diagnosed Date Resolved Date Morbid obesity with BMI of 4 5.0-49.9, adult ([facility] V24, [facility] V28) 02/03/2023 11/13/2024 Encounters Date Type Department Care Team Description 03/14/2025 9:00 AM EDT Routine Obstetrics & Gynecology - [address] [phone] Kerry Sorto CNM 29 weeks gestation of (Primary Dx); Vaginal discharge during in third trimester; Need for hlpxziykxs-fizddij-w ertussis (Tdap) vaccine; care, subsequent in third trimester; Screening for depression 03/08/2025 8:30 AM EDT Office Visit Adult Medicine [address] [phone] Alecia Hubbard MD PE (physical exam), annual (Primary Dx) 02/14/2025 9:00 AM EDT Routine Obstetrics & [address] [phone] Kerry Sorto CNM care, subsequent in second trimester (Primary Dx); 25 weeks gestation of 02/14/2025 Telephone Obstetrics [address] [phone] Kerry Sorto CNM Forms/questionnaires (fmla) 02/12/2025 Telephone Obstetrics [address] [phone] Kerry Sorto CNM Med Refill 01/17/2025 9:00 AM EDT Routine Obstetrics & [address] [phone] Kerry Sorto CNM 21 weeks gestation of (Primary Dx); care, subsequent in second trimester 01/11/2025 9:00 AM EDT Ancillary Procedure Maternal Medicine [address] [phone] care, subsequent in first trimester; Encounter for anatomic survey 12/20/2024 9:00 AM EST Routine Obstetrics & [address] [phone] Kerry Sorto CNM 17 weeks gestation of (Primary Dx); Acute vaginitis; care, subsequent in second trimester from Last 3 Months Immunizations Name Administration Dates Next Due DTaP (Infanrix) 6wks to less than 7yo 01/14/2009 ,05/21/1999,04/13/1997 AWhM-RBP-EOX (Pentacel) 2mo to less than 5yo 04/13/1997,02/14/1997,08/13/1996,07/17 HPV 9-valent (Gardisil) 9yo to less than 46yo 05/15/2018,01/12/2018,11/14/2017 HPV, Quadrivalent 07/13/2011,05/08/2010,02/22/20 09 Hepatitis B Pediatric (Enger ix B; Recombivax HB) to less than 20 yo 02/14/2007,08/13/1996,1995 IPV Inactivated polio (Ipol) 6wks and older 05/21/1999 Influenza Quadravalent, MDCK , 0.5ml, preservative free (Flucelvax) 6mo and older 11/23/2019 Influenza trivalent, 0.5mL, preservative free (Fluarix; FluLaval; Fluzone) ages 6mo and older (Afluria) 3 years and older 08/26/2016 MMR, measles mumps and rubel la Live (Priorix; M-M-R II) 12mo and older 05/21/1999,08/13/1996 Meningococcal MCV4P 07/13/2011 Moderna SARS-CoV-2 COVID-19, mRNA, LNP-S, preservative free 09/21/2021,02/26/2021,01/27/2021 PPD Test 02/28/2018 Td Tetanus diptheria (Tdvax) 7yo and older 10/31/2017 Tdap Tetanus diptheria acell ular pertussis (Boostrix; Adacel) 7yo and older 03/14/2025,01/15/2022,03/27/2021,12/1703/14/2035 Surgical History Surgery Date Site/Laterality Comments FOOT SURGERY Bilateral PROCEDURE: HISTORICAL FOOT SURGERY; COMMENT: Bunion removal age [age] OTHER SURGICAL HISTORY 09/16/2023 - 10/16/2023 laparascopic gastric sleeve LASIK 10/17/2021 - 10/16/2022 Medical History Medical History Date Comments PCOS (polycystic ovarian syndrome) 04/2021 DX:PCOS (polycystic ovarian syndrome) Obesity DX:Obesity Type O blood, Rh positive 08/2021 DX:Typ e O blood, Rh positive History of COVID-19 10/17/2021 DX:History o f COVID-19 Family History Medical History Relation Name Comments No Known Problems Father Diabetes Half-Sister 1 Asthma Mother Rhea Emanuel Other cancer Paternal Grandmother Asthma Sister Yesmarie Gordon Depression Sister Yesmarie Gordon Diabetes Sister Yesmarie Gordon Other: autism Son 1 Other: autism Son 2 Breast cancer Neg Hx Ovarian cancer Neg Hx Relation Name Status Comments Father Alive Half-Sister 1 Alive Half-Sister 2 Alive Half-Sister 3 Alive Maternal Grandfather Alive Maternal Grandmother Alive Mother Rhea Emanuel Alive Paternal Grandfather Unknown Paternal Grandmother Sister Paige Gordon Alive Son 1 Alive Son 2 Alive Social History Tobacco Use Types Packs/Day Years Used Date Smoking Tobacco: Never Smokeless Tobacco: Never Alcohol Use Standard Drinks/Week Comments Not Currently 0 (1 standard drink = 0.6 oz pur e alcohol) Housing Instability Answer Date Recorde d Are you worried that in the next 2 months you may not have stable housing? No 11/08/2024 Food Access & Nutrition Answer Date Rec orded Do you have access to a vari ety of food including fruits and vegetables? Yes 11/08/2024 Access to Healthcare Answer Date Record ed Within the last 3 months, ho w many times did you visit the emergency department for your medical care? 0 11/08/2024 Health Literacy Answer Date Recorded How often do you need to hav e someone help you when you read instructions, pamphlets, or other written material from your doctor or pharmacy? Never 11/08/2024 Caregiver: How often do you need to have someone help you when you read instructions, pamphlets, or other written material from your doctor or pharmacy? Not on file 11/08/2024 Financial Risk Answer Date Recorded How hard is it for you to pa y for the very basics like food, housing, medical care, and air conditioning / heating? Not very hard 11/08/2024 Transportation Answer Date Recorded Has the lack of transportati on kept you from meetings, work, or from getting things needed for daily living? No Has the lack of transportati on kept you from medical appointments or from getting medications? No 11/08/2024 Social Isolation Answer Date Recorded How often do you feel lonely or isolated from th ose around you? Rarely 11/08/2024 Food Risk Answer Date Recorded Within the past 12 months we worried whether our food would run out before we got money to buy more. Sometimes true 025 Within the past 12 months th e food we bought just didn't last and we didn't have money to get more. Sometimes true 11/08/2024 Dependent Care Answer Date Recorded Do you need help finding or paying for care for your loved ones. For example, director child development center or elderly care for an older adult? No 11/08/2024 Education Answer Date Recorded Do you think completing more education or training, like finishing a GED, going to college, or learning a trade, would be helpful for you? Yes 11/08/2024 Employment and Income Answer Date Recor ded During the last four weeks, have you been actively looking for work? No 11/08/2024 Living Situation Answer Date Recorded What is your living situation? 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 [employer] Not on file Not on file Not on file Obstetrics History Para Term AB IAB SAB Ectopic Multiple Livin g Live Births 4 3 3 3 3 Date Outcome GA Total Labor Labor/2nd/3rd Weight Sex Type Anes PTL Jennifer A1 A5 Name Clin 2014 Term 40w 2d 2858 g (100.8 oz) M Vag-V acuum Epidur al N Livin g 9 9 Abrahan hoang MD Complications:Carrier of traci up B Streptococcus,Oligohydramnios Delivery Location:[facility] Comments:induction - s evere oligohydraminos 2015 Term 39w 3d 2985 g (105.3 oz) M Vag-S pont None N Livin g 8 9 Adri Jo CNM Complications:Carrier of traci up B Streptococcus Delivery Location:[facility] 2021 Term 39w 3d 3289 g (116 oz) M Vag-S pont Epidur al Livin g Jose Manuel Feinl and Complications:None Comments:IOL for oligo ; +GBS Current Summary Episode Dates Number of Fetuses Estimated Date of Delivery 11/05/2024 - Present (03/18/2025) 1 05/29/2025 (based on Alternate SIVAN Entry) Dating Summary Based On SIVAN [place] Diff Last Menstrual Period on 08/22/2024 (Exact Date) 05/29/2025 Same Comment:recent removal of iu d, 1 day of bleeding in oct Alternate SIVAN Entry 05/29/2025 Working Comment:Date entered prior t o episode creation Overview and Plan :[facility] Delivery Plans Post-Delivery Plans Deliver by GA (weeks):40 Feeding intenti ons:Exclusive Planned delivery method:Vaginal Planned delivery location:[facility] Overview Shop Blacksmith: [facility] Vitals Pregravid Weight Height TWG (As of 03/18/2025) Pregrav id BMI 69.4 kg (153 lb) 1.6 m (63 ) 7.62 kg (16 lb 12.8 oz) 27.11 Notes Progress Notes - Routine Pre alex - 03/14/2025 - GA:29w1d 03/14/2025 - 29w1d - Kerry Sorto CNM OB Visit: Vitals BP: 113/68 (p 95) Weight: 77 kg (169 lb 12.8 oz) Assessment Heart Rate: 148 Fundal Height (cm): 30 cm Movement: Present Vaginal Drainage Leaking Fluid: No 30 y.o. old female at 29w1d. Doing well. Appropriate FM. No LOF/VB/cramping. Her only new concern is increased mucoid vaginal discharge, no odor, no itch, will send to r/o infection. Otherwise healthy . Her BP is reviewed and is Normal. Tdap was offered and accepted. This patient has received Tdap during this . This patient has received syphilis testing during this . This patient does not require a urine drug screen. Desires Tubal: n/a. Signs and symptoms of labor reviewed including reasons to call triage. Counseled normal cervical mucous changes in . Problem List reviewed and updated. RTO 2 weeks. EPDS 2 Kerry Sorto CNM on 03/14/2025 at 9:48 AM EDT 03/14/2025 - 29w1d - Arslan García MA Ob f/up, c/o thick discharge 1hr gtt done 03/08: 118 Epds: 2 The patient acknowledges that they will be receiving the Tdap (Brand Name Boostrix or Adacel) (Tetanus/Diptheria/Pertussis) vaccine: YES Immunization tab reviewed: It has been at least 9 years since last Tdap vaccine administration. If less than 9 years, provider notified. YES Exception: patients should receive a Tdap with each , preferably during the 3rd trimester. Denies allergy or reaction to previous Tetanus, Diptheria or pertussis vaccination: YES Denies history of Guillain [place] Syndrome.or any type of seizure disorder. YES Patient made aware that they may experience pain/swelling at the site after receiving a Tetanus or Diptheria vaccine. YES Acknowledges reviewing the VIS dated 05/22/2021 (copy made available): YES Denies moderate or severe illness or fever of >100 degrees F: YES Patient agrees to wait in the office for 20 minutes after receiving the injection: YES Tdap vaccine administered IM. See Imm/Inj tab Progress Notes - Routine Pre alex - 02/14/2025 - GA:25w1d 02/14/2025 - 25w1d - Kerry Sorto CNM OB Visit: Vitals BP: 128/79 (p 104) Weight: 75.6 kg (166 lb 11.2 oz) Assessment Heart Rate: 140 Fundal Height (cm): 26 cm Movement: Present Vaginal Drainage Leaking Fluid: No 30 y.o. old female at 25w1d. Doing well. + FM. No LOF/VB/cramping. Her only new concern is pelvic/vaginal pressure. Otherwise healthy . Her BP is reviewed and is Normal. She does not require a urine drug screen. 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 Problem List reviewed and updated. 3rd T and tdap next appt RTO 4 weeks. Patient is planning to breast feed. Benefits of breast feeding were discussed at this visit. Kerry Sorto CNM on 02/14/2025 at 9:18 AM EDT 02/14/2025 - - Arslan García MA Ob f/up Progress Notes - Routine Pre - 01/17/2025 - GA:21w1d 01/17/2025 - - Kerry Sorto CNM OB Visit: Vitals BP: 115/72 (P 97) Weight: 73.6 kg (162 lb 3.2 oz) Assessment Heart Rate: 140 Fundal Height (cm): 20 cm Movement: Present Vaginal Drainage Leaking Fluid: No 29 y.o. old female at 21w1d. Doing well. + FM. No LOF/VB/cramping. Her only new concern is none. Otherwise healthy . Her BP is reviewed and is Normal. Aneuploidy screening reviewed; it is Normal. MSAFP up to date.- Negative screen. She does not require a urine drug screen. Signs and symptoms of labor reviewed including reasons to call triage. Problem List reviewed and updated. RTO 4 weeks. She will look into PFMLA/DFMLA. Kerry Sorto CNM on 01/17/2025 at 8:49 AM EDT 01/17/2025 - - Arslan García MA OB CHECK Progress Notes - Routine Pre alex - 12/20/2024 - GA:17w1d 12/20/2024 - - Kerry Sorto CNM OB Visit: Vitals BP: 123/81 (P 101) Weight: 69.9 kg (154 lb) Assessment Heart Rate: 150 Fundal Height (cm): 18 cm Movement: Present Vaginal Drainage Leaking Fluid: No 29 y.o. old female at 17w1d. Doing well. + FM. No LOF/VB/cramping. Her only new concern is vaginal discharge/itching/ s/p treatment for UTI. Recent flu dx on 12/14. Otherwise healthy . Her BP is reviewed and is Normal. Aneuploidy screening reviewed; it is Normal. MSAFP ordered. She does not require a urine drug screen. Rev'd normal second trimester changes, comfort measures including reasons to call triage. Problem List reviewed and updated. RTO 4 weeks. Orders Placed This Encounter Procedures Wet prep, genital Alpha fetoprotein, maternal Treat pending results Kerry Sorto CNM on 12/20/2024 at 9:51 AM EST 12/20/2024 - 17w1d - Arslan García MA OB F-UP Progress Notes - Initial Pre - 11/14/2024 - GA:12w0d 11/14/2024 - 12w0d - Kerry Sorto CNM OB 12 week appt IP: S: Frankie is a 29 y.o. year old here for IP visit alone . Her is planned. She and the father of the baby are happy. Patient's last menstrual period was 08/22/2024 (exact date). She is certain of her LMP with regular cycles. is currently dated by LMP only. She complains of nausea, vomiting, breast tenderness, and back pain. She denies vaginal bleeding or cramping. States just feels blah Not taking anything for nausea, intermittent vomiting, She is requesting herpes screen due to possible partner infidelity . I just found something out and she did not wish to elaborate O: Blood pressure 123/82, weight 68 kg (150 lb), last menstrual period 08/22/2024. See OB physical and labs. Vitals BP: 123/82 (p 94) Weight: 68 kg (150 lb) Assessment Heart Rate: 160 Fundal Height (cm): 12 cm No results found for: ABORH Lab Results Component Value Date RH Positive 11/05/2024 A: at 12w0d weeks gestation. 1. care, subsequent in first trimester 2. 12 weeks gestation of 3. Exposure to herpes simplex virus (HSV) 4. Screen for STD (sexually transmitted disease) 5. Screening for genetic disease carrier status 6. Screening for depression P: Genprobe obtained today. Herpes antibody ordered Oriented to THoNE MG and anticipated course. Discussed collaborative practice and [facility] delivery. Reviewed healthy eating and normal weight gain in . Encouraged patient to push PO fluids. 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 Discussed the benefits of breast feeding and strongly encouraged to consider this. Counseled regarding the diagnosis of anomalies. She was offered a referral to maternal medicine for nuchal lucency. She accepts Panorama/Horizon testing reviewed. RTO 4 weeks. Declines partner Horizon screening as he does not have insurance The patient does not require anesthesia consult. This patient's VTE risk status is low. [place] Depression Scale: In the Past 7 Days I have been able to laugh and see the funny side of things.: As much as I always could I have looked forward with enjoyment to things.: As much as I ever did I have blamed myself unnecessarily when things went wrong.: Not very often I have been anxious or worried for no good reason.: No, not at all I have felt scared or panicky for no good reason.: No, not much Things have been getting on top of me.: No, I have been coping as well as ever I have been so unhappy that I have had difficulty sleeping.: Not at all I have felt sad or miserable.: Not very often I have been so unhappy that I have been crying.: Only occasionally The thought of harming myself has occurred to me.: Never [place] Depression Scale Total: 4 Kerry Sorto CNM on 11/14/2024 at 3:38 PM EST 11/14/2024 - 12w0d - Arslan García MA Pt here for IP Pap 02/03/2023 wnl EPDS: 4 Progress Notes - Clinical Chan pport - 11/05/2024 - GA:10w5d 11/05/2024 - wd - Jaclyn Claire RN Frankie Her is a 29 y.o. old female at 10w5d. This is [place]. The patient feels happy about the . The FOB is supportive he is the father of all of her children but he does not live with her. Denies DV. Patient's last menstrual period was 08/22/2024 (exact date). (exact date)., which would make her currently 10w5d with an Estimated Date of Delivery: 05/29/25. She is certain of her date. An ultrasound has not been ordered to confirm dating Patient has significant history of: VAVD 2014, SAVD x2 ,Oligohydramnios and anemia, PCOS Gastric sleeve 2022 OB Past Medical History: Have you had or do you currently have: Diabetes? No Hypertension? No Heart disease, Mitral valve Prolapse, or Rheumatic fever? No An Autoimmune disease such as Lupus or Rheumatoid Arthritis? No Epilepsy, Seizures, or Spells? No Migraine Headaches? No Stroke or loss of function or sensation? No Additional Questions: Have you ever been treated for anxiety and/or depression? No Are you having problems with crying spells or loss of self-esteem? No Have you ever required psychiatric care? No Have you ever had hepatitis, liver disease or jaundice? No Have you ever been treated for blood clots in your veins, deep venous thrombosis, inflammation in the veins, thrombosis, phlebitis, pulmonary embolism or varicosities? No Have you had excessive bleeding after surgery or dental work? No Do you bleed more than other women after a cut or scratch? No Do you have a history of anemia? Yes Have you ever had Thyroid problems or taken Thyroid medications? No Do you have any other Endocrine Problems (ie. PCOS)? No Have you ever been in a major accident or suffered serious trauma? No Within the last year, has anyone hit, slapped, kicked or otherwise hurt you? No In the last year, has anyone forced you to have sex when you didn't want to? No Do you feel safe at home? Yes Have you ever received a blood transfusion? No Would you refuse a blood transfusion if a doctor judged to be medically necessary? No Would you rather than receive a blood transfusion? No If you answered yes to the above questions, is this for cheondoism reasons? No Do you know what your blood type is or if you are Rh Negative? No Have you ever had abnormal antibodies in your blood? No Have you ever had asthma? No Have you every had Tuberculosis? No Have you ever had any breast problems? No Have you ever breast fed? Yes Have you ever had any gynecological surgical procedures such as cervical conization, LEEP procedure, Laser treatment, cryosurgery of the cervix or dilation and curettage, etc? No Have you had any other surgical procedures? Yes Gastric sleeve 2022 lost 100lbs Have you ever been hospitalized overnight for a non-surgical reason excluding normal delivery? No Have you ever had anesthesia complications? No Have you ever had an abnormal pap smear? No Do you have a history of abnormalties of the uterus? No Did your mother take OSBALDO or any other hormones when she was with you? No Did it take more than one year to become ? No Have you ever been evaluated or treated for infertility? No Is there a history of medical problems in your family which you feel might adversely affect your health or ? No Do you have any other problems we have not asked you about which you feel may be important for us to know for this ? No Do you currently have any of the following symptoms since your last menstrual period: Abdominal pain, blood in the stool or urine, chest pain, shortness of breath, coughing or vomiting up blood, your heart racing or skipping beats, nausea and/or vomiting, pain on urination, or vaginal discharge or vaginal bleeding? No OB Infection History: Do you object to being tested for Hepatitis B? No Do you object to being tested for HIV? No Do you feel that you are at high risk for coming contact with the AIDS virus? No Have you ever been treated for tuberculosis? No Have you ever received the BCG vaccine? No Have you ever had a positive skin test for Tuberculosis? No Do you live with someone who has Tuberculosis? No Have you ever been exposed to Tuberculosis? No Do you have Genital Herpes? No Does your partner have Genital Herpes? No Have you had a rash or viral illness since your last period? No Have you ever had Gonorrhea, Chlamydia, Syphilis, Venereal Warts, Trichomoniasis, Pelvic Inflammatory Disease (PID) or any other sexually transmitted disease? No Do you know if you are a Group B Streptococcus Carrier? Yes Did you have the Chicken Pox/Varicella? No Were you vaccinated against Chicken Pox/Varicella? Yes Have you had any other infectious diseases? No Frankie Her has been instructed on the following: random urine drug screening policy and an initial urine drug screen has been ordered., She has been counseled regarding avoiding hazards, litter boxes, smoking, drug and alcohol use during Frankie Her has also been informed of the paper bundler provider recommendation for first trimester nuchal lucency testing to be performed during her . Frankie Her has also been made aware of the time sensitive nature for this testing to be completed. . The patient now has a gestational age of 10w5d. The patient would be due for this testing prior to 14 weeks gestation which would be on 11/27/24 Ethnicity Based Genetic Testing has been reviewed and the [employer] information sheet has been provided to the patient in their After Visit Summary. The patient was also advised that genetic testing may not be covered by all insurances. The patients states that they understand this information. The patient states that she has not had the genetic screening for Horizon 14 done in the past during a previous . . The patient has agreed that she does want genetic testing for Horizon 14 The following Labs have been ordered: Obstetric Panel, HgA1c, Early Glucose Screen, HIV with verbal Consent, Hepatitis C, Urine Culture, UDS, Panorama with gender, and Horizon 14 panel She is aware that her insurance may or may not cover Panorama and/or Horizon 14 test and discussed jefferson only najera for test(s) - info given today in her after visit summary . She would like to proceed with testing. Electronically signed by: Jaclyn Claire RN 11/05/24 10:16 AM EST Last Filed Vital Signs Vital Sign Reading Time Taken Comments Blood Pressure 113/68 03/14/2025 9:01 AM EDT p 9 5 Pulse 74 03/08/2025 8:07 AM EDT Temperature 36.6 ??C (97.8 ??F) 03/08/2025 8:07 AM ED T Respiratory Rate 14 03/08/2025 8:07 AM EDT Oxygen Saturation 98% 03/08/2025 8:07 AM EDT Inhaled Oxygen Concentration - - Weight 77 kg (169 lb 12.8 oz) 03/14/2025 9:01 AM EDT Height 160 cm (5' 3 ) 03/08/2025 8:07 AM EDT Body Mass Index 30.08 03/08/2025 8:07 AM EDT Plan of Treatment Upcoming Encounters Date Type Department Care Team (Late st Contact Info) Description 03/28/2025 9:15 AM EDT Routine Obstetrics & Gynecology - [facility] [address] [place] [phone] Kerry Sorto, [address] [address] 04/05/2025 8:00 AM EDT Ancillary Procedure Maternal Medicine [address] [phone] 04/11/2025 9:15 AM EDT Routine Obstetrics & Gynecology - [address] [phone] Kerry Sorto, [address] [address] 03/13/2026 9:30 AM EDT Office Visit Adult Medicine [address] [phone] Alecia Hubbard MD [address] [place] [phone] Health Maintenance Due Date Last Done Comments Influenza Vaccine (Season Ended) 2025 11/23/2019, 08/26/2016 Social Influencers of Health Screening 11/08/2025 11/08/2024 Cervical Cancer Screening: Pap Smear 02/03/2026 02/03/2023, 02/03/2023, 12/25/2019, Additional history exists COVID-19 Vaccine ( season) 2026 09/21/2021, 02/26/2021, 01/27/2021 Postponed from 06/17/2024 (Patient Refused) Depression Screening 03/13/2026 03/13/2025, 02/27/20 Cholesterol Screening (Lipid Panel) 03/01/2029 03/01/2024, 03/01/2024 DTaP,Tdap,and Td Vaccines (11 - Td or Tdap) 03/14/2035 03/14/2025, 01/15/2022, 03/27/2021, Additional history exists HIB Vaccines Completed 04/13/1997, 10/1996, 08/13/1996, Additional history exists IPV Vaccines Completed 05/21/1999, 03/18, 02/14/1997, Additional history exists Hepatitis B Vaccines Completed 02/14/2007, 08/13/1996, 1995 Meningococcal ACWY Vaccine Completed 07/13/2011 HPV Vaccines Completed 05/15/2018, 12/16, 11/14/2017, Additional history exists HIV Screening Completed 11/05/2024, 02/07/2024 Hepatitis C Screening Completed 11/05/2024, 024 Hepatitis A Vaccines Aged Out No long er eligible based on patient's age to complete this topic Meningococcal B Vaccine Aged Out No l onger eligible based on patient's age to complete this topic Pneumococcal Vaccine: Pediatrics (0 to 5 Years) and At-Risk Patients (6 to 64 Years) Aged Out No longer eligible based on patient's age to complete this topic RSV Immunization Patients Under 20 months Aged Out No longer eligible based on patient's age to complete this topic Procedures Procedure Name Priority Date/Time Associated Diagnosis Comments TRICHOMONAS VAGINALIS ANTIGEN Routine 03/14/2025 9:22 AM EDT 29 weeks gestation of Vaginal discharge during in third trimester WET PREP, GENITAL Routine 03/14/2025 9:2 2 AM EDT 29 weeks gestation of Vaginal discharge during in third trimester CBC WITH AUTO DIFFERENTIAL Routine 03/08/2025 7:48 AM EDT 25 weeks gestation of GTT GESTATIONAL 1 HOUR Routine 7:48 AM EDT 25 weeks gestation of CBC AND DIFFERENTIAL Routine 03/08/2025 7:48 AM EDT 25 weeks gestation of GLUCOSE TOLERANCE TEST, 1H GESTATION Routine 03/08/2025 7:48 AM EDT 25 weeks gestation of TREPONEMA PALLIDUM ANTIBODY WITH REFLEX TO RPR AND PARTICLE AGGLUTINATION Routine 03/08/2025 7:48 AM EDT 25 weeks gestation of US OB DETAILED SINGLE OR FIRST GESTATION Routine 01/11/2025 10:54 AM EDT care, subsequent in first trimester Encounter for anatomic survey EXTERNAL CLINICAL LAB 01/11/2025 EXTERNAL CLINICAL LAB 01/11/2025 EXTERNAL CLINICAL LAB 01/11/2025 ALPHA FETOPROTEIN, MATERNAL Routine 12/20/2024 10:11 AM EST 17 weeks gestation of TRICHOMONAS VAGINALIS ANTIGEN Routine 12/20/2024 9:41 AM EST 17 weeks gestation of Acute vaginitis WET PREP, GENITAL Routine 12/20/2024 9:4 1 AM EST 17 weeks gestation of Acute vaginitis HEPATITIS C ANTIBODY Routine 11/05/2024 12:36 PM EST care, subsequent in first trimester HIV 1, 2 ANTIBODY, P24 ANTIGEN WITH REFLEX TO DIFFERENTIATION Routine 11/05/2024 12:36 PM EST care, subsequent in first trimester LIPID PANEL Routine 03/01/2024 HM DEPRESSION SCREENING Routine 02/27/2024 PAP SMEAR Routine 02/03/2023 from Last 3 Months or Most Recently Relevant to Health Maintenance Results * Trichomonas vaginalis antigen (03/14/2025 9:22 AM EDT) Only the most recent of2 resultswithin the time period is included. Trichomonas vaginalis Negative Negative 03/14/2025 1:46 PM EDT [facility] Swab Vaginal structure / Unknown Non-blood Collection / Unknown 03/14/2025 9:22 AM EDT 03/14/2025 12:13 PM EDT [facility] MICROBIOLOGY - GENERAL OR DERABLES Final Result Performing Organization Address [facility] [address] [facility] Co de Phone Number [facility] [address] [place] [address], [place] [phone] * Wet prep, genital (03/14/2025 9:22 AM EDT) Only the most recent of2 resultswithin the time period is included. Clue Cells, Wet Prep Negative Negative 03/14/2025 1:45 PM EDT [facility] Yeast, Wet Prep Negative Negative 03/14/2025 1:45 PM EDT [facility] Trichomonas, Wet Prep Indeterminate Negative 03/14/2025 1:45 PM EDT [facility] Comment:Refer to Trichomonas antigen. Swab Vaginal structure / Unknown Non-blood Collection / Unknown 03/14/2025 9:22 AM EDT 03/14/2025 12:13 PM EDT [facility] MICROBIOLOGY - GENERAL OR DERABLES Final Result Performing Organization Address [facility] [address]/ZIP Co de Phone Number [facility] [address] [place] [address], [place] [phone] * Treponema pallidum antibody with reflex to RPR and particle agglutination (03/08/2025 7:48 AM EDT) [facility] T. Pallidum Antibodies Negative Negative LAB CHEMISTRY METHOD 03/08/2025 1:18 PM EDT [facility] Blood Venous blood specimen / Unknown Venipuncture / Unknown 03/08/2025 7:48 AM EDT 03/08/2025 7:48 AM EDT Kerry Sorto [facility] BLOOD ORDERABLES Final Re sult Performing Organization Address [facility] [address]/ZIP Co de Phone Number [facility] [address] [place] [address], [place] [phone] * GTT gestational 1 hour (03/08/2025 7:48 AM EDT) [facility] Glucose, 1 HR Gestational 118 See Comment mg/dL LAB CHEMISTRY METHOD 03/08/2025 1:32 PM EDT [facility] Blood Venous blood specimen / Unknown Venipuncture / Unknown 03/08/2025 7:48 AM EDT 03/08/2025 7:48 AM EDT Narrative [facility] - 03/08/2025 1:32 PM EDT Gestational Diabetes Challenge Reference Range: 1 hour Glucose <140 mg/dL Kerry Sorto [facility] BLOOD ORDERABLES Final Re sult [facility] [address] [place] [address], [place] [phone] * (ABNORMAL) CBC auto differential (03/08/2025 7:48 AM EDT) [facility] WBC 7.1 4.8 - 10.8 [facility] HEMETOLOGY METHOD 03/08/2025 11:27 AM [facility] RBC 4.00 3.80 - 4.80 M/mcL LAB HEMETOLOGY METHOD 03/08/2025 11:27 AM [facility] Hemoglobin 11.6 11.5 - 16.0 g/dL LAB HEMETOLOGY METHOD 03/08/2025 11:27 AM [facility] Hematocrit 34.9(L) 35.0 - 47.0 % LAB HEMETOLOGY METHOD 03/08/2025 11:27 AM [facility] MCV 87.5 79.0 - 98.0 FL LAB HEMETOLOGY METHOD 03/08/2025 11:27 AM [facility] MCH 29.1 27.0 - 32.0 pcg LAB HEMETOLOGY METHOD 03/08/2025 11:27 AM [facility] MCHC 33.2 32.0 - 37.0 g/dL LAB HEMETOLOGY METHOD 03/08/2025 11:27 AM [facility] RDW 13.0 11.0 - 15.0 % LAB HEMETOLOGY METHOD 03/08/2025 11:27 AM [facility] Platelets 200 130 - 400 K/mcL LAB HEMETOLOGY METHOD 03/08/2025 11:27 AM [facility] MPV 12.3(H) 7.0 - 11.0 FL LAB HEMETOLOGY METHOD 03/08/2025 11:27 AM [facility] NRBC 0.0 <1.0 % LAB HEMETOLOGY METHOD 03/08/2025 11:27 AM [facility] NRBC Absolute 0.00 <0.10 K/mcL LAB HEMETOLOGY METHOD 03/08/2025 11:27 AM [facility] Neutrophils Relative 83.2 % LAB HEMETOLOGY METHOD 03/08/2025 11:27 AM [facility] Lymphocytes Relative 10.8 % LAB HEMETOLOGY METHOD 03/08/2025 11:27 AM [facility] Monocytes Relative 4.3 % LAB HEMETOLOGY METHOD 03/08/2025 11:27 AM [facility] Eosinophils Relative 0.4 % LAB HEMETOLOGY METHOD 03/08/2025 11:27 AM [facility] Basophils Relative 0.3 % LAB HEMETOLOGY METHOD 03/08/2025 11:27 AM [facility] Immature Granulocytes Relative 1.0 % LAB HEMETOLOGY METHOD 03/08/2025 11:27 AM [facility] Neutrophils Absolute 5.93 1.50 - 7.00 K/mcL LAB HEMETOLOGY METHOD 03/08/2025 11:27 AM [facility] Lymphocytes Absolute 0.77(L) 1.00 - 5.00 K/mcL LAB HEMETOLOGY METHOD 03/08/2025 11:27 AM [facility] Monocytes Absolute 0.31 0.20 - 1.00 K/mcL LAB HEMETOLOGY METHOD 03/08/2025 11:27 AM [facility] Eosinophils Absolute 0.03 0.00 - 0.50 K/mcL LAB HEMETOLOGY METHOD 03/08/2025 11:27 AM [facility] Basophils Absolute 0.02 0.00 - 0.20 K/mcL LAB HEMETOLOGY METHOD 03/08/2025 11:27 AM [facility] Immature Granulocytes Absolute 0.07(H) 0.00 - 0.03 K/mcL LAB HEMETOLOGY METHOD 03/08/2025 11:27 AM [facility] Blood Venous blood specimen / Unknown Venipuncture / Unknown 03/08/2025 7:48 AM EDT 03/08/2025 7:48 AM EDT us Kerry Sorto [facility] BLOOD ORDERABLES Final Re sult [facility] [address] [place] [address], [place] [phone] * US OB Detailed Single or First Gestation (01/11/2025 10:54 AM EDT) Anatomical Region Laterality Modality Body Ultrasound 01/11/2025 8:29 AM EDT Narrative 01/11/2025 1:48 PM EDT OBSTETRICS REPORT ?(Signed Final 01/11/2025 01:48 pm) PATIENT INFO: ID #: ? [id number] ? : ??[birth year] (29 yrs)(F) Name: ? FRANKIE CUENCA ?Visit Date: 01/11/2025 08:29 am ? ADALBERTO PERFORMED BY: Attending: ?Praveena Lindsay MD Performed By: ? Toi Du RDMS Referred By: ?Kerry Sorto CNM Ref. Address: ? [address] ? [place], [place] ??[address] Location: ? [facility] ([facility]) SERVICE(S) PROVIDED: US Level II complete (Targeted OB) ?[address] INDICATIONS: Bariatric surgery status complicating ?O99.842 , second trimester Encounter for screening for ?Z36.3 malformations 20 weeks gestation of ?Z3A.20 TECHNIQUE/SCAN QUALITY: Technique: ?? Transabdominal Scan ? Satisfactory Quality: OB HISTORY: : ?4 ? Term: ?? 3 ?Daryn: ?? 0 ?SAB: ?? 0 TOP: ?0 ? Ectopic: ??0 ?Livin VITAL SIGNS: Weight (lb) ?? Height ?BMI 154 ? 5'3 ?27.28 EVALUATION: Number Of Fetuses: ? 1 Heart Rate(bpm): ?? 149 Cardiac Activity: ?Observed Presentation: ?Cephalic Placenta Location: ?Anterior Appearance: ?Grade 1 Relation to CVX: ? No previa Cord Insertion: ?Normal appearance Amniotic Fluid ANDREW FV: ?Within Normal Limits Comment: ?A >2 x 2 cm pocket of fluid is noted. BIOMETRY: BPD: ?49.4 ??mm ? G.Age: ?? 21w 0d ?76 ??% HC: ?183.5 ??mm ? G.Age: ?? 20w 5d ?62 ??% AC: ?153.8 ??mm ? G.Age: ?? 20w 4d ?54 ??% FL: ? 34.9 ??mm ? G.Age: ?? 21w 0d ?68 ??% HUM: ?31.1 ??mm ? G.Age: ?? 20w 2d ?53 ??% CER: ?21.4 ??mm ? G.Age: ?? 20w 3d ?52 ??% NFT: ? 3.7 ??mm NB: ? 7.12 ??mm ? 58 ??% ? > 1 ??MoM LV: ?6.8 ??mm CM: ?5.4 ??mm OOD: ?31.9 ??mm ? G.Age: ?? 19w 2d ?42 ??% CI: ? 73.21 ??% ? 70 - 86 FL/HC: ? 19.0 ??% ? 16.8 - 19.8 HC/AC: ? 1.19 ?1.09 - 1.39 FL/BPD: ?70.6 ??% FL/AC: ? 22.7 ??% ? Est. FW: ? 376 ??gm ? 0 lb 13 oz ? 73 ??% GESTATIONAL AGE: LMP: ? 20w 2d ?Date: ??08/22/24 ?SIVAN: ?? 05/29/25 U/S Today: ? 20w 6d ?SIVAN: ?? 05/25/25 Best: ?20w 2d ?? Det. By: ??LMP ??(08/22/24) ?SIVAN: ?? 05/29/25 DETAILED ANATOMY: Head / Neck Cranial Vault: ?Normal appearance Cavum Septi Pellucidi: ??Normal appearance Parenchyma: ? Normal appearance R. Lat. Ventricle: ?Normal appearance L. Lat. Ventricle: ?Normal appearance Corpus Callosum: ?Normal appearance Midline Falx: ? Normal appearance R. Choroid Plexus: ?Normal appearance L. Choroid Plexus.: ? Normal appearance Cerebellum: ? Normal appearance CCisterna Magna: ?Normal appearance Nuchal Fold: ?Normal appearance Neck: ? Normal appearance Face Face Profile: ? Normal appearance Nasal Bone: ? Normal appearance Coronal Face: ? Normal appearance Lips: ? Normal appearance Nose: ? Normal appearance Lenses: ? Normal appearance Orbits: ? Normal appearance Palate: ? Suboptimal views Heart Cardiac Activity: ? Normal appearance Cardiac Rhythm: ? Normal appearance 4 Chamber View: ? Normal appearance R. Outflow Tract: ? Normal appearance L. Outflow Tract: ? Normal appearance Interventr. Septum: ? Normal appearance 3 Vessel View: ?Normal appearance 3V Trachea View: ?Normal appearance Cardiac Situs: ?Normal appearance Aortic ??Arch: ? Normal appearance SVC: ?Normal appearance IVC: ?Normal appearance Ductal ??Arch: ? Normal appearance Crossing G. Ves.: ? Normal appearance Thorax Lungs: ?Normal appearance Cardiac [place]: ? Normal appearance Diaphragm: ?Normal appearance Thoracic Contour: ? Normal appearance Abdomen Situs: ?Normal appearance Stomach: ?Normal appearance Bowel: ?Normal appearance Liver: ?Normal appearance Abdominal Wall: ? Normal appearance Urinary Bladder: ?Normal appearance R. Kidney: ?Normal appearance L. Kidney: ?Normal appearance R. Renal Artery: ?Normal appearance L. Renal Artery: ?Normal appearance Umbilical Cord: ? Normal Appearance UC Vessel Num.: ? Normal 3VC Cord Insertion: ? Normal appearance Spine Cervical: ? Normal appearance Thoracic: ? Normal appearance Lumbar: ? Normal appearance Sacral: ? Normal appearance Shape / Curvature: ?Normal appearance Over. Soft Tissue: ?Normal appearance Vertebral Body: ? Normal appearance Extremities R. Humerus: ? Normal appearance L. Humerus: ? Normal appearance R. Forearm: ? Normal appearance L. Forearm: ? Normal appearance R. Hand: ?Normal appearance L. Hand: ?Normal appearance R. Femur: ? Normal appearance L. Femur: ? Normal appearance R. Lower Leg: ? Normal appearance L. Lower Leg: ? Normal appearance R. Foot: ?Normal appearance L. Foot: ?Normal appearance Other Genitalia: ?Female CERVIX UTERUS ADNEXA: Right Ovary Size(cm) ? 2.71 ?? x ?? 2.44 ?? x ??1.69 ?Vol(ml): 5.85 Normal in size and appearance. It is found between the uterus and the pelvic sidewall. Left Ovary Size(cm) ? 2.28 ?? x ?? 2.96 ?? x ??1.94 ?Vol(ml): 6.86 Normal in size and appearance. It is found between the uterus and the pelvic sidewall. COMMENTS: Ms. Celine Her is being seen for an anatomical survey. - Her medical history is significant for gastric bypass surgery. Her obstetrical history is significant for three term vaginal deliveries. - She had cell free DNA screening. ??Results are low- risk for all conditions assessed. Ultrasound findings: The biometry and anatomical survey are appropriate for the gestational age. ??There are no markers of aneuploidy. ??- The patient declined vaginal ultrasound to assess cervical length for risk of . - Plan: She has been scheduled for follow up assessment of growth at 32 weeks for history of bariatric surgery. Praveena Lindsay MD Electronically Signed Final Report ?? 01/11/2025 01:48 pm Procedure Praveena Munroe MD - 01/11/2025 OBSTETRICS REPORT (Signed Final 01/11/2025 01:48 pm) PATIENT INFO: ID #: [id number] : [birth year] (29 yrs)(F) Name: FRANKIE CUENCA Visit Date: 01/11/2025 08:29 am ADALBERTO PERFORMED BY: Attending: Praveena Lindsay MD Performed By: Toi Du RDPA Referred By: Kerry Sorto CNM Ref. Address: [address] [place] [address] Location: [facility] ([facility]) SERVICE(S) PROVIDED: US Level II complete (Targeted OB) [address] INDICATIONS: Bariatric surgery status complicating O99.842 , second trimester Encounter for screening for Z36.3 malformations 20 weeks gestation of Z3A.20 TECHNIQUE/SCAN QUALITY: Technique: Transabdominal Scan Satisfactory Quality: OB HISTORY: : 4 Term: 3 Daryn: 0 SAB: 0 TOP: 0 Ectopic: 0 Livin VITAL SIGNS: Weight (lb) Height BMI 154 5'3 27.28 EVALUATION: Number Of Fetuses: 1 Heart Rate(bpm): 149 Cardiac Activity: Observed Presentation: Cephalic Placenta Location: Anterior Appearance: Grade 1 Relation to CVX: No previa Cord Insertion: Normal appearance Amniotic Fluid ANDREW FV: Within Normal Limits Comment: A >2 x 2 cm pocket of fluid is noted. BIOMETRY: BPD: 49.4 mm G.Age: 21w 0d 76 % HC: 183.5 mm G.Age: 20w 5d 62 % AC: 153.8 mm G.Age: 20w 4d 54 % FL: 34.9 mm G.Age: 21w 0d 68 % HUM: 31.1 mm G.Age: 20w 2d 53 % CER: 21.4 mm G.Age: 20w 3d 52 % NFT: 3.7 mm NB: 7.12 mm 58 % > 1 MoM LV: 6.8 mm CM: 5.4 mm OOD: 31.9 mm G.Age: 19w 2d 42 % CI: 73.21 % 70 - 86 FL/HC: 19.0 % 16.8 - 19.8 HC/AC: 1.19 1.09 - 1.39 FL/BPD: 70.6 % FL/AC: 22.7 % 20 - 24 Est. FW: 376 gm 0 lb 13 oz 73 % GESTATIONAL AGE: LMP: 20w 2d Date: 08/22/24 SIVAN: 05/29/25 U/S Today: 20w 6d SIVAN: 05/25/25 Best: 20w 2d Det. By: LMP (08/22/24) SIVAN: 05/29/25 DETAILED ANATOMY: Head / Neck Cranial Vault: Normal appearance Cavum Septi Pellucidi: Normal appearance Parenchyma: Normal appearance R. Lat. Ventricle: Normal appearance L. Lat. Ventricle: Normal appearance Corpus Callosum: Normal appearance Midline Falx: Normal appearance R. Choroid Plexus: Normal appearance L. Choroid Plexus.: Normal appearance Cerebellum: Normal appearance CCisterna Magna: Normal appearance Nuchal Fold: Normal appearance Neck: Normal appearance Face Face Profile: Normal appearance Nasal Bone: Normal appearance Coronal Face: Normal appearance Lips: Normal appearance Nose: Normal appearance Lenses: Normal appearance Orbits: Normal appearance Palate: Suboptimal views Heart Cardiac Activity: Normal appearance Cardiac Rhythm: Normal appearance 4 Chamber View: Normal appearance R. Outflow Tract: Normal appearance L. Outflow Tract: Normal appearance Interventr. Septum: Normal appearance 3 Vessel View: Normal appearance 3V Trachea View: Normal appearance Cardiac Situs: Normal appearance Aortic Arch: Normal appearance SVC: Normal appearance IVC: Normal appearance Ductal Arch: Normal appearance Crossing G. Ves.: Normal appearance Thorax Lungs: Normal appearance Cardiac [place]: Normal appearance Diaphragm: Normal appearance Thoracic Contour: Normal appearance Abdomen Situs: Normal appearance Stomach: Normal appearance Bowel: Normal appearance Liver: Normal appearance Abdominal Wall: Normal appearance Urinary Bladder: Normal appearance R. Kidney: Normal appearance L. Kidney: Normal appearance R. Renal Artery: Normal appearance L. Renal Artery: Normal appearance Umbilical Cord: Normal Appearance UC Vessel Num.: Normal 3VC Cord Insertion: Normal appearance Spine Cervical: Normal appearance Thoracic: Normal appearance Lumbar: Normal appearance Sacral: Normal appearance Shape / Curvature: Normal appearance Over. Soft Tissue: Normal appearance Vertebral Body: Normal appearance Extremities R. Humerus: Normal appearance L. Humerus: Normal appearance R. Forearm: Normal appearance L. Forearm: Normal appearance R. Hand: Normal appearance L. Hand: Normal appearance R. Femur: Normal appearance L. Femur: Normal appearance R. Lower Leg: Normal appearance L. Lower Leg: Normal appearance R. Foot: Normal appearance L. Foot: Normal appearance Other Genitalia: Female CERVIX UTERUS ADNEXA: Right Ovary Size(cm) 2.71 x 2.44 x 1.69 Vol(ml): 5.85 Normal in size and appearance. It is found between the uterus and the pelvic sidewall. Left Ovary Size(cm) 2.28 x 2.96 x 1.94 Vol(ml): 6.86 Normal in size and appearance. It is found between the uterus and the pelvic sidewall. COMMENTS: Ms. Celine Her is being seen for an anatomical survey. - Her medical history is significant for gastric bypass surgery. Her obstetrical history is significant for three term vaginal deliveries. - She had cell free DNA screening. Results are low- risk for all conditions assessed. Ultrasound findings: The biometry and anatomical survey are appropriate for the gestational age. There are no markers of aneuploidy. - The patient declined vaginal ultrasound to assess cervical length for risk of . - Plan: She has been scheduled for follow up assessment of growth at 32 weeks for history of bariatric surgery. Praveena Lindsay MD Electronically Signed Final Report 01/11/2025 01:48 pm Kerry Sorto CNM IMG OB US PROCEDURES Final Re sult * External clinical lab (01/11/2025) Only the most recent of3 resultswithin the time period is included. us Provider [facility] BLOOD ORDERABLES Fin al Result * Alpha fetoprotein, maternal (12/20/2024 10:11 AM EST) Physician Phone Number [phone] 12/24/2024 11:30 AM EDT [facility] Notes to Laboratory Not Provided 12/24/2024 11:30 AM EDT [facility] Weight (lbs) 154 12/24/2024 11:30 AM EDT [facility] Expected Due Date (MM/DD/YYYY) [id number] 12/24/2024 11:30 AM EDT [facility] Expected Due Date Based On? Ultrasound 12/24/2024 11:30 AM EDT [facility] Twin ? No - [place] 12/24/2024 11:30 AM EDT [facility] Race 12/24/2024 11:30 AM EDT [facility] Insulin Dependent Diabetic? No 12/24/2024 11:30 AM EDT [facility] Does Patient Currently Smoke Cigarettes? No 12/24/2024 11:30 AM EDT [facility] Repeat Screen for Current ? No 12/24/2024 11:30 AM EDT [facility] Previous w/ Neural Tube Defect? No 12/24/2024 11:30 AM EDT [facility] IVF ? No 12/24/2024 11:30 AM EDT [facility] Screen Result Negative Negative 12/24/2024 11:30 AM EDT [facility] Age at SIVAN (years) 30 12/24/2024 11:30 AM EDT [facility] Gestational Age (weeks) 17 12/24/2024 11:30 AM EDT [facility] Gestational Age (days) 1 12/24/2024 11:30 AM EDT [facility] Weight (lbs) 154 12/24/2024 11:30 AM EDT [facility] Multiple Gestation Single 12/24/2024 11:30 AM EDT [facility] Ethnic Origin 12/24/2024 11:30 AM EDT [facility] Insulin Dependent Diabetes None 12/24/2024 11:30 AM EDT [facility] Smoker? No 12/24/2024 11:30 AM EDT [facility] AFP 40.3 ng/mL 12/24/2024 11:30 AM EDT [facility] AFP MOM 1.12 12/24/2024 11:30 AM EDT [facility] Gestational Age Method US SIVAN 12/24/2024 11:30 AM EDT [facility] Comment: The gestational age is based on an SIVAN of 05/29/25 as determined by ultrasound. Interpretation SeeBelow 12/24/2024 11:30 AM EDT [facility] Comment: This is the initial sample received at [facility] for MSAFP SCREEN NEGATIVE FOR NEURAL TUBE DEFECTS. Additional Test Information: The MSAFP does not provide a risk estimate or a diagnosis. Incorrect or missing information may considerably alter results. A positive report is indicated when the AFP MOM is greater than or equal to 2.20. Maternal weights less than 65 lbs or greater than 440 lbs are truncated and the AFP MOM is not adjusted beyond those limits. Assessment is adjusted for insulin-dependent diabetic status, weight, race and smoking. Previous pregnancies affected with a neural tube defect may significantly affect results. Test performed at [facility], [address] [place], [place] ??[address] ? [phone] Cyndy Fu MD, PhD - Edge Trimming Machine Operator Blood Venous blood specimen / Unknown Venipuncture / Unknown 12/20/2024 10:11 AM EST 12/20/2024 10:11 AM EST us Kerry Sorto CNM LAB BLOOD ORDERABLES Final Re sult [facility] [address] [place] [address] * Hepatitis C antibody (11/05/2024 12:36 PM EST) [facility] Hepatitis C Antibody Negative Negative LAB CHEMISTRY METHOD 11/05/2024 3:14 PM EST [facility] Blood Venous blood specimen / Unknown Venipuncture / Unknown 11/05/2024 12:36 PM EST 11/05/2024 12:36 PM EST Kerry Sorto [facility] LAB BLOOD ORDERABLES Final Re sult Performing Organization Address [facility] [address]/ZIP Co de Phone Number [facility] [address] [place] [address], * HIV 1,2 antibody, p24 antigen with reflex to differentiation (11/05/2024 12:36 PM EST) Pathologist [facility] HIV Combo AB/AG Negative Negative LAB CHEMISTRY METHOD 11/05/2024 3:14 PM EST [facility] Blood Venous blood specimen / Unknown Venipuncture / Unknown 11/05/2024 12:36 PM EST 11/05/2024 12:36 PM EST Narrative [facility] - 11/05/2024 3:14 PM EST This assay is a 4th generation assay allowing for earlier detection of HIV infection by detecting the presence of the HIV-1 p24 antigen as well as the traditional antibodies to HIV type 1 (including group O) and type 2. ??Use of a 4th generation assay is the current CDC recommendation for HIV screening. Kerry HOPKINS LAB BLOOD ORDERABLES Final Re sult Performing Organization Address City/[facility] [address]/ZIP Co de Phone Number [facility] [address] [place] [address], [place] [phone] * (ABNORMAL) Lipid panel (03/01/2024) Pathologist [facility] LDL/HDL Ratio 4 0 - 4 Triglycerides 73 0 - 150 mg/dL Cholesterol 163 0 - 200 mg/dL HDL 47 >=40 mg/dL LDL Cholesterol 102(A) 0 - 100 mg/dL Blood Venous blood specimen / Unknown Historical Provider MD LAB BLOOD ORDERABLES Taryn l Result * Depression Screening (02/27/2024) Depression Screening abstracted Historical Provider MD HEALTH MAINTENANCE Final Result * Pap smear (02/03/2023) 02/03/2023 Narrative HISTORICAL TESTING LAB RESULTING AGENCY - 02/07/2023 6:41 AM EDT [id number] THINPREP PAP, IMAGED: NEGATIVE FOR SQUAMOUS INTRAEPITHELIAL LESION AND MALIGNANCY . SHIFT IN SHANTA, SUGGESTIVE OF BACTERIAL VAGINOSIS. JAREK HAMEED , RIYA(ASCP) (CASE ELECTRONICALLY SIGNED 02 06 2023) ADEQUACY: SATISFACTORY ENDOCERVICAL/TRANSFORMATION ZONE COMPONENT PRESENT. SOURCE: THINPREP PAP HPV IF ASCUS, CERVICAL, IMAGED CLINICAL INFORMATION: HPV IF DIAGNOSIS OF ASCUS. 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
== END 2025-03-18 13:10 | disposition home or self-care (01) ==
LOC: HO.HBS 13:10
PROVIDERS: PCP Internal Medicine; Visit Provider Physician Assistant Surgical
DX: Z34.90 Encounter for supervision of normal pregnancy, unspecified, unspecified trimester (principal); E66.3 Overweight; Z98.84 Bariatric surgery status
CPT/HCPCS: 99214